=== PATIENT | female | born 1980 | race Caucasian/White ===

== ENCOUNTER 2016-06-19 16:39 | Emergency (ER) | payer MEDICAID ==
[~2016-06-19] VITALS: Ht 170.2 cm; Wt 108.9 kg
[~2016-06-19 16:39] MED LIST: AC500T PO; ALBU8.5H4 IH; ALPR.5T; AMOX500C2 PO; BENZ-13 PO; BENZ200C25 PO; BPR100T PO; BUPR200T PO; CIPR500T4 PO; CPR500T PO; CYCL10TA9 PO; DICY10CA26 PO; DICY20TA57 PO; DULO60CA6 PO; FLUT16SP22 NSEACH; GUAI-370 PO; HYDR-2890 PO; HYDR-3720 PO; HYDR-3812 PO; HYDR-3820 PO; HYDR-700 PO; HYDR1TAB PO; IBP600T1 PO; IBUP-30 PO; LORA-405 PO; LORA1TAB PO; METH-53 PO; METR500T PO; MTF500T PO; NAPR-243 PO; NAPR250T34; NF-ESOM40C; NF-ESOM40C PO; ONDA8TAB13 PO; ONDAN4ODT PO; ORPH100T PO; OSLT75C PO; OXYC-12 PO; OXYC1TAB16 PO; PARO20TA57; PRD20T PO; PREG150C PO; PRM25T PO; PROM5SYR PO; RT-ALBUINH IH; SULF-222 PO; SULF1TAB38 PO; TAPE50TA PO; TYLENOL #3 PO; [UNRECOGNIZED DRUG - CODE] PO; mucinex
[2016-06-19] MEDS ORDERED: INDO50CA (16:56)
[2016-06-19] MEDS ORDERED: PREG200C (16:56)
[2016-06-19] MEDS ORDERED: CITA10TA7 (16:56)
[2016-06-19] MEDS ORDERED: CYPR4TAB (16:56)
[2016-06-19] MEDS ORDERED: OMEP40CA36 (16:56)
[2016-06-19] MEDS ORDERED: AMIT25TA9 (16:56)
[2016-06-19] MEDS ORDERED: ORPH100T (16:56)
[2016-06-19] MEDS ORDERED: DULO60CA58 (16:56)
[2016-06-19] MEDS ORDERED: morphine INJ 10 MG/ML 1ML (SYR OR VIAL) IM STA (17:27)
[2016-06-19] MEDS ORDERED: ORPHENADRINE 60 MG/2 ML (NORFLEX) AMP IM STA (17:27)
--- NOTE | 2016-06-19 17:49 | ED Back Pain ---
General Chief Complaint: Back Problems Stated Complaint: BACK PAIN Nursing Triage Note: AMBULATED TO ROOM 07 WITH COMPLAINTS OF LEFT LOWER/MID ABD PAIN. STATES SHE FELL SEVERAL NIGHTS AGO IN HER BATHROOM BUT TODAY SHE SNEEZED AND FELT A "POP". Nursing Sepsis Screen: No Definite Risk Source of Information: Patient, Spouse Exam Limitations: No Limitations History of Present Illness Time Seen by Provider: 17:17 Initial Comments 35 yo female patient presents to the ED with c/o left mid to low back pain. patient reports falling into a towel rack a few days ago. She then sneezed earlier today and felt a pop in the left lower posterior ribs. Now complains of increased left rib pain. Location: Other (left posterior ribs) Timing/Duration: 4-6 Hours Pain/Injury Location: Other (left posterior ribs) Method of Injury: Other (sneeze) Modifying Factors: Improves With Immobilization, Worse With Movement, Worse With Other (worse with palpation, sneezing, coughing, movement. Denies using home Norflex today.) Associated Symptoms: muscle spasmsNo numbness in legs/feet, No tingling in legs/feet, No sensory/motor loss, No lower back pain, No loss of bladder control , No loss of bowel control Allergies and Home Medications Allergies Coded Allergies: codeine (Verified Adverse Reaction, Mild, NAUSEA, 01/26/15) Uncoded Allergies: SEANSONAL ENVIRONMENTAL (Allergy, Mild, 01/17/14) Home Medications Amitriptyline HCl 25 Mg Tablet #60 (Reported) Citalopram Hydrobromide 10 Mg Tablet #30 (Reported) Cyproheptadine HCl 4 Mg Tablet #60 (Reported) Duloxetine HCl 60 Mg Capsule.dr 60 MG PO DAILY (Reported) Duloxetine HCl 60 Mg Capsule.dr #60 (Reported) Esomeprazole Mag Trihydrate 40 Mg Capsule.dr 40 MG PO DAILY (Reported) Hydrocodone/Acetaminophen 1 Each Tablet #12 1 EACH PO Q6H PRN PRN PAIN Prescribed by: MCKINLEY COLEY on 01/27/16 1535 Hydrocodone/Acetaminophen 1 Each Tablet #10 1 EACH PO Q6H PRN PRN PAIN Prescribed by: NOEMY GAGNON on 06/19/16 1925 Hydroxyzine HCl 25 Mg Tablet 25 MG PO QID (Reported) Indomethacin 50 Mg Capsule #90 (Reported) Lorazepam 1 Mg Tablet 1 MG PO BID (Reported) Omeprazole 40 Mg Capsule. #30 (Reported) Ondansetron 8 Mg Tab.rapdis #10 8 MG PO Q6H PRN PRN NAUSEA Prescribed by: NOEMY GAGNON on 04/12/16 1750 Orphenadrine Citrate 100 Mg Tablet.sa 100 MG PO BID (Reported) Orphenadrine Citrate 100 Mg Tablet.er #60 (Reported) Prednisone 20 Mg Tab #10 40 MG PO DAILY Prescribed by: NOEMY GAGNON on 06/19/16 1855 Pregabalin 150 Mg Capsule 150 MG PO BID (Reported) Pregabalin 200 Mg Capsule #60 (Reported) Constitutional: no symptoms reported Respiratory: No cough, No short of breath, No stridor, No wheezing Cardiovascular: no symptoms reported Gastrointestinal: no symptoms reported Genitourinary: no symptoms reported Musculoskeletal: see HPINo back pain, No joint pain, No neck pain, other ( left posterior rib pain) Skin: No change in color Psychiatric/Neurological: Denies Numbness, Denies Paresthesia, Denies Tingling , Denies Weakness All Other Systems Reviewed Negative Unless Noted: Yes (Negative excepted noted.) Past Jvqoeyt-Likxvv-Ltzhiu Hx Patient Social History Alcohol Use: Denies Use Recreational Drug Use: No Smoking Status: Never a Smoker Type Used: Cigarettes Former Smoker/When Quit: May 19, 1993 Recent Foreign Travel: No Contact w/Someone Who Travel: No Recent Infectious Disease Expo: No Recent Hopitalizations: No Immunizations Up To Date Tetanus Booster (TDap): Less than 5yrs PED Vaccines UTD: No Date of Pneumonia Vaccine: Apr 19, 2013 Date of Influenza Vaccine: Mar 19, 2015 Seasonal Allergies Seasonal Allergies: Yes Surgeries HX Surgeries: Yes (D&C in 1999 and 2001) Surgeries: Adenoidectomy, Gallbladder, Hysterectomy, Tonsillectomy Respiratory Hx Respiratory Disorders: No Cardiovascular Hx Cardiac Disorders: No Neurological Hx Neurological Disorders: No Reproductive System Hx Reproductive Disorders: Yes (UTERINE FIBROIDS) Sexually Transmitted Disease: No HIV/AIDS: No 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 Genitourinary Hx Genitourinary Disorders: No Gastrointestinal Hx Gastrointestinal Disorders: Yes Gastrointestinal Disorders: Gastroesophageal Reflux Musculoskeletal Hx Musculoskeletal Disorders: Yes (Fibromyalgia) Musculoskeletal Disorders: Fibromyalgia, Scoliosis, Chronic Back Pain Endocrine Hx Endocrine Disorders: No HEENT HX ENT Disorders: No Cancer Hx Cancer: No Psychosocial Hx Psychiatric Problems: Yes Behavioral Health Disorders: Anxiety, Depression Integumentary HX Skin/Integumentary Disorder: No Blood Transfusions Hx Blood Disorders: No Reviewed Nursing Assessment Reviewed/Agree w Nursing PMH: Yes Family Medical History Significant Family History: No Pertinent Family Hx Physical Exam Vital Signs Vital Sign - Last 12Hours 06/19/16 16:50 Temp 98.0 Pulse 94 Resp 16 B/P 139/76 Pulse Ox 97 Capillary Refill : Less Than 3 Seconds General Appearance: No Apparent Distress WD/WN Neck: Full Range of Motion Normal Inspection Non Tender Supple Cardiovascular: Regular Rate, Rhythm No Edema No Murmur Normal Peripheral Pulses Respiratory: Lungs Clear Normal Breath Sounds No Respiratory Distress Other ( left posterior lower ribs tender palpation without evidence of ecchymosis, swelling, or deformity.) Gastrointestinal: Normal Bowel Sounds Non Tender SoftNo Distended Back: Normal Inspection No Vertebral Tenderness Other (left posterior lower ribs tender palpation without evidence of ecchymosis, swelling, or deformity.) Extremity: Normal Capillary Refill Normal Inspection No Pedal Edema Neurologic/Psychiatric: Alert Oriented x3 No Motor/Sensory Deficits Normal Mood/Affect Skin: Normal Color Warm/Dry Progress/Results/Core Measures Results/Orders My Orders Orders-NOEMY GAGNON Ribs/Unilateral With Chest (06/19/16 17:27) Morphine Injection (Morphine Injection (06/19/16 17:27) Orphenadrine Injection (Norflex Injectio (06/19/16 17:27) Hydrocodone/Apap 5/325 Tablet (Lortab 5 (06/19/16 19:07) Vital Signs/I&O Vital Sign - Last 12Hours 06/19/16 06/19/16 16:50 19:13 Temp 98.0 98.0 Pulse 94 85 Resp 16 16 B/P 139/76 Pulse Ox 97 94 Blood Pressure Mean: 97 Diagnostic Imaging Diagonstic Imaging: Xray Plain Films/CT/US/NM/MRI: chest (with left ribs) Comments FINDINGS: Lungs appear clear without focal infiltrate or effusion. There is no pneumothorax. Heart size and mediastinal contours appear appropriate. Pulmonary vascularity appears within normal limits. There is no evidence of an acute osseous abnormality. Specifically, no left-sided rib fracture is evident. IMPRESSION: 1. No radiographic evidence of an acute cardiopulmonary process. 2. No rib fracture is evident. Dictated by: Dictated on workstation # [id number] Reviewed: Reviewed by Me (radiology report reviewed by me) Departure Communication Progress Notes Diagnostic findings discussed with the patient. Patient does report improvement in symptoms, but states pain is still a 4/10. Requesting something for pain prior to discharge. Upon discharge patient did report to the nurse that she is allergic to tramadol. Rx changed to hydrocodone. Patient instructed to follow-up with her primary care physician for all further prescriptions for narcotics. Impression Impression: Primary Impression: Upper back strain Qualified Code: S29.012A - Strain of muscle and tendon of back wall of thorax , initial encounter Disposition: HOME, SELF-CARE Condition: Improved Departure-Patient Inst. Decision time for Depature: 18:54 Referrals: [facility] (PCP/Family) Primary Care Physician Patient Instructions: Muscle Strain (DC) Add. Discharge Instructions: All discharge instructions reviewed with patient and/or family. Voiced understanding. Medications as instructed. Continue usual home medications. No heavy lifting, pushing, pulling, twisting, bending, climbing. Increase activity as tolerated. Ice packs or heating pad as needed for pain. Follow-up with your family practitioner for recheck if no improvement in symptoms. Return to the emergency department for worsened symptoms or any other concerns. Scripts Hydrocodone/Acetaminophen (Hydrocodon -Acetaminophen 5-325)1 Each Tablet1 Each PO Q6H PRN PAIN #10 TAB Ref 0 Prov:NOEMY GAGNON 06/19/16 Prednisone 20 Mg Tab40 Mg PO DAILY #10 TAB Ref 0 Prov:NOEMY GAGNON 06/19/16 Work/School Note: Work Release Form Date Seen in the Emergency Department: Jun 19, 2016 Return to Work: Jun 21, 2016 NOEMY GAGNON Jun 19, 2016 17:49
--- NOTE | 2016-06-19 18:08 | Diagnostic Imaging Report ---
EXAMINATION: Left rib series with PA chest. INDICATION: Left chest pain after sneezing. COMPARISON: Prior study from April 12, 2016. FINDINGS: Lungs appear clear without focal infiltrate or effusion. There is no pneumothorax. Heart size and mediastinal contours appear appropriate. Pulmonary vascularity appears within normal limits. There is no evidence of an acute osseous abnormality. Specifically, no left-sided rib fracture is evident. IMPRESSION: 1. No radiographic evidence of an acute cardiopulmonary process. 2. No rib fracture is evident. Dictated by: Dictated on workstation # [id number]
[2016-06-19] MEDS ORDERED: TRAM50TA2 PO (18:55)
[2016-06-19] MEDS ORDERED: PRD20T PO (18:55)
[2016-06-19] MEDS ORDERED: HYDROcodone/APAP 5 MG/325 MG (LORTAB) TAB PO STA (19:07)
[2016-06-19 19:13] VITALS: BP 143/99
[2016-06-19] MEDS ORDERED: HYDR-3812 PO (19:25)
== END 2016-06-19 19:13 | disposition home or self-care (01) ==
LOC: EDUNIT# 16:39 → ER 16:40
DX: S29.012A Strain of muscle and tendon of back wall of thorax, initial encounter (principal); W01.0XXA Fall on same level from slipping, tripping and stumbling without subsequent striking against object, initial encounter; Y92.012 Bathroom of single-family (private) house as the place of occurrence of the external cause; Y99.8 Other external cause status
CPT/HCPCS: 71101; 96372; 99281

== ENCOUNTER 2017-04-15 09:05 | Emergency (ER) | payer SELFPAY ==
[~2017-04-15] VITALS: Ht 170.2 cm; Wt 107.0 kg
[~2017-04-15 09:05] MED LIST changes: +AMIT25TA9; +CITA10TA7; +CYPR4TAB; +DULO60CA58; +INDO50CA; +OMEP40CA36; +ORPH100T; +PREG200C; +TRAM50TA2 PO
--- OUTSIDE RECORDS SUMMARY | 2017-04-15 09:11 | XMS REPORT ---
Author Author CARMENCITA REID Organization [facility] Address [address] [place] [address] Care Team Providers Care Hat Blocking Machine Operator Name Role Phone CARMENCITA REID Unavailable PROBLEMS Type Condition ICD9-CM Code [id number] Code Onset Dates Condition Status SNOMED Code Problem GERD (gastroesophageal reflux disease) K21.9 Active 247472343 Problem Anxiety F41.9 Active 53636725 Problem Allergic rhinitis J30.9 Active 01608500 Problem Generalized anxiety disorder F41.1 Active 77946534 Problem Major depressive disorder, recurrent, moderate F33.1 Active 11694367 Problem Scoliosis, unspecified scoliosis type, unspecified spinal region M41.9 Active 586891090 Problem Nonintractable migraine, unspecified migraine type G43.009 Active 82315355 Problem Panic disorder [episodic paroxysmal anxiety] without agoraphobia F41.0 Active 92844633 Problem Intractable migraine with aura without status migrainosus G43.119 Active 136341682 Problem Eye exam normal Z01.00 Active 524523765 Problem Encounter for dental examination Z01.20 Active 788330736 Problem Idiopathic neuropathy G60.9 Active 32194308 Assessment Generalized anxiety disorder F41.1 14 Jan, 2016 Active 90509279 Problem Fibromyalgia M79.7 Active 66473950 ALLERGIES Unknown Allergies SOCIAL HISTORY No smoking Hx information available PLAN OF CARE VITAL SIGNS MEDICATIONS Unknown Medications RESULTS No Results PROCEDURES Procedure Date Ordered Related Diagnosis Body Site Psychotherapy, patient &/family, 45 minutes, established patient Jan 31, 2016 IMMUNIZATIONS No Known Immunizations
--- OUTSIDE RECORDS SUMMARY | 2017-04-15 09:11 | XMS REPORT ---
Author Author YUE RAMIREZ [facility] [employer] Address Unknown Phone Unavailable Care Team Providers Care Internal Wholesaler Name Role Phone YUE RAMIREZ CP Unavailable Allergies, Adverse Reactions, Alerts Substance Reaction Event Type Tramadol HCl Info Not Available Drug Allergy Naproxen rash Drug Allergy Codeine Sulfate Info Not Available Drug Allergy Augmentin rash Drug Allergy Problems Problem Type Condition Code Onset Dates Condition Status Assessment Anxiety disorder, unspecified F41.9 Active Problem Encounter for dental examination Z01.20 Active Assessment Major depression F32.9 Active Problem Nonintractable migraine, unspecified migraine type G43.009 Active Problem Anxiety F41.9 Active Problem Scoliosis, unspecified scoliosis type, unspecified spinal region M41.9 Active Problem Fibromyalgia M79.7 Active Problem Idiopathic neuropathy G60.9 Active Problem Allergic rhinitis J30.9 Active Problem GERD (gastroesophageal reflux disease) K21.9 Active Medications Medication Code System Code Instructions Start Date End Date Status Dosage HydrOXYzine HCl [facility] [address]-54 25 MG Orally 4 times a day October 11, 2015 1 tablet as needed Orphenadrine Citrate ER [facility] [address]-66 100 MG Orally twice a day September 1 tablet Cymbalta [facility] [address]-78 60 MG Orally Twice a day November 15, 2015 1 capsule Ativan [facility] [address]-31 1 MG Orally three times a day Jun 26, 2015 1 tablet as needed Imitrex [facility] [address]-06 100 MG Orally Once a day at onset of headache and may repeat in 2 hours November 14, 2015 1 tablet as needed for migraine Trazodone HCl [facility] [address]-33 100 MG Orally Once a day November 15, 2015 1 tablet at bedtime Hydrocodone-Acetaminophen [facility] [address]-13 10-325 MG Orally every 6 hrs Mar 28, 2015 1 tablet as needed for severe pain Lyrica [facility] [address]-05 200 MG Orally Twice a day August 17, 2015 1 capsule Flonase Allergy Relief [facility] [address]-12 50 MCG/ACT Nasally Once a day September 18, 2015 2 sprays in each nostril Omeprazole [facility] [address]-89 40 mg Orally Once a day September 18, 2015 1 capsule Procedures Procedure Coding System Code Date MH Office Visit, Est Pt., Level 3 CPT-4 01051 November 15, 2015 Vital Signs Date/Time: November 15, 2015 Cardiac Monitoring Heart Rate 104 bpm Weight 226.0 lbs Height 67 in Blood Pressure Diastolic 84 mmHg Blood Pressure Systolic 110 mmHg Results No Known Results Summary Purpose [employer] Submission
--- OUTSIDE RECORDS SUMMARY | 2017-04-15 09:11 | XMS REPORT ---
Author Author FADIA LAURA Organization [employer] Address Unknown Phone Unavailable Care Team Providers Care Machine Scallop Cutter Name Role Phone FADIA LAURA CP Unavailable Allergies No Known Allergies Problems Problem Type Condition Code Onset Dates Condition Status Problem Abdominal pain, right lower quadrant 789.03 Active Problem Explosive personality disorder 301.3 Active Problem Sciatica 724.3 Active Problem Acute sinusitis, unspecified 461.9 Active Problem Leukorrhea, not specified as infective 623.5 Active Problem Encounter for dental examination Z01.20 Active Problem Routine general medical examination at health care facility V70.0 Active Problem Anxiety state, unspecified 300.00 Active Problem Other specified counseling V65.49 Active Problem Scoliosis (and kyphoscoliosis), idiopathic 737.30 Active Problem Dysfunction of Eustachian tube 381.81 Active Problem Other and unspecified noninfectious gastroenteritis and colitis 558.9 Active Problem Candidiasis of skin and nails 112.3 Active Problem Abdominal pain, left lower quadrant 789.04 Active Problem Migraine with aura, without mention of intractable migraine without mention of status migrainosus 346.00 Active Medications Medication Code System Code Instructions Start Date End Date Status Dosage Nexium [facility] [address]-03 40 MG Jun 27, 2014 1 capsule by Oral route 1 time per day Results No Known Results Summary Purpose [employer] Submission
--- OUTSIDE RECORDS SUMMARY | 2017-04-15 09:11 | XMS REPORT ---
Author Author FADIA LAURA Organization [employer] Address Unknown Phone Unavailable Care Team Providers Care Email Specialist Name Role Phone FADIA LAURA CP Unavailable Allergies No Known Allergies Problems Problem Type Condition Code Onset Dates Condition Status Problem Migraine with aura, without mention of intractable migraine without mention of status migrainosus 346.00 Active Problem Sciatica 724.3 Active Problem Abdominal pain, right lower quadrant 789.03 Active Problem Leukorrhea, not specified as infective 623.5 Active Problem Other specified counseling V65.49 Active Problem Acute sinusitis, unspecified 461.9 Active Problem Anxiety state, unspecified 300.00 Active Problem Explosive personality disorder 301.3 Active Problem Scoliosis (and kyphoscoliosis), idiopathic 737.30 Active Problem Routine general medical examination at health care facility V70.0 Active Problem Abdominal pain, left lower quadrant 789.04 Active Problem Dysfunction of Eustachian tube 381.81 Active Problem Other and unspecified noninfectious gastroenteritis and colitis 558.9 Active Problem Candidiasis of skin and nails 112.3 Active Medications Medication Code System Code Instructions Start Date End Date Status Dosage Hydrocodone-Acetaminophen [facility] [address]-78 10-325 MG Orally every 6 hrs Mar 28, 2015 1 tablet as needed Results No Known Results Summary Purpose [employer] Submission
--- OUTSIDE RECORDS SUMMARY | 2017-04-15 09:12 | XMS REPORT ---
Author Author FADIA LAURA [facility] Address [address] [place] [address] Care Team Providers Care Tobacco Grower Name Role Phone FADIA LAURA Unavailable PROBLEMS Type Condition ICD9-CM Code [id number] Code Onset Dates Condition Status SNOMED Code Problem Seasonal allergic rhinitis due to pollen J30.1 Active 39286495 Problem Lumbago with sciatica, unspecified side M54.40 Active 36771332 Problem Other headache syndrome G44.89 Active 362753732 Problem Tonsillar calculus J35.8 Active 4978334 Problem Idiopathic neuropathy G60.9 Active 06144619 Problem Irritable bowel syndrome with diarrhea K58.0 Active 856432897 Problem Encounter for dental examination Z01.20 Active 900573627 Problem Eye exam normal Z01.00 Active 872205895 Problem Right arm numbness R20.2 Active 507970824 Problem Post concussion syndrome F07.81 Active 51371772 Problem Acute non intractable tension-type headache G44.209 Active 740713566 Problem Right carpal tunnel syndrome G56.01 Active 566638047474818 Problem GERD (gastroesophageal reflux disease) K21.9 Active 960564039 Problem Anxiety F41.9 Active 50288268 Problem Fibromyalgia M79.7 Active 37187215 Problem Allergic rhinitis J30.9 Active 45979158 Problem Generalized anxiety disorder F41.1 Active 50984994 Problem Panic disorder [episodic paroxysmal anxiety] without agoraphobia F41.0 Active 522631917 Problem Scoliosis, unspecified scoliosis type, unspecified spinal region M41.9 Active 330345953 Problem Major depressive disorder, recurrent, moderate F33.1 Active 24635114 Problem Intractable migraine with aura without status migrainosus G43.119 Active 671096201 Problem Migraine without aura and without status migrainosus, not intractable G43.009 Active 563173124 ALLERGIES No Information SOCIAL HISTORY Never Assessed PLAN OF CARE VITAL SIGNS MEDICATIONS Medication Instructions Dosage Frequency Start Date End Date Duration Status Elavil 25 MG Orally Once a day at bedtime for headache 1-2 tablet Apr Active RESULTS No Results PROCEDURES No Known procedures IMMUNIZATIONS No Known Immunizations MEDICAL (GENERAL) HISTORY Type Description Date Medical History gastroesophageal reflux disease (GERD) Medical History scoliosis Medical History depression Medical History HPV Medical History herpetic lesion of vulva Surgical History tubal ligation 2002 Surgical History tonsillectomy and adenoidectomy 1994 Surgical History hysterectomy for fibroids at [facility] by [facility] 06/2020 Surgical History cholecystectomy 2005 Surgical History Labrum repair 01/30/2016 Hospitalization History surgeries Hospitalization History [facility] for bruised ribs/post fall 12/09/15
--- OUTSIDE RECORDS SUMMARY | 2017-04-15 09:12 | XMS REPORT ---
Author Author FADIA LAURA [facility] Address [address] [place] [address] Care Team Providers Care Canning Machine Operator Name Role Phone FADIA LAURA Unavailable PROBLEMS Type Condition ICD9-CM Code [id number] Code Onset Dates Condition Status SNOMED Code Problem Panic disorder [episodic paroxysmal anxiety] without agoraphobia F41.0 Active 17943553 Problem Generalized anxiety disorder F41.1 Active 42212836 Problem Major depressive disorder, recurrent, moderate F33.1 Active 36524816 Problem Post concussion syndrome F07.81 Active 42035152 Assessment Post concussion syndrome F07.81 Apr, Active 64793552 Problem Lumbago with sciatica, unspecified side M54.40 Active 42012161 Problem Seasonal allergic rhinitis due to pollen J30.1 Active 00500681 Problem Migraine without aura and without status migrainosus, not intractable G43.009 Active 546072686 Problem Tonsillar exudate J35.8 Active 657027227 Problem Other headache syndrome G44.89 Active 108900270 Problem Idiopathic neuropathy G60.9 Active 40189000 Problem Fibromyalgia M79.7 Active 95946030 Problem Eye exam normal Z01.00 Active 091036807 Problem Encounter for dental examination Z01.20 Active 228055067 Problem Anxiety F41.9 Active 01520544 Problem Nonintractable migraine, unspecified migraine type G43.009 Active 43771627 Problem GERD (gastroesophageal reflux disease) K21.9 Active 376077338 Problem Scoliosis, unspecified scoliosis type, unspecified spinal region M41.9 Active 797187578 Problem Allergic rhinitis J30.9 Active 49859246 Problem Intractable migraine with aura without status migrainosus G43.119 Active 961621454 ALLERGIES Substance Reaction Event Type Date Status Tramadol HCl Unknown Drug Allergy Apr, Active Naproxen rash Drug Allergy Apr, Active Codeine Sulfate Unknown Drug Allergy Apr, Active Augmentin rash Drug Allergy Apr, Active SOCIAL HISTORY No smoking Hx information available PLAN OF CARE VITAL SIGNS Height 67 in 2016-04-25 Weight 245 lbs 2016-04-25 Heart Rate 88 bpm 2016-04-25 Respiratory Rate 20 2016-04-25 BMI 38.37 kg/m2 2016-04-25 Blood pressure systolic 100 mmHg 2016-04-25 Blood pressure diastolic 70 mmHg 2016-04-25 MEDICATIONS Medication Instructions Dosage Frequency Start Date End Date Duration Status Omeprazole 40 MG TAKE ONE CAPSULE BY MOUTH ONCE DAILY 90 Active Lyrica 200 MG Orally Twice a day 1 capsule 12h Jul, 30 days Active HydrOXYzine HCl 25 MG Orally 4 times a day 1 tablet as needed 6h September, 30 days Active Citalopram Hydrobromide 10 MG Orally Once a day 1 tablet 24h Dec, 30 days Active Promethazine-Codeine 6.25-10 MG/5ML Orally every 6 hrs 5 - 10 ml as needed 6h Mar, Active Orphenadrine Citrate ER 100 MG TAKE ONE TABLET BY MOUTH TWICE DAILY 30 Active Indomethacin 50 mg Orally every 8 hours, PRN 1 capsule with food or milk Apr, Active Promethazine HCl 25 MG TAKE ONE TABLET BY MOUTH EVERY 6 HOURS NEEDED FOR NAUSEA 7 Active Ativan 1 MG Orally three times a day 1 tablet as needed 8h Jun, 30 days Active Albuterol Sulfate (2.5 MG/3ML) 0.083% Inhalation every 6 hrs as needed for cough 3 ml Mar, Active Ibuprofen 800 MG Orally Three times a day 1 tablet 8h Active Cymbalta 60 MG Orally Twice a day 1 capsule 12h Oct, 30 days Active Cyproheptadine HCl 4 MG Orally once a day 2 tablet 24h Mar, 30 day(s) Active Elavil 25 MG Orally Once a day at bedtime for headache 1-2 tablet Apr Active Maxalt 10 mg Orally Once a day 1 tablet as needed May repeat in 2 hours 24h Nov, Active RESULTS No Results PROCEDURES Procedure Date Ordered Related Diagnosis Body Site Office Visit, Est Pt., Level 3 Apr 25, 2016 IMMUNIZATIONS No Known Immunizations
--- OUTSIDE RECORDS SUMMARY | 2017-04-15 09:12 | XMS REPORT ---
Author Author FADIA LAURA Organization [employer] Address Unknown Phone Unavailable Care Team Providers Care Section Weaver Name Role Phone FADIA LAURA CP Unavailable Allergies No Known Allergies Problems Problem Type Condition Code Onset Dates Condition Status Problem Encounter for dental examination Z01.20 Active Problem Nonintractable migraine, unspecified migraine type G43.009 Active Problem Anxiety F41.9 Active Problem Scoliosis, unspecified scoliosis type, unspecified spinal region M41.9 Active Problem Fibromyalgia M79.7 Active Problem Idiopathic neuropathy G60.9 Active Problem Allergic rhinitis J30.9 Active Problem GERD (gastroesophageal reflux disease) K21.9 Active Medications No Known Medications Results No Known Results Summary Purpose [employer]ClinicalWorks Submission
--- OUTSIDE RECORDS SUMMARY | 2017-04-15 09:12 | XMS REPORT ---
Author Author FADIA LAURA [facility] Address [address] [place] [address] Care Team Providers Care Nurse Midwife Name Role Phone FADIA LAURA Unavailable PROBLEMS Type Condition ICD9-CM Code [id number] Code Onset Dates Condition Status SNOMED Code Problem Encounter for dental examination Z01.20 Active 958058858 Problem Fibromyalgia M79.7 Active 44515669 Problem Idiopathic neuropathy G60.9 Active 85413471 Assessment SLAP lesion of right shoulder S43.431A Dec, Active 341379813 Assessment Intractable migraine with aura without status migrainosus G43.119 Dec, Active 743629945 Problem Eye exam normal Z01.00 Active 013414240 Problem Intractable migraine with aura without status migrainosus G43.119 Active 789729045 Problem Scoliosis, unspecified scoliosis type, unspecified spinal region M41.9 Active 831377122 Problem Allergic rhinitis J30.9 Active 95967518 Problem GERD (gastroesophageal reflux disease) K21.9 Active 726157269 Problem Nonintractable migraine, unspecified migraine type G43.009 Active 02785572 Problem Anxiety F41.9 Active 54124493 ALLERGIES Substance Reaction Event Type Date Status Tramadol HCl Unknown Drug Allergy Dec, Active Naproxen rash Drug Allergy Dec, Active Codeine Sulfate Unknown Drug Allergy Dec, Active Augmentin rash Drug Allergy Dec, Active SOCIAL HISTORY No smoking Hx information available PLAN OF CARE VITAL SIGNS Height 67 in 2016-01-08 Weight 229.4 lbs 2016-01-08 Heart Rate 80 bpm 2016-01-08 Respiratory Rate 16 2016-01-08 BMI 35.93 kg/m2 2016-01-08 Blood pressure systolic 114 mmHg 2016-01-08 Blood pressure diastolic 74 mmHg 2016-01-08 MEDICATIONS Medication Instructions Dosage Frequency Start Date End Date Duration Status Promethazine HCl 25 MG Orally every 6 hrs 1 tablet as needed for nausea 6h Active Cymbalta 60 MG Orally Twice a day 1 capsule 12h Oct, 30 day(s) Active Flonase Allergy Relief 50 MCG/ACT Nasally Once a day 2 sprays in each nostril 24h September, 30 day(s) Active Trazodone HCl 100 MG Orally Once a day 1 tablet at bedtime 24h Oct, 30 day(s) Active Ativan 1 MG Orally three times a day 1 tablet as needed 8h 08 Jun, 2015 Active Orphenadrine Citrate ER 100 MG Orally twice a day 1 tablet 12h September, 30 Active HydrOXYzine HCl 25 MG Orally 4 times a day 1 tablet as needed 6h September, 30 days Active Hydrocodone-Acetaminophen 10-325 MG Orally every 6 hrs 1 tablet as needed for severe pain 6h Mar, Active Ibuprofen 800 MG Orally Three times a day 1 tablet 8h Active Atenolol 25 MG Orally Once a day 1 tablet 24h Nov, Active Omeprazole 40 mg Orally Once a day 1 capsule 24h September, 30 day(s ) Active Lyrica 200 MG Orally Twice a day 1 capsule 12h Jul, 30 days Active Maxalt 10 mg Orally Once a day 1 tablet as needed May repeat in 2 hours 24h Nov, Active RESULTS No Results PROCEDURES Procedure Date Ordered Related Diagnosis Body Site Office Visit, Est Pt., Level 3 Jan 08, 2016 IMMUNIZATIONS No Known Immunizations
--- OUTSIDE RECORDS SUMMARY | 2017-04-15 09:12 | XMS REPORT ---
Author Author FADIA LAURA Organization [employer] Address Unknown Phone Unavailable Care Team Providers Care Freight Shipping Agent Name Role Phone FADIA LAURA CP Unavailable Allergies No Known Allergies Problems Problem Type Condition Code Onset Dates Condition Status Problem Nonintractable migraine, unspecified migraine type G43.009 Active Problem Intractable migraine with aura without status migrainosus G43.119 Active Problem Scoliosis, unspecified scoliosis type, unspecified spinal region M41.9 Active Problem Other headache syndrome G44.89 Active Problem Seasonal allergic rhinitis due to pollen J30.1 Active Problem Tonsillar exudate J35.8 Active Problem Major depressive disorder, recurrent, moderate F33.1 Active Problem Panic disorder [episodic paroxysmal anxiety] without agoraphobia F41.0 Active Problem Migraine without aura and without status migrainosus, not intractable G43.009 Active Problem Generalized anxiety disorder F41.1 Active Problem Eye exam normal Z01.00 Active Problem Fibromyalgia M79.7 Active Problem GERD (gastroesophageal reflux disease) K21.9 Active Problem Encounter for dental examination Z01.20 Active Problem Allergic rhinitis J30.9 Active Problem Idiopathic neuropathy G60.9 Active Problem Anxiety F41.9 Active Medications No Known Medications Results No Known Results Summary Purpose [employer]ClinicalWorks Submission
--- OUTSIDE RECORDS SUMMARY | 2017-04-15 09:12 | XMS REPORT ---
Author Author YUE RAMIREZ [facility] e[employer] Address Unknown Phone Unavailable Care Team Providers Care Psych Rn Name Role Phone YUE RAMIREZ CP Unavailable [...] Problem Dysfunction of Eustachian tube 381.81 Active Assessment Anxiety state, unspecified F41.1 Active Problem Other and unspecified noninfectious gastroenteritis and colitis 558.9 Active Assessment Major depression F32.9 Active Problem Candidiasis of skin and nails 112.3 Active Medications Medication Code System Code Instructions Start Date End Date Status Dosage Flonase [facility] [address]-93 50 mcg/actuation 2 spray(s) intranasally once a day August 03, 2013 2 sprays by Nasal route 1 time per day Lyrica [facility] [address]-88 200 MG Orally 2 times a day Jul 11, 2014 1 capsule by Oral route 2 times per day for fibromyalgia (729.1) or idioapathic neuropathy (356.9) Robaxin-750 [facility] [address]-85 750 MG Orally 3 times a day as needed for pain November 09, 2014 1 tablet Cymbalta [facility] [address]-73 60 MG Orally Once a day Mar 03, 2015 1 capsule Ativan [facility] [address]-89 1 MG 2 times a day Jul 11, 2014 0.5-1 tablet by Oral route 2 times per day PRN Must last 30 days-take only for severe anxiety Nexium [facility] [address]-49 40 MG Jun 27, 2014 1 capsule by Oral route 1 time per day Orphenadrine Citrate ER [facility] 62671941634 100 MG Orally 2 times a day 1 tablet Hydrocodone-Acetaminophen [facility] [address]-53 10-325 MG Orally every 6 hrs Mar 28, 2015 1 tablet as needed Promethazine HCl [facility] 53554873078 25 MG Orally every 6 hrs 1 tablet as needed for nausea Procedures Procedure Coding System Code Date MH Office Visit, Est Pt., Level 3 CPT-4 47054 Mar 31, 2015 Vital Signs Date/Time: Mar 31, 2015 Cardiac Monitoring Heart Rate 76 bpm Weight 231.0 lbs Height 67 in BMI 36.18 Index Blood Pressure Diastolic 76 mmHg Blood Pressure Systolic 118 mmHg Results No Known Results Summary Purpose [employer]ClinicalWorks Submission
--- OUTSIDE RECORDS SUMMARY | 2017-04-15 09:12 | XMS REPORT ---
Author Author CHA YOON [facility] eClinical[employer] Address Unknown Phone Unavailable Care Team Providers Care Managing Partner Name Role Phone CHA YOON CP Unavailable Allergies No Known Allergies Problems [...] Dysfunction of Eustachian tube 381.81 Active Assessment Injury of peroneal tendon of right foot S89.81XA Active Problem Other and unspecified noninfectious gastroenteritis and colitis 558.9 Active Assessment Right ankle sprain S93.401A Active Problem Candidiasis of skin and nails 112.3 Active Medications No Known Medications Procedures Procedure Coding System Code Date Office Visit, Est Pt., Level 3 CPT-4 86871 Apr 27, 2015 Vital Signs Date/Time: Apr 27, 2015 Blood Pressure Diastolic 70 mmHg Blood Pressure Systolic 110 mmHg Height 67 in Results No Known Results Summary Purpose eClinicalWorks Submission
--- OUTSIDE RECORDS SUMMARY | 2017-04-15 09:12 | XMS REPORT ---
Author Author FADIA LAURA Organization [employer] Address Unknown Phone Unavailable Care Team Providers Care Spring Coiler Name Role Phone FADIA LAURA CP Unavailable Allergies No Known Allergies Problems Problem Type Condition Code Onset Dates Condition Status Problem Routine general medical examination at health care facility V70.0 Active Problem Other specified counseling V65.49 Active Problem Scoliosis (and kyphoscoliosis), idiopathic 737.30 Active Problem GERD (gastroesophageal reflux disease) K21.9 Active Assessment GERD (gastroesophageal reflux disease) K21.9 Active Problem Fibromyalgia M79.7 Active Assessment Fibromyalgia M79.7 Active Problem Allergic rhinitis J30.9 Active Problem Acute sinusitis, unspecified 461.9 Active Problem Leukorrhea, not specified as infective 623.5 Active Problem Idiopathic neuropathy G60.9 Active Problem Encounter for dental examination Z01.20 Active Problem Dysfunction of Eustachian tube 381.81 Active Problem Other and unspecified noninfectious gastroenteritis and colitis 558.9 Active Assessment Allergic rhinitis J30.9 Active Problem Abdominal pain, left lower quadrant 789.04 Active Problem Abdominal pain, right lower quadrant 789.03 Active Problem Sciatica 724.3 Active Problem Candidiasis of skin and nails 112.3 Active Problem Explosive personality disorder 301.3 Active Problem Migraine with aura, without mention of intractable migraine without mention of status migrainosus 346.00 Active Problem Anxiety state, unspecified 300.00 Active Medications Medication Code System Code Instructions Start Date End Date Status Dosage Parafon Forte DSC [facility] [address]-53 500 MG Orally Three times a day September 1 tablet Omeprazole [facility] [address]-09 40 mg Orally Once a day September 18, 2015 1 capsule Flonase Allergy Relief [facility] [address]-99 50 MCG/ACT Nasally Once a day September 18, 2015 2 sprays in each nostril Results No Known Results Summary Purpose eClinicalWorks Submission
--- OUTSIDE RECORDS SUMMARY | 2017-04-15 09:13 | XMS REPORT ---
Author Author FADIA LAURA [facility] Address [address] [place] [address] Care Team Providers Care Track Oiler Name Role Phone FADIA LAURA Unavailable PROBLEMS Type Condition ICD9-CM Code [id number] Code Onset Dates Condition Status SNOMED Code Problem Seasonal allergic rhinitis due to pollen J30.1 Active 58999869 Problem Lumbago with sciatica, unspecified side M54.40 Active 23439680 Problem Other headache syndrome G44.89 Active 491107992 Problem Tonsillar calculus J35.8 Active 6700553 Problem Idiopathic neuropathy G60.9 Active 49251135 Problem Irritable bowel syndrome with diarrhea K58.0 Active 608395465 Problem Encounter for dental examination Z01.20 Active 063987816 Problem Eye exam normal Z01.00 Active 731683711 Problem Right arm numbness R20.2 Active 754652200 Problem Post concussion syndrome F07.81 Active 94192106 Problem Acute non intractable tension-type headache G44.209 Active 190062386 Problem Right carpal tunnel syndrome G56.01 Active 930075208281718 Problem GERD (gastroesophageal reflux disease) K21.9 Active 206327262 Problem Anxiety F41.9 Active 21984368 Problem Fibromyalgia M79.7 Active 65260620 Problem Allergic rhinitis J30.9 Active 63367691 Problem Generalized anxiety disorder F41.1 Active 48560015 Problem Panic disorder [episodic paroxysmal anxiety] without agoraphobia F41.0 Active 255676946 Problem Scoliosis, unspecified scoliosis type, unspecified spinal region M41.9 Active 853261540 Problem Major depressive disorder, recurrent, moderate F33.1 Active 40145735 Problem Intractable migraine with aura without status migrainosus G43.119 Active 034983187 Problem Migraine without aura and without status migrainosus, not intractable G43.009 Active 166830248 ALLERGIES No Information SOCIAL HISTORY Never Assessed PLAN OF CARE VITAL SIGNS MEDICATIONS Unknown Medications RESULTS No Results PROCEDURES No Known procedures IMMUNIZATIONS No Known Immunizations MEDICAL (GENERAL) HISTORY Type Description Date Medical History gastroesophageal reflux disease (GERD) Medical History scoliosis Medical History depression Medical History HPV Medical History herpetic lesion of vulva Surgical History tubal ligation 2002 Surgical History tonsillectomy and adenoidectomy 1994 Surgical History hysterectomy for fibroids at [facility] by [facility] 06/2020 Surgical History cholecystectomy 2005 Surgical History Labrum repair 01/30/2016 Hospitalization History surgeries Hospitalization History [facility] for bruised ribs/post fall 12/09/15
--- OUTSIDE RECORDS SUMMARY | 2017-04-15 09:13 | XMS REPORT ---
Author Author FADIA LAURA [facility] Address [address] [place] [address] Care Team Providers Care Embedded Software Manager Name Role Phone FADIA LAURA Unavailable PROBLEMS Type Condition ICD9-CM Code BWM88-PT Code Onset Dates Condition Status SNOMED Code Problem GERD (gastroesophageal reflux disease) K21.9 Active 218805924 Problem Anxiety F41.9 Active 79874125 Problem Allergic rhinitis J30.9 Active 44659712 Problem Eye exam normal Z01.00 Active 038847020 Problem Encounter for dental examination Z01.20 Active 642464055 Problem Idiopathic neuropathy G60.9 Active 89016273 Problem Fibromyalgia M79.7 Active 08079532 Problem Generalized anxiety disorder F41.1 Active 43625282 Problem Major depressive disorder, recurrent, moderate F33.1 Active 35257348 Problem Scoliosis, unspecified scoliosis type, unspecified spinal region M41.9 Active 915206475 Problem Nonintractable migraine, unspecified migraine type G43.009 Active 11599135 Problem Panic disorder [episodic paroxysmal anxiety] without agoraphobia F41.0 Active 84128958 Problem Intractable migraine with aura without status migrainosus G43.119 Active 263310697 ALLERGIES Unknown Allergies SOCIAL HISTORY No smoking Hx information available PLAN OF CARE VITAL SIGNS MEDICATIONS Unknown Medications RESULTS No Results PROCEDURES No Known procedures IMMUNIZATIONS No Known Immunizations
--- OUTSIDE RECORDS SUMMARY | 2017-04-15 09:13 | XMS REPORT ---
Author Author FADIA LAURA [facility] Address [address] [place] [address] Care Team Providers Care Power Plant Technician Name Role Phone FADIA LAURA Unavailable PROBLEMS Type Condition ICD9-CM Code [id number] Code Onset Dates Condition Status SNOMED Code Problem Seasonal allergic rhinitis due to pollen J30.1 Active 15551642 Problem Lumbago with sciatica, unspecified side M54.40 Active 28240936 Problem Other headache syndrome G44.89 Active 708303490 Problem Tonsillar calculus J35.8 Active 3396047 Problem Idiopathic neuropathy G60.9 Active 74284899 Problem Irritable bowel syndrome with diarrhea K58.0 Active 790492709 Problem Encounter for dental examination Z01.20 Active 832554662 Problem Eye exam normal Z01.00 Active 331383029 Problem Right arm numbness R20.2 Active 070015303 Problem Post concussion syndrome F07.81 Active 05346610 Problem Acute non intractable tension-type headache G44.209 Active 282831678 Problem Right carpal tunnel syndrome G56.01 Active 828354961498282 Problem GERD (gastroesophageal reflux disease) K21.9 Active 006829506 Problem Anxiety F41.9 Active 63629891 Problem Fibromyalgia M79.7 Active 95093064 Problem Allergic rhinitis J30.9 Active 97120646 Problem Generalized anxiety disorder F41.1 Active 65838031 Problem Panic disorder [episodic paroxysmal anxiety] without agoraphobia F41.0 Active 829129990 Problem Scoliosis, unspecified scoliosis type, unspecified spinal region M41.9 Active 591072519 Problem Major depressive disorder, recurrent, moderate F33.1 Active 52230102 Problem Intractable migraine with aura without status migrainosus G43.119 Active 005292012 Problem Migraine without aura and without status migrainosus, not intractable G43.009 Active 603857030 ALLERGIES No Information SOCIAL HISTORY Never Assessed PLAN OF CARE VITAL SIGNS MEDICATIONS Medication Instructions Dosage Frequency Start Date End Date Duration Status Lyrica 200 MG Orally Twice a day 1 capsule 12h Jul, 28 days Active RESULTS No Results PROCEDURES No Known procedures IMMUNIZATIONS No Known Immunizations MEDICAL (GENERAL) HISTORY Type Description Date Medical History gastroesophageal reflux disease (GERD) Medical History scoliosis Medical History depression Medical History HPV Medical History herpetic lesion of vulva Surgical History tubal ligation 2002 Surgical History tonsillectomy and adenoidectomy 1994 Surgical History hysterectomy for fibroids at [facility] by [facility] 06/2020 Surgical History cholecystectomy 2005 Surgical History Labrum repair 01/30/2016 Hospitalization History surgeries Hospitalization History [facility] for bruised ribs/post fall 12/09/15
--- OUTSIDE RECORDS SUMMARY | 2017-04-15 09:13 | XMS REPORT ---
Author Author FADIA LAURA [facility] eClinicalWorks Address Unknown Phone Unavailable Care Team Providers Care Scrubbing Machine Operator Name Role Phone FADIA LAURA CP Unavailable Allergies No Known Allergies Problems Problem Type Condition Code Onset Dates Condition Status Problem Eye exam normal Z01.00 Active Problem Idiopathic neuropathy G60.9 Active Problem Encounter for dental examination Z01.20 Active Problem Scoliosis, unspecified scoliosis type, unspecified spinal region M41.9 Active Problem Nonintractable migraine, unspecified migraine type G43.009 Active Problem Intractable migraine with aura without status migrainosus G43.119 Active Problem GERD (gastroesophageal reflux disease) K21.9 Active Problem Fibromyalgia M79.7 Active Problem Anxiety F41.9 Active Problem Allergic rhinitis J30.9 Active Medications Medication Code System Code Instructions Start Date End Date Status Dosage Hydrocodone-Acetaminophen [facility] [address]-68 Mar 28, 2015 not defined Results No Known Results Summary Purpose eClinicalWorks Submission
--- OUTSIDE RECORDS SUMMARY | 2017-04-15 09:13 | XMS REPORT ---
Author Author YUE RAMIREZ [facility] eClinical[employer] Address Unknown Phone Unavailable Care Team Providers Care Small Animal Veterinarian Name Role Phone YUE RAMIREZ Unavailable Allergies, Adverse Reactions, Alerts Substance Reaction [...] of Eustachian tube 381.81 Active Assessment Anxiety disorder, unspecified F41.9 Active Problem Other and unspecified noninfectious gastroenteritis and colitis 558.9 Active Assessment Major depression F32.9 Active Problem Candidiasis of skin and nails 112.3 Active Medications Medication Code System Code Instructions Start Date End Date Status Dosage Cymbalta [facility] [address]-69 60 MG Orally Once a day Mar 03, 2015 1 capsule Orphenadrine Citrate ER [facility] [address]-87 100 MG Orally 2 times a day October 12, 2014 1 tablet Gentamicin Sulfate [facility] [address]-76 0.3 % Ophthalmic Mar 02, 2015 2 drop into affected eye every 2 hours today then qid Ativan [facility] [address]-64 1 MG 2 times a day Jul 11, 2014 0.5-1 tablet by Oral route 2 times per day PRN Must last 30 days-take only for severe anxiety Trazodone HCl [facility] [address]-60 100 MG Orally Once a day Mar 03, 2015 1 tablet at bedtime Flonase [facility] [address]-99 50 mcg/actuation 2 spray(s) intranasally once a day August 03, 2013 2 sprays by Nasal route 1 time per day Robaxin-750 [facility] [address]-56 750 MG Orally 3 times a day as needed for pain November 09, 2014 1 tablet Pepcid [facility] [address]-89 20 MG Orally Once a day Dec 26, 2014 1 tablet at bedtime Nexium [facility] [address]-36 40 MG Jun 27, 2014 1 capsule by Oral route 1 time per day Lyrica [facility] [address]-[address] Quintero to sign for [place] Jul 11, 2014 1 capsule by Oral route 2 times per day for fibromyalgia (729.1) or idioapathic neuropathy (356.9) Procedures Procedure Coding System Code Date Office Visit, Est Pt., Level 4 CPT-4 14967 Mar 03, 2015 Vital Signs Date/Time: Mar 03, 2015 Temperature 97.0 F Weight 221.5 lbs Height 67 in BMI 34.69 Index Blood Pressure Diastolic 72 mmHg Blood Pressure Systolic 124 mmHg Cardiac Monitoring Heart Rate 80 bpm Results No Known Results Summary Purpose eClinicalWorks Submission
--- OUTSIDE RECORDS SUMMARY | 2017-04-15 09:13 | XMS REPORT ---
Author Author FADIA LAURA Organization [employer] Address Unknown Phone Unavailable Care Team Providers Care Plant Supervisor Name Role Phone FADIA LAURA CP Unavailable [...] Instructions Start Date End Date Status Dosage Lyrica [facility] [address]-24 200 MG Orally 2 times a day Jul 11, 2014 1 capsule by Oral route 2 times per day for fibromyalgia (729.1) or idioapathic neuropathy (356.9) Results No Known Results Summary Purpose eClinicalWorks Submission
--- OUTSIDE RECORDS SUMMARY | 2017-04-15 09:13 | XMS REPORT ---
Author Author FADIA LAURA [facility] Address [address] [place] [address] Care Team Providers Care Saddle Mechanic Name Role Phone FADIA LAURA Unavailable PROBLEMS Type Condition ICD9-CM Code [id number] Code Onset Dates Condition Status SNOMED Code Problem Seasonal allergic rhinitis due to pollen J30.1 Active 75452523 Problem Lumbago with sciatica, unspecified side M54.40 Active 58027350 Problem Other headache syndrome G44.89 Active 969448782 Problem Tonsillar calculus J35.8 Active 5168075 Problem Idiopathic neuropathy G60.9 Active 70893055 Problem Irritable bowel syndrome with diarrhea K58.0 Active 622065054 Problem Encounter for dental examination Z01.20 Active 992365309 Problem Eye exam normal Z01.00 Active 704902523 Problem Right arm numbness R20.2 Active 947920787 Problem Post concussion syndrome F07.81 Active 89443229 Problem Acute non intractable tension-type headache G44.209 Active 662638797 Problem Right carpal tunnel syndrome G56.01 Active 040049820635271 Problem GERD (gastroesophageal reflux disease) K21.9 Active 472326702 Problem Anxiety F41.9 Active 50231378 Problem Fibromyalgia M79.7 Active 68856334 Problem Allergic rhinitis J30.9 Active 02211625 Problem Generalized anxiety disorder F41.1 Active 27099407 Problem Panic disorder [episodic paroxysmal anxiety] without agoraphobia F41.0 Active 333742734 Problem Scoliosis, unspecified scoliosis type, unspecified spinal region M41.9 Active 197752581 Problem Major depressive disorder, recurrent, moderate F33.1 Active 19039436 Problem Hypersomnia G47.10 Active 31930011 Problem Intractable migraine with aura without status migrainosus G43.119 Active 891691526 Problem Migraine without aura and without status migrainosus, not intractable G43.009 Active 301528871 ALLERGIES No Information SOCIAL HISTORY Never Assessed [...] 1994 Surgical History hysterectomy for fibroids at [facility] by [facility] 06/2020 Surgical History cholecystectomy 2005 Surgical History Labrum repair 01/30/2016 Hospitalization History surgeries Hospitalization History [facility] for bruised ribs/post fall 12/09/15
--- OUTSIDE RECORDS SUMMARY | 2017-04-15 09:13 | XMS REPORT ---
Author Author CAROLINA LAURA [facility] eClinicalWorks Address Unknown Phone Unavailable Care Team Providers Care Pearl Restorer Name Role Phone CAROLINA LAURA CP Unavailable Allergies, Adverse Reactions, Alerts Substance [...] noninfectious gastroenteritis and colitis 558.9 Active Assessment Pain, eye, right H57.11 Active Problem Candidiasis of skin and nails 112.3 Active Medications Medication Code System Code Instructions Start Date End Date Status Dosage Robaxin-[address] [facility] [address]-99 750 MG Orally 3 times a day as needed for pain November 09, 2014 1 tablet Orphenadrine Citrate ER [facility] [address]-13 100 MG Orally 2 times a day October 12, [address] [facility] [address]-67 20 MG Orally Once a day Dec 26, 2014 1 tablet at bedtime Lyrica [facility] [address]-[address] Quintero to sign for [place] Jul 11, 2014 1 capsule by Oral route 2 times per day for fibromyalgia (729.1) or idioapathic neuropathy (356.9) Flonase [facility] [address]-73 50 mcg/actuation 2 spray(s) intranasally once a day August 03, 2013 2 sprays by Nasal route 1 time per day Ativan [facility] [address]-33 1 MG 2 times a day Jul 11, 2014 0.5-1 tablet by Oral route 2 times per day PRN Must last 30 days-take only for severe anxiety BuPROPion HCl (SR) [facility] [address]-67 200 MG Orally 2 times a day 1 tablet Gentamicin Sulfate [facility] [address]-73 0.3 % Ophthalmic Mar 02, 2015 2 drop into affected eye every 2 hours today then qid Nexium [facility] [address]-19 40 MG Jun 27, 2014 1 capsule by Oral route 1 time per day Procedures Procedure Coding System Code Date Office Visit, Est Pt., Level 3 CPT-4 30499 Mar 02, 2015 Vital Signs Date/Time: Mar 02, 2015 Temperature 97.0 F Weight 221.5 lbs Height 67 in BMI 34.69 Index Blood Pressure Diastolic 86 mmHg Blood Pressure Systolic 126 mmHg Cardiac Monitoring Heart Rate 72 bpm Results No Known Results Summary Purpose eClinicalWorks Submission
--- OUTSIDE RECORDS SUMMARY | 2017-04-15 09:14 | XMS REPORT ---
Author Author FADIA LAURA Organization eClinicalWorks Address Unknown Phone Unavailable Care Team Providers Care Health Lead Name Role Phone FADIA LAURA CP Unavailable Allergies No Known Allergies Problems Problem Type Condition Code Onset Dates Condition Status Problem Encounter for dental examination Z01.20 Active Assessment Shoulder strain, unspecified laterality, initial encounter S46.919A Active Problem Nonintractable migraine, unspecified migraine type G43.009 Active Problem Anxiety F41.9 Active Problem Scoliosis, unspecified scoliosis type, unspecified spinal region M41.9 Active Problem Fibromyalgia M79.7 Active Problem Idiopathic neuropathy G60.9 Active Problem Allergic rhinitis J30.9 Active Problem GERD (gastroesophageal reflux disease) K21.9 Active Medications No Known Medications Procedures Procedure Coding System Code Date X-RAY EXAM OF SHOULDER CPT-4 90548 November 23, 2015 Results No Known Results Summary Purpose eClinicalWorks Submission
--- OUTSIDE RECORDS SUMMARY | 2017-04-15 09:14 | XMS REPORT ---
Author Author ELISSA RAI [facility] Address [address] [place] [address] Care Team Providers Care Rn Internship Name Role Phone ELISSA RAI Unavailable PROBLEMS Type Condition ICD9-CM Code [id number] Code Onset Dates Condition Status SNOMED Code Problem Seasonal allergic rhinitis due to pollen J30.1 Active 37465218 Problem Lumbago with sciatica, unspecified side M54.40 Active 54011406 Problem Other headache syndrome G44.89 Active 453590364 Problem Tonsillar calculus J35.8 Active 5707674 Problem Idiopathic neuropathy G60.9 Active 71664634 Problem Irritable bowel syndrome with diarrhea K58.0 Active 351588173 Problem Encounter for dental examination Z01.20 Active 366070056 Problem Eye exam normal Z01.00 Active 709542580 Problem Right arm numbness R20.2 Active 891112675 Problem Post concussion syndrome F07.81 Active 26780033 Problem Acute non intractable tension-type headache G44.209 Active 875542566 Problem Right carpal tunnel syndrome G56.01 Active 811783138001453 Problem GERD (gastroesophageal reflux disease) K21.9 Active 538298596 Problem Anxiety F41.9 Active 95770038 Problem Fibromyalgia M79.7 Active 08407310 Problem Allergic rhinitis J30.9 Active 88599172 Problem Generalized anxiety disorder F41.1 Active 67835223 Problem Panic disorder [episodic paroxysmal anxiety] without agoraphobia F41.0 Active 214707292 Problem Scoliosis, unspecified scoliosis type, unspecified spinal region M41.9 Active 457472179 Problem Major depressive disorder, recurrent, moderate F33.1 Active 21980823 Problem Intractable migraine with aura without status migrainosus G43.119 Active 975424857 Problem Migraine without aura and without status migrainosus, not intractable G43.009 Active 969724534 ALLERGIES Substance Reaction Event Type Date Status Tramadol HCl Unknown Drug Allergy September, Active Naproxen rash Drug Allergy September, Active Codeine Sulfate Unknown Drug Allergy September, Active Augmentin rash Drug Allergy September, Active SOCIAL HISTORY Never Assessed PLAN OF CARE VITAL SIGNS Height 67 in 2016-09-25 Weight 243.4 lbs 2016-09-25 Temperature 98.4 degrees Fahrenheit 2016-09-25 Heart Rate 88 bpm 2016-09-25 Respiratory Rate 20 2016-09-25 BMI 38.12 kg/m2 2016-09-25 Blood pressure systolic 122 mmHg 2016-09-25 Blood pressure diastolic 78 mmHg 2016-09-25 MEDICATIONS Medication Instructions Dosage Frequency Start Date End Date Duration Status Cymbalta 60 MG Orally Twice a day 1 capsule 12h Oct, 30 days Active Citalopram Hydrobromide 20 MG Orally Once a day 1 tablet 24h Aug, 30 day(s) Active Indomethacin 50 mg Orally every 8 hours, PRN 1 capsule with food or milk 30 Active PredniSONE 20 mg Orally Once a day 2 tablets 24h September, September, 05 days Active Diflucan 150 MG Orally one time. May repeat in 3 days if symptoms persist. 1 tablet 4 days Active Omeprazole 40 MG TAKE ONE CAPSULE BY MOUTH ONCE DAILY 90 Active Amoxicillin-Pot Clavulanate 875-125 MG Orally every 12 hrs 1 tablet 12h Active HydrOXYzine HCl 25 MG Orally four times a day 1 tablet as needed 6h 30 days Active Ativan 1 MG Orally 1 tablet twice a day 1 tablet as needed Aug, 30 days Active Lyrica 200 MG Orally Twice a day 1 capsule 12h Jul, 28 days Active Orphenadrine Citrate ER 100 MG TAKE ONE TABLET BY MOUTH TWICE DAILY 30 Active Promethazine HCl 25 MG TAKE ONE TABLET BY MOUTH EVERY 6 HOURS NEEDED FOR NAUSEA 7 Active RESULTS No Results PROCEDURES Procedure Date Ordered Result Body Site SOLUMEDROL (UP TO 125 MG) September 25, 2016 THER/PROPH/DIAG INJ, SC/IM September 25, 2016 IMMUNIZATIONS Vaccine Route Administration Date Status SOLUMEDROL (UP TO 125 MG) IM Intramuscular September 25, 2016 Administered MEDICAL (GENERAL) HISTORY Type Description Date Medical History gastroesophageal reflux disease (GERD) Medical History scoliosis Medical History depression Medical History HPV Medical History herpetic lesion of vulva Surgical History tubal ligation 2002 Surgical History tonsillectomy and adenoidectomy 1994 Surgical History hysterectomy for fibroids at [facility] by [facility] 06/2020 Surgical History cholecystectomy 2006 Surgical History Labrum repair 01/30/2016 Hospitalization History surgeries Hospitalization History [facility] for bruised ribs/post fall 12/09/15
--- OUTSIDE RECORDS SUMMARY | 2017-04-15 09:14 | XMS REPORT ---
Author Author YUE Deal Organization [facility] Address Unknown Care Team Providers Care Psychiatric Secretary Name Role Phone YUE Deal Unavailable PROBLEMS Type Condition ICD9-CM Code [id number] Code Onset Dates Condition Status SNOMED Code Problem Seasonal allergic rhinitis due to pollen J30.1 Active 64377801 Problem Lumbago with sciatica, unspecified side M54.40 Active 49378445 Problem Other headache syndrome G44.89 Active 507361849 Problem Tonsillar calculus J35.8 Active 8495487 Problem Idiopathic neuropathy G60.9 Active 43484848 Problem Irritable bowel syndrome with diarrhea K58.0 Active 714932410 Problem Encounter for dental examination Z01.20 Active 575216956 Problem Eye exam normal Z01.00 Active 112205344 Problem Right arm numbness R20.2 Active 225134191 Problem Post concussion syndrome F07.81 Active 82337894 Problem Acute non intractable tension-type headache G44.209 Active 591945021 Problem Right carpal tunnel syndrome G56.01 Active 361465472502271 Problem GERD (gastroesophageal reflux disease) K21.9 Active 336980894 Problem Anxiety F41.9 Active 84971660 Problem Fibromyalgia M79.7 Active 64027624 Problem Allergic rhinitis J30.9 Active 22989733 Problem Generalized anxiety disorder F41.1 Active 47853130 Problem Panic disorder [episodic paroxysmal anxiety] without agoraphobia F41.0 Active 068596948 Problem Scoliosis, unspecified scoliosis type, unspecified spinal region M41.9 Active 351801276 Problem Major depressive disorder, recurrent, moderate F33.1 Active 08453091 Problem Hypersomnia G47.10 Active 84994797 Problem Intractable migraine with aura without status migrainosus G43.119 Active 167175745 Problem Migraine without aura and without status migrainosus, not intractable G43.009 Active 518572190 ALLERGIES No Information SOCIAL HISTORY Never Assessed PLAN OF CARE VITAL SIGNS MEDICATIONS Medication Instructions Dosage Frequency Start Date End Date Duration Status Ativan 1 MG Orally Once a day 1 tablet as needed 24h Aug, 30 days Active RESULTS No Results PROCEDURES No Known procedures IMMUNIZATIONS No Known Immunizations MEDICAL (GENERAL) HISTORY Type Description Date Medical History gastroesophageal reflux disease (GERD) Medical History scoliosis Medical History depression Medical History HPV Medical History herpetic lesion of vulva Surgical History tubal ligation 2002 Surgical History tonsillectomy and adenoidectomy 1994 Surgical History hysterectomy for fibroids at [facility] by [facility] 06/2020 Surgical History cholecystectomy 2005 Surgical History Labrum repair 01/30/2016 Hospitalization History surgeries Hospitalization History [facility] for bruised ribs/post fall 12/09/15
--- OUTSIDE RECORDS SUMMARY | 2017-04-15 09:14 | XMS REPORT ---
Author Author FADIA LAURA Organization eClinicalWorks Address Unknown Phone Unavailable Care Team Providers Care Archival Studies Professor Name Role Phone FADIA LAURA CP Unavailable [...]
--- OUTSIDE RECORDS SUMMARY | 2017-04-15 09:14 | XMS REPORT ---
Author Author FADIA LAURA [facility] Address [address] [place] [address] Care Team Providers Care Bindery Manager Name Role Phone FADIA LAURA Unavailable PROBLEMS Type Condition ICD9-CM Code XIK29-BO Code Onset Dates Condition Status SNOMED Code Problem Seasonal allergic rhinitis due to pollen J30.1 Active 41793250 Problem Lumbago with sciatica, unspecified side M54.40 Active 60735693 Problem Other headache syndrome G44.89 Active 183870604 Problem Tonsillar calculus J35.8 Active 1075521 Problem Idiopathic neuropathy G60.9 Active 58910479 Problem Irritable bowel syndrome with diarrhea K58.0 Active 689539670 Problem Encounter for dental examination Z01.20 Active 374444375 Problem Eye exam normal Z01.00 Active 812962994 Problem Right arm numbness R20.2 Active 996126023 Problem Post concussion syndrome F07.81 Active 25119727 Problem Acute non intractable tension-type headache G44.209 Active 136239237 Problem Right carpal tunnel syndrome G56.01 Active 553630549386115 Problem GERD (gastroesophageal reflux disease) K21.9 Active 202571977 Problem Anxiety F41.9 Active 90618479 Problem Fibromyalgia M79.7 Active 67548277 Problem Allergic rhinitis J30.9 Active 53091626 Problem Generalized anxiety disorder F41.1 Active 42328020 Problem Panic disorder [episodic paroxysmal anxiety] without agoraphobia F41.0 Active 521908421 Problem Scoliosis, unspecified scoliosis type, unspecified spinal region M41.9 Active 718897398 Problem Major depressive disorder, recurrent, moderate F33.1 Active 47102029 Problem Hypersomnia G47.10 Active 33825966 Problem Intractable migraine with aura without status migrainosus G43.119 Active 785668905 Problem Migraine without aura and without status migrainosus, not intractable G43.009 Active 684623003 ALLERGIES No Information SOCIAL HISTORY Never Assessed [...] 1994 Surgical History hysterectomy for fibroids at [facility] by [facility] 06/2020 Surgical History cholecystectomy 2005 Surgical History Labrum repair 01/30/2016 Hospitalization History surgeries Hospitalization History [facility] for bruised ribs/post fall 12/09/15
--- OUTSIDE RECORDS SUMMARY | 2017-04-15 09:15 | XMS REPORT ---
Author GOLD Rubio [facility] eClinicalWorks Address Unknown Phone Unavailable Care Team Providers Care Radiology Transporter Name Role Phone GOLD NUNO CP Unavailable Allergies, Adverse Reactions, Alerts Substance [...] noninfectious gastroenteritis and colitis 558.9 Active Assessment Sore throat J02.9 Active Problem Candidiasis of skin and nails 112.3 Active Medications Medication Code System Code Instructions Start Date End Date Status Dosage Robaxin-[address] [facility] [address]-02 750 MG Orally 3 times a day as needed for pain November 09, [address] [facility] [address]-19 500 MG Orally 2 times a day Mar 23, 2015 Apr 02, 2015 2 capsules one time Tessalon Perles [facility] [address]-43 100 MG Orally Three times a day Mar 23, 2015 Apr 02, 2015 1 capsule as needed Trazodone HCl [facility] [address]-05 100 MG Orally Once a day Mar 03, 2015 1 tablet at bedtime Orphenadrine Citrate ER [facility] 78163317389 100 MG Orally 2 times a day [address] [facility] [address]-[address] Quintero to sign for [place] Jul 11, 2014 1 capsule by Oral route 2 times per day for fibromyalgia (729.1) or idioapathic neuropathy (356.9) Ventolin HFA [facility] [address]-98 108 (90 Base) MCG/ACT Inhalation 4 times a day Feb 13, 2015 2 puffs as needed Ativan [facility] [address]-57 1 MG 2 times a day Jul 11, 2014 0.5-1 tablet by Oral route 2 times per day PRN Must last 30 days-take only for severe anxiety Cymbalta [facility] [address]-67 60 MG Orally Once a day Mar 03, 2015 1 capsule Gentamicin Sulfate [facility] [address]-92 0.3 % Ophthalmic Mar 02, 2015 2 drop into affected eye every 2 hours today then qid Flonase [facility] [address]-28 50 mcg/actuation 2 spray(s) intranasally once a day August 03, 2013 2 sprays by Nasal route 1 time per day Nexium [facility] [address]-76 40 MG Jun 27, 2014 1 capsule by Oral route 1 time per day Procedures Procedure Coding System Code Date Office Visit, Est Pt., Level 3 CPT-4 96198 Mar 23, 2015 STREP A ASSAY W/OPTIC CPT-4 61588 Mar 23, 2015 Vital Signs Date/Time: Mar 23, 2015 Temperature 97.9 F Weight 229.2 lbs Height 67 in BMI 35.89 Index Blood Pressure Diastolic 76 mmHg Blood Pressure Systolic 124 mmHg Cardiac Monitoring Heart Rate 88 bpm Results Name Result Date Reference Range Unit Abnormality Flag STREP A (IN HOUSE) Summary Purpose eClinicalWorks Submission
--- OUTSIDE RECORDS SUMMARY | 2017-04-15 09:15 | XMS REPORT ---
Author Author YUE RAMIREZ Organization eClinicalWorks Address Unknown Phone Unavailable Care Team Providers Care Automation Technologist Name Role Phone YUE RAMIREZ CP Unavailable Allergies No Known Allergies Problems [...] Instructions Start Date End Date Status Dosage Ativan [facility] [address]-37 1 MG Orally three times a day Jun 26, 2015 1 tablet as needed Results No Known Results Summary Purpose eClinicalWorks Submission
--- OUTSIDE RECORDS SUMMARY | 2017-04-15 09:15 | XMS REPORT ---
Author Author YUE Deal Organization [facility] Address Unknown Care Team Providers Care Blank Driller Name Role Phone YUE Deal Unavailable PROBLEMS Type Condition ICD9-CM Code MCH15-ON Code Onset Dates Condition Status SNOMED Code Problem Seasonal allergic rhinitis due to pollen J30.1 Active 39326411 Problem Lumbago with sciatica, unspecified side M54.40 Active 77595871 Problem Other headache syndrome G44.89 Active 081439901 Problem Tonsillar calculus J35.8 Active 3010380 Problem Idiopathic neuropathy G60.9 Active 97188786 Problem Irritable bowel syndrome with diarrhea K58.0 Active 198116165 Problem Encounter for dental examination Z01.20 Active 716683885 Problem Eye exam normal Z01.00 Active 536758424 Problem Right arm numbness R20.2 Active 366571311 Problem Post concussion syndrome F07.81 Active 56049421 Problem Acute non intractable tension-type headache G44.209 Active 468799862 Problem Right carpal tunnel syndrome G56.01 Active 732627070539069 Problem GERD (gastroesophageal reflux disease) K21.9 Active 465731769 Problem Anxiety F41.9 Active 96517221 Problem Fibromyalgia M79.7 Active 19075031 Problem Allergic rhinitis J30.9 Active 64816169 Problem Generalized anxiety disorder F41.1 Active 49465109 Problem Panic disorder [episodic paroxysmal anxiety] without agoraphobia F41.0 Active 389277240 Problem Scoliosis, unspecified scoliosis type, unspecified spinal region M41.9 Active 004537234 Problem Major depressive disorder, recurrent, moderate F33.1 Active 88988443 Problem Intractable migraine with aura without status migrainosus G43.119 Active 761606843 Problem Migraine without aura and without status migrainosus, not intractable G43.009 Active 639999112 ALLERGIES Substance Reaction Event Type Date Status Tramadol HCl Unknown Drug Allergy Aug, Active Naproxen rash Drug Allergy Aug, Active Codeine Sulfate Unknown Drug Allergy Aug, Active Augmentin rash Drug Allergy Aug, Active SOCIAL HISTORY Never Assessed PLAN OF CARE Activity Details Follow Up 6 Weeks Reason: VITAL SIGNS Height 67 in 2016-09-11 Weight 240.1 lbs 2016-09-11 Heart Rate 84 bpm 2016-09-11 Respiratory Rate 20 2016-09-11 BMI 37.60 kg/m2 2016-09-11 Blood pressure systolic 117 mmHg 2016-09-11 Blood pressure diastolic 78 mmHg 2016-09-11 MEDICATIONS Medication Instructions Dosage Frequency Start Date End Date Duration Status Indomethacin 50 mg Orally every 8 hours, PRN 1 capsule with food or milk Apr, 30 Active Orphenadrine Citrate ER 100 MG TAKE ONE TABLET BY MOUTH TWICE DAILY 30 Active HydrOXYzine HCl 25 MG Orally four times a day 1 tablet as needed 6h 30 days Active Lyrica 200 MG Orally Twice a day 1 capsule 12h Jul, 28 days Active Omeprazole 40 MG TAKE ONE CAPSULE BY MOUTH ONCE DAILY 90 Active Cymbalta 60 MG Orally Twice a day 1 capsule 12h Oct, 30 days Active Ativan 1 MG Orally 1 tablet twice a day 1 tablet as needed Aug, 30 days Active Citalopram Hydrobromide 20 MG Orally Once a day 1 tablet 24h Aug, 30 day(s) Active Promethazine HCl 25 MG TAKE ONE TABLET BY MOUTH EVERY 6 HOURS NEEDED FOR NAUSEA 7 Active Amoxicillin-Pot Clavulanate 875-125 MG Orally every 12 hrs 1 tablet 12h Active RESULTS Name Result Date Reference Range URINE DRUG SCREEN (IN HOUSE) 2016-09-11 Lot # [id number] Exp date Control + COCAINE Negative AMPH Negative MTD Negative THC Positive OPIATE Negative BENZO Positive PCP Negative BAR Negative OXY Negative MAMP Negative TCA BUP Negative MDMA Negative PROCEDURES Procedure Date Ordered Result Body [facility], 2016 IMMUNIZATIONS No Known Immunizations MEDICAL (GENERAL) HISTORY Type Description Date Medical History gastroesophageal reflux disease (GERD) Medical History scoliosis Medical History depression Medical History HPV Medical History herpetic lesion of vulva Surgical History tubal ligation 2002 Surgical History tonsillectomy and adenoidectomy 1994 Surgical History hysterectomy for fibroids at [facility] by [facility] 06/2020 Surgical History cholecystectomy 2006 Surgical History Labrum repair 01/30/2016 Hospitalization History surgeries Hospitalization History [facility] for bruised ribs/post fall 12/09/15
--- OUTSIDE RECORDS SUMMARY | 2017-04-15 09:15 | XMS REPORT ---
Author Author FADIA LAURA Organization eClinicalWorks Address Unknown Phone Unavailable Care Team Providers Care Commercial Credit Head Name Role Phone FADIA LAURA CP Unavailable [...] Start Date End Date Status Dosage Lyrica [facility] [address]-17 200 MG Orally 2 times a day Jul 11, 2014 1 capsule by Oral route 2 times per day for fibromyalgia (729.1) or idioapathic neuropathy (356.9) Results No Known Results Summary Purpose eClinicalWorks Submission
--- OUTSIDE RECORDS SUMMARY | 2017-04-15 09:15 | XMS REPORT ---
Author Author FADIA LAURA [facility] eClinicalWorks Address Unknown Phone Unavailable Care Team Providers Care Explosives Worker Name Role Phone FADIA LAURA CP Unavailable Allergies, Adverse Reactions, Alerts Substance Reaction Event Type Tramadol HCl Info Not Available Drug Allergy Naproxen rash Drug Allergy Codeine Sulfate Info Not Available Drug Allergy Augmentin rash Drug Allergy Problems Problem Type Condition Code Onset Dates Condition Status Problem Fibromyalgia M79.7 Active Problem Allergic rhinitis J30.9 Active Problem GERD (gastroesophageal reflux disease) K21.9 Active Problem Major depressive disorder, recurrent, moderate F33.1 Active Problem Panic disorder [episodic paroxysmal anxiety] without agoraphobia F41.0 Active Problem Generalized anxiety disorder F41.1 Active Problem Nonintractable migraine, unspecified migraine type G43.009 Active Problem Anxiety F41.9 Active Problem Intractable migraine with aura without status migrainosus G43.119 Active Problem Scoliosis, unspecified scoliosis type, unspecified spinal region M41.9 Active Assessment Post concussion syndrome F07.81 Active Problem Eye exam normal Z01.00 Active Problem Encounter for dental examination Z01.20 Active Problem Idiopathic neuropathy G60.9 Active Medications Medication Code System Code Instructions Start Date End Date Status Dosage Cymbalta [facility] [address]-39 60 MG Orally Twice a day November 15, 2015 1 capsule Ativan [facility] [address]-35 1 MG Orally three times a day Jun 26, 2015 1 tablet as needed Orphenadrine Citrate ER [facility] [address]-71 100 MG Orally twice a day September 1 tablet Promethazine HCl [facility] [address]-28 25 MG TAKE ONE TABLET BY MOUTH EVERY 6 HOURS NEEDED FOR NAUSEA Ibuprofen [facility] [address]-43 800 MG Orally Three times a day 1 tablet HydrOXYzine HCl [facility] [address]-60 25 MG Orally 4 times a day October 11, 2015 1 tablet as needed Maxalt [facility] [address]-65 10 mg Orally Once a day December 11, 2015 1 tablet as needed May repeat in 2 hours Lyrica [facility] [address]-25 200 MG Orally Twice a day August 17, 2015 1 capsule Flonase Allergy Relief [facility] [address]-11 50 MCG/ACT Nasally Once a day September 18, 2015 2 sprays in each nostril Omeprazole [facility] [address]-16 40 MG TAKE ONE CAPSULE BY MOUTH ONCE DAILY Atenolol [facility] [address]-77 25 MG Orally Once a day December 12, 2015 1 tablet Trazodone HCl [facility] [address]-24 150 MG Orally Once a day Jan 10, 2016 1 tablet at bedtime as needed Citalopram Hydrobromide [facility] [address]-47 10 MG Orally Once a day Jan 10, 2016 1 tablet Procedures Procedure Coding System Code Date Office Visit, Est Pt., Level 3 CPT-4 12486 Feb 06, 2016 Vital Signs Date/Time: Feb 06, 2016 Cardiac Monitoring Heart Rate 76 bpm Weight 228.6 lbs Height 67 in BMI 35.80 Index Blood Pressure Diastolic 82 mmHg Blood Pressure Systolic 118 mmHg Results No Known Results Summary Purpose eClinicalWorks Submission
--- OUTSIDE RECORDS SUMMARY | 2017-04-15 09:15 | XMS REPORT ---
Author Author CARMENCITA REID [facility] eClinicalWorks Address Unknown Phone Unavailable Care Team Providers Care Web Communications Specialist Name Role Phone CARMENCITA REID CP Unavailable Allergies No Known Allergies Problems Problem Type Condition Code Onset Dates Condition Status Problem Anxiety F41.9 Active Problem Scoliosis, unspecified scoliosis type, unspecified spinal region M41.9 Active Problem Nonintractable migraine, unspecified migraine type G43.009 Active Problem Other headache syndrome G44.89 Active Problem Seasonal allergic rhinitis due to pollen J30.1 Active Problem Tonsillar exudate J35.8 Active Problem Panic disorder [episodic paroxysmal anxiety] without agoraphobia F41.0 Active Problem Intractable migraine with aura without status migrainosus G43.119 Active Problem Generalized anxiety disorder F41.1 Active Problem Major depressive disorder, recurrent, moderate F33.1 Active Assessment Major depressive disorder, recurrent, moderate F33.1 Active Assessment Generalized anxiety disorder F41.1 Active Assessment Panic disorder [episodic paroxysmal anxiety] without agoraphobia F41.0 Active Problem Idiopathic neuropathy G60.9 Active Problem Fibromyalgia M79.7 Active Problem Eye exam normal Z01.00 Active Problem GERD (gastroesophageal reflux disease) K21.9 Active Problem Encounter for dental examination Z01.20 Active Problem Allergic rhinitis J30.9 Active Medications No Known Medications Procedures Procedure Coding System Code Date Psychotherapy, patient &/family, 30 minutes, established patient CPT-4 26531 Apr 01, 2016 Results No Known Results Summary Purpose eClinicalWorks Submission
--- OUTSIDE RECORDS SUMMARY | 2017-04-15 09:15 | XMS REPORT ---
Author Author FADIA LAURA Organization eClinicalWorks Address Unknown Phone Unavailable Care Team Providers Care Finishing Trimmer Name Role Phone FADIA LAURA CP Unavailable Allergies No Known Allergies Problems Problem Type Condition ICD-9 Code Onset Dates Condition Status Problem Migraine [...] Start Date End Date Status Dosage Nexium [facility] [address]-64 40 MG Jun 27, 2014 1 capsule by Oral route 1 time per day BuPROPion HCl (SR) [facility] [address]-00 200 MG TAKE ONE TABLET BY MOUTH TWICE DAILY Flonase [facility] [address]-80 50 mcg/actuation 2 spray(s) intranasally once a day August 03, 2013 2 sprays by Nasal route 1 time per day Ativan [facility] [address]-05 1 MG Jul 11, 2014 0.5-1 tablet by Oral route 2 times per day PRN Must last 30 days-take only for severe anxiety Results No Known Results Summary Purpose eClinicalWorks Submission
--- OUTSIDE RECORDS SUMMARY | 2017-04-15 09:16 | XMS REPORT ---
Author Author FADIA LAURA [facility] eClinicalWorks Address Unknown Phone Unavailable Care Team Providers Care Line Puller Name Role Phone FADIA LAURA CP Unavailable [...] Dysfunction of Eustachian tube 381.81 Active Assessment Fibromyalgia M79.7 Active Problem Other and unspecified noninfectious gastroenteritis and colitis 558.9 Active Assessment Ankle fracture, right S82.891A Active Problem Candidiasis of skin and nails 112.3 Active Medications Medication Code System Code Instructions Start Date End Date Status Dosage Flonase [facility] [address]-59 50 mcg/actuation 2 spray(s) intranasally once a day August 03, 2013 2 sprays by Nasal route 1 time per day Cymbalta [facility] [address]-91 60 MG Orally Once a day Mar 03, 2015 1 capsule Hydrocodone-Acetaminophen [facility] [address]-30 10-325 MG Orally every 6 hrs Mar 28, 2015 1 tablet as needed Orphenadrine Citrate ER [facility] 24495826526 100 MG Orally 2 times a day 1 tablet Hydrocodone-Acetaminophen [facility] [address]-57 5-325 MG Orally every 6 hrs 1 tablet as needed Ativan [facility] [address]-52 1 MG 2 times a day Jul 11, 2014 0.5-1 tablet by Oral route 2 times per day PRN Must last 30 days-take only for severe anxiety Nexium [facility] [address]-31 40 MG Jun 27, 2014 1 capsule by Oral route 1 time per day Lyrica [facility] [address]-22 200 MG Orally 2 times a day Jul 11, 2014 1 capsule by Oral route 2 times per day for fibromyalgia (729.1) or idioapathic neuropathy (356.9) Ventolin HFA [facility] [address]-59 108 (90 Base) MCG/ACT Inhalation 4 times a day Feb 13, 2015 2 puffs as needed Trazodone HCl [facility] [address]-81 100 MG Orally Once a day Mar 03, 2015 1 tablet at bedtime Robaxin-750 [facility] [address]-55 750 MG Orally 3 times a day as needed for pain November 09, 2014 1 tablet Procedures Procedure Coding System Code Date Office Visit, Est Pt., Level 3 CPT-4 87223 Mar 28, 2015 Vital Signs Date/Time: Mar 28, 2015 Temperature 98.9 F Weight 230 lbs Height 67 in BMI 36.02 Index Blood Pressure Diastolic 80 mmHg Blood Pressure Systolic 138 mmHg Cardiac Monitoring Heart Rate 90 bpm Results No Known Results Summary Purpose eClinicalWorks Submission
--- OUTSIDE RECORDS SUMMARY | 2017-04-15 09:16 | XMS REPORT ---
Author Author FADIA LAURA Organization eClinicalWorks Address Unknown Phone Unavailable Care Team Providers Care Health Insurance Adjuster Name Role Phone FADIA LAURA CP Unavailable [...] Start Date End Date Status Dosage Lyrica [facility] [address]-13 200 MG Orally 2 times a day Jul 11, 2014 1 capsule by Oral route 2 times per day for fibromyalgia (729.1) or idioapathic neuropathy (356.9) Results No Known Results Summary Purpose eClinicalWorks Submission
--- OUTSIDE RECORDS SUMMARY | 2017-04-15 09:16 | XMS REPORT ---
Author Author YUE RAMIREZ [facility] eClinicalWorks Address Unknown Phone Unavailable Care Team Providers Care Driveway Attendant Name Role Phone YUE RAMIREZ CP Unavailable Allergies No Known Allergies Problems Problem Type Condition Code Onset Dates Condition Status Problem Explosive personality disorder 301.3 Active Problem Routine general medical examination at health care facility V70.0 Active Problem Anxiety state, unspecified 300.00 Active Problem Idiopathic neuropathy G60.9 Active Problem Encounter for dental examination Z01.20 Active Problem Fibromyalgia M79.7 Active Problem Other specified counseling V65.49 Active Problem Scoliosis (and kyphoscoliosis), idiopathic 737.30 Active Problem Acute sinusitis, unspecified 461.9 Active Problem Leukorrhea, not specified as infective 623.5 Active Assessment Major depression F32.9 Active Problem Abdominal pain, left lower quadrant 789.04 Active Assessment Anxiety disorder, unspecified F41.9 Active Problem Candidiasis of skin and nails 112.3 Active Problem Migraine with aura, without mention of intractable migraine without mention of status migrainosus 346.00 Active Problem Dysfunction of Eustachian tube 381.81 Active Problem Abdominal pain, right lower quadrant 789.03 Active Problem Other and unspecified noninfectious gastroenteritis and colitis 558.9 Active Problem Sciatica 724.3 Active Medications Medication Code System Code Instructions Start Date End Date Status Dosage Flonase NDC 0 50 mcg/actuation 2 spray(s) intranasally once a day July 2 sprays by Nasal route 1 time per day Hydrocodone-Acetaminophen [facility] [address]-53 10-325 MG Orally every 6 hrs Mar 28, 2015 1 tablet as needed Cymbalta [facility] [address]-70 30 MG Orally Once a day August 28, 2015 1 capsule Robaxin-750 [facility] [address]-39 750 MG Orally 3 times a day as needed for pain November 09, 2014 1 tablet Ativan [facility] [address]-31 1 MG Orally three times a day Jun 26, 2015 1 tablet as needed Orphenadrine Citrate [facility] [address]-79 100 MG Orally 2 times a day 1 tablet Cymbalta [facility] [address]-39 60 MG Orally Once a day Mar 03, 2015 1 capsule Nexium [facility] [address]-43 40 MG Jun 27, 2014 1 capsule by Oral route 1 time per day Promethazine HCl [facility] 67705523923 25 MG Orally every 6 hrs 1 tablet as needed for nausea Acetaminophen-Codeine [facility] [address]-20 300-30 MG Orally every 6 hrs July 26, 2015 1 tablet as needed Lyrica [facility] [address]-30 200 MG Orally Twice a day August 17, 2015 1 capsule Procedures Procedure Coding System Code Date Office Visit, Est Pt., Level 3 CPT-4 75209 August 28, 2015 Vital Signs Date/Time: August 28, 2015 Cardiac Monitoring Heart Rate 72 bpm Weight 220.6 lbs Height 67 in BMI 34.55 Index Blood Pressure Diastolic 82 mmHg Blood Pressure Systolic 124 mmHg Results No Known Results Summary Purpose eClinicalWorks Submission
--- OUTSIDE RECORDS SUMMARY | 2017-04-15 09:16 | XMS REPORT ---
Author Author CARMENCITA REID [facility] eClinicalWorks Address Unknown Phone Unavailable Care Team Providers Care Fiberglass Boat Assembly Supervisor Name Role Phone CARMENCITA REID CP Unavailable [...] type, unspecified spinal region M41.9 Active Assessment Generalized anxiety disorder F41.1 Active Problem Eye exam normal Z01.00 Active Assessment Panic disorder [episodic paroxysmal anxiety] without agoraphobia F41.0 Active Problem Encounter for dental examination Z01.20 Active Assessment Major depressive disorder, recurrent, moderate F33.1 Active Problem Idiopathic neuropathy G60.9 Active Medications No Known Medications Procedures Procedure Coding System Code Date Psychotherapy, patient &/family, 45 minutes, established patient CPT-4 42324 Mar 04, 2016 Results No Known Results Summary Purpose eClinicalWorks Submission
--- OUTSIDE RECORDS SUMMARY | 2017-04-15 09:16 | XMS REPORT ---
Author Author YUE RAMIREZ Organization eClinicalWorks Address Unknown Phone Unavailable Care Team Providers Care Satellite Communications Operator Name Role Phone YUE RAMIREZ CP Unavailable [...] Start Date End Date Status Dosage Cymbalta [facility] [address]-64 60 MG Orally Once a day Mar 03, 2015 1 capsule Results No Known Results Summary Purpose eClinicalWorks Submission
--- OUTSIDE RECORDS SUMMARY | 2017-04-15 09:16 | XMS REPORT ---
Author Author CAROLINA LAURA Organization eClinicalWorks Address Unknown Phone Unavailable Care Team Providers Care Operator Weapon Locating Radar Name Role Phone CAROLINA LAURA CP Unavailable Allergies No Known Allergies [...] Start Date End Date Status Dosage Lyrica [facility] [address]-[address] Quintero to sign for [place] Jul 11, 2014 1 capsule by Oral route 2 times per day for fibromyalgia (729.1) or idioapathic neuropathy (356.9) Results No Known Results Summary Purpose eClinicalWorks Submission
--- OUTSIDE RECORDS SUMMARY | 2017-04-15 09:16 | XMS REPORT ---
Author Author YUE HANNAH [facility] eClinicalWorks Address Unknown Phone Unavailable Care Team Providers Care Wet Inspector Optical Glass Name Role Phone YUE HANNAH Unavailable Allergies, Adverse Reactions, Alerts Substance Reaction Event Type Tramadol HCl Info Not Available Drug Allergy Naproxen rash Drug Allergy Codeine Sulfate Info Not Available Drug Allergy Augmentin rash Drug Allergy Problems Problem Type Condition Code Onset Dates Condition Status Problem Encounter for dental examination Z01.20 Active Assessment Dog bite, initial encounter W54.0XXA Active Problem Nonintractable migraine, unspecified migraine type G43.009 Active Problem Anxiety F41.9 Active Problem Scoliosis, unspecified scoliosis type, unspecified spinal region M41.9 Active Problem Fibromyalgia M79.7 Active Problem Idiopathic neuropathy G60.9 Active Problem Allergic rhinitis J30.9 Active Problem GERD (gastroesophageal reflux disease) K21.9 Active Medications Medication Code System Code Instructions Start Date End Date Status Dosage Doxycycline Hyclate [facility] [address]-82 100 MG Orally every 12 hrs December 06, 2015 December 16, 2015 1 capsule HydrOXYzine HCl [facility] [address]-68 25 MG Orally 4 times a day October 11, 2015 1 tablet as needed Flonase Allergy Relief [facility] [address]-13 50 MCG/ACT Nasally Once a day September 18, 2015 2 sprays in each nostril Lyrica [facility] [address]-85 200 MG Orally Twice a day August 17, 2015 1 capsule Imitrex [facility] [address]-21 100 MG Orally Once a day at onset of headache and may repeat in 2 hours November 14, 2015 1 tablet as needed for migraine Trazodone HCl [facility] [address]-32 100 MG Orally Once a day November 15, 2015 1 tablet at bedtime Cymbalta [facility] [address]-15 60 MG Orally Twice a day November 15, 2015 1 capsule Excedrin Migraine [facility] [address]-37 250-250-65 MG Orally every 6 hrs 2 tablets as needed Omeprazole [facility] [address]-60 40 mg Orally Once a day September 18, 2015 1 capsule Hydrocodone-Acetaminophen [facility] [address]-10 10-325 MG Orally every 6 hrs Mar 28, 2015 1 tablet as needed for severe pain Orphenadrine Citrate ER [facility] [address]-62 100 MG Orally twice a day September 1 tablet Ativan [facility] [address]-59 1 MG Orally three times a day Jun 26, 2015 1 tablet as needed Procedures Procedure Coding System Code Date Office Visit, Est Pt., Level 3 CPT-4 81154 December 06, 2015 Vital Signs Date/Time: December 06, 2015 Cardiac Monitoring Heart Rate 78 bpm Weight 224.2 lbs Height 67 in Blood Pressure Diastolic 70 mmHg Blood Pressure Systolic 104 mmHg Results No Known Results Summary Purpose eClinicalWorks Submission
--- OUTSIDE RECORDS SUMMARY | 2017-04-15 09:16 | XMS REPORT ---
Author Author FADIA LAURA Organization eClinicalWorks Address Unknown Phone Unavailable Care Team Providers Care Mixer Runner Name Role Phone FADIA LAURA CP Unavailable [...] G60.9 Active Problem Anxiety F41.9 Active Medications Medication Code System Code Instructions Start Date End Date Status Dosage Lyrica [facility] [address]-07 200 MG Orally Twice a day August 17, 2015 1 capsule Results No Known Results Summary Purpose eClinicalWorks Submission
--- OUTSIDE RECORDS SUMMARY | 2017-04-15 09:17 | XMS REPORT ---
Author Author FADIA LAURA [facility] eClinicalWorks Address Unknown Phone Unavailable Care Team Providers Care Rn Advice Name Role Phone FDAIA LAURA CP Unavailable Allergies No Known Allergies [...] Start Date End Date Status Dosage Hydrocodone-Acetaminophen [facility] [address]-30 10-325 MG Orally every 6 hrs Mar 28, 2015 Jan 19, 2016 1 tablet as needed Results No Known Results Summary Purpose eClinicalWorks Submission
--- OUTSIDE RECORDS SUMMARY | 2017-04-15 09:17 | XMS REPORT ---
Author KIRTI Mclaughlin [facility] eClinicalWorks Address Unknown Phone Unavailable Care Team Providers Care Hammer Operator Name Role Phone KIRTI BECKFORD Unavailable Allergies, Adverse Reactions, Alerts Substance Reaction Event Type Tramadol HCl Info Not Available Drug Allergy Naproxen rash Drug Allergy Codeine Sulfate Info Not Available Drug Allergy Augmentin rash Drug Allergy Problems Problem Type Condition ICD-9 Code Onset [...] noninfectious gastroenteritis and colitis 558.9 Active Assessment Cough 786.2 Active Problem Candidiasis of skin and nails 112.3 Active Medications Medication Code System Code Instructions Start Date End Date Status Dosage Flonase [facility] [address]-47 50 mcg/actuation 2 spray(s) intranasally once a day August 03, 2013 2 sprays by Nasal route 1 time per day Nexium [facility] [address]-61 40 MG Jun 27, 2014 1 capsule by Oral route 1 time per day Robaxin-750 [facility] [address]-33 750 MG Orally 3 times a day as needed for pain November 09, 2014 1 tablet Orphenadrine Citrate ER [facility] [address]-78 100 MG Orally 2 times a day October 12, 2014 1 tablet Doxycycline Hyclate [facility] [address]-52 100 MG Orally Twice a day Jan 25, 2015 Feb 04, 2015 1 capsule BuPROPion HCl (SR) [facility] [address]-61 200 MG TAKE ONE TABLET BY MOUTH TWICE DAILY Lyrica [facility] [address]-69 150 mg Jul 11, 2014 1 capsule by Oral route 2 times per day for fibromyalgia (729.1) or idioapathic neuropathy (356.9) Promethazine HCl [facility] 93306812625 25 MG Orally every 6 hrs 1 tablet as needed for nausea Ativan [facility] [address]-25 1 MG Jul 11, 2014 0.5-1 tablet by Oral route 2 times per day PRN Must last 30 days-take only for severe anxiety PredniSONE [facility] [address]-52 20 MG Orally Once a day Jan 25, 2015Jan 2 tablets with food or milk Procedures Procedure Coding System Code Date MEASURE BLOOD OXYGEN LEVEL CPT-4 25325 Jan 25, 2015 Office Visit, Est Pt., Level 3 CPT-4 06161 Jan 25, 2015 Vital Signs Date/Time: Jan 25, 2015 Temperature 98.4 F Weight 225.1 lbs Height 67 in Oximetry 98 % Blood Pressure Diastolic 74 mmHg Blood Pressure Systolic 122 mmHg Cardiac Monitoring Heart Rate 84 bpm BMI 35.25 Index Results No Known Results Summary Purpose eClinicalWorks Submission
--- OUTSIDE RECORDS SUMMARY | 2017-04-15 09:17 | XMS REPORT ---
Author Author FADIA LAURA [facility] eClinicalWorks Address Unknown Phone Unavailable Care Team Providers Care Benzene Worker Name Role Phone FADIA LAURA CP [...] examination at health care facility V70.0 Active Assessment Depression 311 Active Problem Abdominal pain, left lower quadrant 789.04 Active Problem Dysfunction of Eustachian tube 381.81 Active Assessment Shortness of breath 786.05 Active Problem Other and unspecified noninfectious gastroenteritis and colitis 558.9 Active Assessment Allergic rhinitis 477.9 Active Problem Candidiasis of skin and nails 112.3 Active Medications Medication Code System Code Instructions Start Date End Date Status Dosage Flonase [facility] [address]-86 50 mcg/actuation 2 spray(s) intranasally once a day August 03, 2013 2 sprays by Nasal route 1 time per day ZyrTEC [facility] [address]-50 10 MG Orally Once a day Feb 13, 2015 Jun 13, 2015 1 tablet as needed Robaxin-750 [facility] [address]-84 750 MG Orally 3 times a day as needed for pain November 09, 2014 1 tablet Nexium [facility] [address]-99 40 MG Jun 27, 2014 1 capsule by Oral route 1 time per day Singulair [facility] [address]-91 10 MG Orally Once a day in the PM Feb 13, 2015 1 tablet in the evening Pepcid [facility] [address]-85 20 MG Orally Once a day Dec 26, 2014 1 tablet at bedtime Orphenadrine Citrate ER [facility] [address]-25 100 MG Orally 2 times a day October 12, 2014 1 tablet Claritin [facility] [address]-64 10 MG Orally Once a day Dec 26, 2014 Jun 24, 2015 1 tablet Promethazine HCl [facility] 95575705218 25 MG Orally every 6 hrs 1 tablet as needed for nausea BuPROPion HCl (SR) [facility] [address]-10 75 mg TAKE THREE TABLET BY MOUTH 1 time a day Ventolin HFA [facility] [address]-25 108 (90 Base) MCG/ACT Inhalation 4 times a day Feb 13, 2015 2 puffs as needed Ativan [facility] [address]-90 1 MG Jul 11, 2014 0.5-1 tablet by Oral route 2 times per day PRN Must last 30 days-take only for severe anxiety Lyrica [facility] [address]-27 150 mg Jul 11, 2014 1 capsule by Oral route 2 times per day for fibromyalgia (729.1) or idioapathic neuropathy (356.9) Procedures Procedure Coding System Code Date Office Visit, Est Pt., Level 3 CPT-4 57057 Feb 13, 2015 NEB/MDI RX INITIAL CPT-4 48293 Feb 13, 2015 Vital Signs Date/Time: Feb 13, 2015 Temperature 98.6 F Weight 225 lbs Height 67 in BMI 35.24 Index Blood Pressure Diastolic 90 mmHg Blood Pressure Systolic 140 mmHg Cardiac Monitoring Heart Rate 80 bpm Results Name Result Date Reference Range Unit Abnormality Flag NEBULIZER TREATMENT Summary Purpose eClinicalWorks Submission
--- OUTSIDE RECORDS SUMMARY | 2017-04-15 09:17 | XMS REPORT ---
Author Author FADIA LAURA [facility] eClinicalWorks Address Unknown Phone Unavailable Care Team Providers Care Restaurant Mgr Name Role Phone FADIA LAURA CP Unavailable Allergies No Known Allergies Problems Problem Type Condition Code Onset Dates Condition Status Problem Encounter for dental examination Z01.20 Active Assessment Fibromyalgia M79.7 Active Problem Nonintractable migraine, unspecified migraine type G43.009 Active Problem Anxiety F41.9 Active Problem Scoliosis, unspecified scoliosis type, unspecified spinal region M41.9 Active Problem Fibromyalgia M79.7 Active Problem Idiopathic neuropathy G60.9 Active Problem Allergic rhinitis J30.9 Active Problem GERD (gastroesophageal reflux disease) K21.9 Active Medications Medication Code System Code Instructions Start Date End Date Status Dosage Hydrocodone-Acetaminophen [facility] [address]-43 10-325 MG Orally every 6 hrs Mar 28, 2015 1 tablet as needed for severe pain Results No Known Results Summary Purpose eClinicalWorks Submission
--- OUTSIDE RECORDS SUMMARY | 2017-04-15 09:17 | XMS REPORT ---
Author Author YUE RAMIREZ [facility] Address Unknown Care Team Providers Care Turbine Subassembler Name Role Phone JAMESYUE Unavailable PROBLEMS Type Condition ICD9-CM Code [id number] Code Onset Dates Condition Status SNOMED Code Problem Seasonal allergic rhinitis due to pollen J30.1 Active 95916005 Problem Tonsillar exudate J35.8 Active 203311577 Problem Other headache syndrome G44.89 Active 014014372 Problem Irritable bowel syndrome with diarrhea K58.0 Active 915923841 Problem Fibromyalgia M79.7 Active 28332284 Problem Acute non intractable tension-type headache G44.209 Active 573449917 Problem Idiopathic neuropathy G60.9 Active 34237118 Problem Encounter for dental examination Z01.20 Active 478334137 Problem Post concussion syndrome F07.81 Active 50891787 Problem Lumbago with sciatica, unspecified side M54.40 Active 53764383 Problem Right carpal tunnel syndrome G56.01 Active 116255569201325 Problem Right arm numbness R20.2 Active 479842298 Problem Anxiety F41.9 Active 97852000 Problem Nonintractable migraine, unspecified migraine type G43.009 Active 68020262 Problem GERD (gastroesophageal reflux disease) K21.9 Active 923204706 Problem Allergic rhinitis J30.9 Active 69709566 Problem Panic disorder [episodic paroxysmal anxiety] without agoraphobia F41.0 Active 128156891 Problem Major depressive disorder, recurrent, moderate F33.1 Active 42405251 Problem Scoliosis, unspecified scoliosis type, unspecified spinal region M41.9 Active 016275206 Problem Generalized anxiety disorder F41.1 Active 81994044 Problem Eye exam normal Z01.00 Active 334742528 Problem Intractable migraine with aura without status migrainosus G43.119 Active 781808656 Problem Migraine without aura and without status migrainosus, not intractable G43.009 Active 100432291 ALLERGIES Unknown Allergies SOCIAL HISTORY No smoking Hx information available PLAN OF CARE Activity Details Follow Up 3 Months Reason: VITAL SIGNS Height 67 in 2016-04-01 Weight 244 lbs 2016-04-01 Heart Rate 76 bpm 2016-04-01 Respiratory Rate 27 2016-04-01 BMI 38.21 kg/m2 2016-04-01 Blood pressure systolic 112 mmHg 2016-04-01 Blood pressure diastolic 70 mmHg 2016-04-01 MEDICATIONS Medication Instructions Dosage Frequency Start Date End Date Duration Status PredniSONE 20 mg Orally Once a day 2 tablets 24h Mar, Mar, 05 days Active Promethazine HCl 25 MG TAKE ONE TABLET BY MOUTH EVERY 6 HOURS NEEDED FOR NAUSEA 7 Active Orphenadrine Citrate ER 100 MG TAKE ONE TABLET BY MOUTH TWICE DAILY 30 Active Doxycycline Hyclate 100 MG Orally every 12 hrs 1 capsule 12h Mar, Mar, 10 days Active Ibuprofen 800 MG Orally Three times a day 1 tablet 8h 30 days Active Maxalt 10 mg Orally Once a day 1 tablet as needed May repeat in 2 hours 24h Nov, Active HydrOXYzine HCl 25 MG Orally 4 times a day 1 tablet as needed 6h September, 30 days Active Ativan 1 MG Orally three times a day 1 tablet as needed 8h 08 Jun, 2015 30 days Active Citalopram Hydrobromide 10 MG Orally Once a day 1 tablet 24h Dec, 30 days Active Cyproheptadine HCl 4 MG Orally once a day 2 tablet 24h Mar, 30 day(s) Active Omeprazole 40 MG TAKE ONE CAPSULE BY MOUTH ONCE DAILY 90 Active Cymbalta 60 MG Orally Twice a day 1 capsule 12h Oct, 30 days Active Lyrica 200 MG Orally Twice a day 1 capsule 12h Jul, 30 days Active RESULTS No Results PROCEDURES Procedure Date Ordered Related Diagnosis Body Site MH Office Visit, Est Pt., Level 3 Apr 01, 2016 IMMUNIZATIONS No Known Immunizations
--- OUTSIDE RECORDS SUMMARY | 2017-04-15 09:17 | XMS REPORT ---
Author Author FADIA LAURA [facility] eClinicalWorks Address Unknown Phone Unavailable Care Team Providers Care Neon Tube Pumper Name Role Phone FADIA LAURA CP Unavailable [...] type, unspecified spinal region M41.9 Active Assessment Yeast infection of the vagina B37.3 Active Problem Eye exam normal Z01.00 Active Problem Encounter for dental examination Z01.20 Active Problem Idiopathic neuropathy G60.9 Active Medications Medication Code System Code Instructions Start Date End Date Status Dosage Diflucan [facility] [address]-20 150 MG Orally one time. May repeat in 3 days if symptoms persist. Mar 22, 2016 1 tablet Results No Known Results Summary Purpose eClinicalWorks Submission
--- OUTSIDE RECORDS SUMMARY | 2017-04-15 09:17 | XMS REPORT ---
Author Author YUE RAMIREZ Organization eClinicalWorks Address Unknown Phone Unavailable Care Team Providers Care Aesthetics Instructor Name Role Phone YUE RAMIREZ CP Unavailable [...] Start Date End Date Status Dosage Ativan [facility] [address]-41 1 MG 2 times a day Jul 11, 2014 0.5-1 tablet by Oral route 2 times per day PRN Must last 30 days-take only for severe anxiety Results No Known Results Summary Purpose eClinicalWorks Submission
--- OUTSIDE RECORDS SUMMARY | 2017-04-15 09:17 | XMS REPORT ---
Author Author FADIA LAURA Organization eClinicalWorks Address Unknown Phone Unavailable Care Team Providers Care Food Aide Name Role Phone FADIA LAURA CP Unavailable [...] nails 112.3 Active Medications No Known Medications Results No Known Results Summary Purpose eClinicalWorks Submission
--- OUTSIDE RECORDS SUMMARY | 2017-04-15 09:17 | XMS REPORT ---
Author Author YUE RAMIREZ [facility] eClinicalWorks Address Unknown Phone Unavailable Care Team Providers Care Online Community Manager Name Role Phone YUE RAMIREZ CP Unavailable Allergies No Known Allergies Problems Problem Type Condition Code Onset Dates Condition Status Problem Eye exam normal Z01.00 Active Problem Idiopathic neuropathy G60.9 Active Problem Encounter for dental examination Z01.20 Active Assessment Anxiety disorder, unspecified F41.9 Active Assessment Major depression F32.9 Active Problem Scoliosis, unspecified scoliosis type, unspecified spinal region M41.9 Active Problem Nonintractable migraine, unspecified migraine type G43.009 Active Problem Intractable migraine with aura without status migrainosus G43.119 Active Problem GERD (gastroesophageal reflux disease) K21.9 Active Problem Fibromyalgia M79.7 Active Problem Anxiety F41.9 Active Problem Allergic rhinitis J30.9 Active Medications Medication Code System Code Instructions Start Date End Date Status Dosage Orphenadrine Citrate ER [facility] [address]-39 100 MG Orally twice a day September 1 tablet Ativan [facility] [address]-48 1 MG Orally three times a day Jun 26, 2015 1 tablet as needed Atenolol [facility] [address]-69 25 MG Orally Once a day December 12, 2015 1 tablet Citalopram Hydrobromide [facility] [address]-67 10 MG Orally Once a day Jan 10, 2016 1 tablet Lyrica [facility] [address]-07 200 MG Orally Twice a day August 17, 2015 1 capsule Maxalt [facility] [address]-99 10 mg Orally Once a day December 11, 2015 1 tablet as needed May repeat in 2 hours Omeprazole [facility] [address]-73 40 MG TAKE ONE CAPSULE BY MOUTH ONCE DAILY Promethazine HCl [facility] 79568781314 25 MG Orally every 6 hrs 1 tablet as needed for nausea Flonase Allergy Relief [facility] [address]-04 50 MCG/ACT Nasally Once a day September 18, 2015 2 sprays in each nostril Trazodone HCl [facility] [address]-77 150 MG Orally Once a day Jan 10, 2016 1 tablet at bedtime as needed Cymbalta [facility] [address]-67 60 MG Orally Twice a day November 15, 2015 1 capsule Hydrocodone-Acetaminophen [facility] [address]-40 10-325 MG Orally every 6 hrs Mar 28, 2015 1 tablet as needed for severe pain Ibuprofen [facility] [address]-51 800 MG Orally Three times a day 1 tablet HydrOXYzine HCl [facility] [address]-48 25 MG Orally 4 times a day October 11, 2015 1 tablet as needed Procedures Procedure Coding System Code Date MH Office Visit, Est Pt., Level 3 CPT-4 60879 Jan 10, 2016 Vital Signs Date/Time: Jan 10, 2016 Cardiac Monitoring Heart Rate 72 bpm Weight 226.5 lbs Height 67 in BMI 35.47 Index Blood Pressure Diastolic 64 mmHg Blood Pressure Systolic 110 mmHg Results No Known Results Summary Purpose eClinicalWorks Submission
--- OUTSIDE RECORDS SUMMARY | 2017-04-15 09:17 | XMS REPORT ---
Author Author FADIA LAURA [facility] Address [address] [place] [address] Care Team Providers Care Life Assurance Representative Name Role Phone FADIA LAURA Unavailable PROBLEMS Type Condition ICD9-CM Code [id number] Code Onset Dates Condition Status SNOMED Code Problem Seasonal allergic rhinitis due to pollen J30.1 Active 12382085 Problem Lumbago with sciatica, unspecified side M54.40 Active 38879339 Problem Other headache syndrome G44.89 Active 271805003 Problem Tonsillar calculus J35.8 Active 3232506 Problem Idiopathic neuropathy G60.9 Active 88991576 Problem Irritable bowel syndrome with diarrhea K58.0 Active 829695975 Problem Encounter for dental examination Z01.20 Active 192085874 Problem Eye exam normal Z01.00 Active 852859598 Problem Right arm numbness R20.2 Active 732197820 Problem Post concussion syndrome F07.81 Active 21912023 Problem Acute non intractable tension-type headache G44.209 Active 848755677 Problem Right carpal tunnel syndrome G56.01 Active 892687754230994 Problem GERD (gastroesophageal reflux disease) K21.9 Active 906471501 Problem Anxiety F41.9 Active 17737393 Problem Fibromyalgia M79.7 Active 89676606 Problem Allergic rhinitis J30.9 Active 06163029 Problem Generalized anxiety disorder F41.1 Active 98519019 Problem Panic disorder [episodic paroxysmal anxiety] without agoraphobia F41.0 Active 268743188 Problem Scoliosis, unspecified scoliosis type, unspecified spinal region M41.9 Active 727201543 Problem Major depressive disorder, recurrent, moderate F33.1 Active 21443532 Problem Intractable migraine with aura without status migrainosus G43.119 Active 385801244 Problem Migraine without aura and without status migrainosus, not intractable G43.009 Active 161600758 ALLERGIES No Information SOCIAL HISTORY Never Assessed PLAN OF CARE VITAL SIGNS MEDICATIONS No Known Medications RESULTS No Results PROCEDURES No Known procedures IMMUNIZATIONS No Known Immunizations MEDICAL (GENERAL) HISTORY Type Description Date Medical History gastroesophageal reflux disease (GERD) Medical History scoliosis Medical History depression Medical History HPV Medical History herpetic lesion of vulva Surgical History tubal ligation 2002 Surgical History tonsillectomy and adenoidectomy 1994 Surgical History hysterectomy for fibroids at [facility] by [facility] 06/2020 Surgical History cholecystectomy 2005 Surgical History Labrum repair 01/30/2016 Hospitalization History surgeries Hospitalization History [facility] for bruised ribs/post fall 12/09/15
--- OUTSIDE RECORDS SUMMARY | 2017-04-15 09:18 | XMS REPORT ---
Author Author CARMENCITA REID [facility] eClinicalWorks Address Unknown Phone Unavailable Care Team Providers Care Unload Associate Name Role Phone CARMENCITA REID CP Unavailable [...] patient &/family, 30 minutes, established patient CPT-4 54952 Feb 19, 2016 Results No Known Results Summary Purpose eClinicalWorks Submission
--- OUTSIDE RECORDS SUMMARY | 2017-04-15 09:18 | XMS REPORT ---
Author Author YUE RAMIREZ Organization eClinicalWorks Address Unknown Phone Unavailable Care Team Providers Care Speech Communication Professor Name Role Phone YUE RAMIREZ CP Unavailable [...]
--- OUTSIDE RECORDS SUMMARY | 2017-04-15 09:18 | XMS REPORT ---
Author Author FADIA LAURA Organization eClinicalWorks Address Unknown Phone Unavailable Care Team Providers Care Morning Show Producer Name Role Phone FADIA LAURA CP Unavailable [...] Instructions Start Date End Date Status Dosage Atenolol [facility] [address]-74 25 MG Orally Once a day December 12, 2015 1 tablet Results No Known Results Summary Purpose eClinicalWorks Submission
--- OUTSIDE RECORDS SUMMARY | 2017-04-15 09:18 | XMS REPORT ---
Author Author YUE RAMIREZ [facility] Address Unknown Care Team Providers Care Rock Singer Name Role Phone YUE RAMIREZ Unavailable PROBLEMS Type Condition ICD9-CM Code [id number] Code Onset Dates Condition Status SNOMED Code Problem GERD (gastroesophageal reflux disease) K21.9 Active 509416842 Problem Anxiety F41.9 Active 66880344 Problem Allergic rhinitis J30.9 Active 05797392 Problem Eye exam normal Z01.00 Active 212180041 Problem Encounter for dental examination Z01.20 Active 984906277 Problem Idiopathic neuropathy G60.9 Active 19105524 Problem Fibromyalgia M79.7 Active 43803689 Problem Generalized anxiety disorder F41.1 Active 98474404 Problem Major depressive disorder, recurrent, moderate F33.1 Active 75745763 Problem Scoliosis, unspecified scoliosis type, unspecified spinal region M41.9 Active 537153327 Problem Nonintractable migraine, unspecified migraine type G43.009 Active 25117561 Problem Panic disorder [episodic paroxysmal anxiety] without agoraphobia F41.0 Active 98181317 Problem Intractable migraine with aura without status migrainosus G43.119 Active 906149136 ALLERGIES Unknown Allergies SOCIAL HISTORY No smoking Hx information available PLAN OF CARE VITAL SIGNS MEDICATIONS Medication Instructions Dosage Frequency Start Date End Date Duration Status Ativan 1 MG Orally three times a day 1 tablet as needed 8h 08 Jun, 2015 Active RESULTS No Results PROCEDURES No Known procedures IMMUNIZATIONS No Known Immunizations
--- OUTSIDE RECORDS SUMMARY | 2017-04-15 09:18 | XMS REPORT ---
Author Author YUE RAMIREZ Organization eClinicalWorks Address Unknown Phone Unavailable Care Team Providers Care Pocketbook Maker Name Role Phone YUE RAMIREZ CP Unavailable Allergies No Known Allergies Problems Problem Type Condition Code Onset Dates Condition Status Problem Routine general medical examination at health care facility V70.0 Active Problem Other specified counseling V65.49 Active Problem Scoliosis (and kyphoscoliosis), idiopathic 737.30 Active Problem GERD (gastroesophageal reflux disease) K21.9 Active Problem Fibromyalgia M79.7 Active Problem Allergic rhinitis J30.9 Active Problem Acute sinusitis, unspecified 461.9 Active Problem Leukorrhea, not specified as infective 623.5 Active Problem Idiopathic neuropathy G60.9 Active Problem Encounter for dental examination Z01.20 Active Problem Dysfunction of Eustachian tube 381.81 Active Problem Other and unspecified noninfectious gastroenteritis and colitis 558.9 Active Problem Abdominal pain, left lower quadrant [...] Start Date End Date Status Dosage Ativan [facility] [address]-59 1 MG Orally three times a day Jun 26, 2015 1 tablet as needed Results No Known Results Summary Purpose eClinicalWorks Submission
--- OUTSIDE RECORDS SUMMARY | 2017-04-15 09:18 | XMS REPORT ---
Author Author FADIA LAURA Organization eClinicalWorks Address Unknown Phone Unavailable Care Team Providers Care Molding Cutter Name Role Phone FADIA LAURA CP [...] Start Date End Date Status Dosage Hydrocodone-Acetaminophen [facility] [address]-96 10-325 MG Orally every 6 hrs Mar 28, 2015 1 tablet as needed Results No Known Results Summary Purpose eClinicalWorks Submission
--- OUTSIDE RECORDS SUMMARY | 2017-04-15 09:18 | XMS REPORT ---
Author Author YUE RAMIREZ [facility] eClinicalWorks Address Unknown Phone Unavailable Care Team Providers Care Assistant Professor Of German Name Role Phone YUE RAMIREZ CP Unavailable [...] Start Date End Date Status Dosage Ativan [facility] [address]-96 1 MG 2 times a day Jul 11, 2014 0.5-1 tablet by Oral route 2 times per day PRN Must last 30 days-take only for severe anxiety Results No Known Results Summary Purpose eClinicalWorks Submission
--- OUTSIDE RECORDS SUMMARY | 2017-04-15 09:19 | XMS REPORT ---
Author Author CAROLINA LAURA Organization eClinicalWorks Address Unknown Phone Unavailable Care Team Providers Care Green Plumber Name Role Phone CAROLINA LAURA CP Unavailable [...] Start Date End Date Status Dosage Lyrica [facility] [address]-[address] Quintero to sign for [place] Jul 11, 2014 1 capsule by Oral route 2 times per day for fibromyalgia (729.1) or idioapathic neuropathy (356.9) Results No Known Results Summary Purpose eClinicalWorks Submission
--- OUTSIDE RECORDS SUMMARY | 2017-04-15 09:19 | XMS REPORT ---
Author KIRTI Mclaughlin [facility] eClinicalWorks Address Unknown Phone Unavailable Care Team Providers Care Clock Maker Name Role Phone KIRTI BECKFORD Unavailable Allergies, [...] Active Problem Other headache syndrome G44.89 Active Assessment Cough R05 Active Problem Seasonal allergic rhinitis due to pollen J30.1 Active Assessment Seasonal allergic rhinitis due to pollen J30.1 Active Problem Tonsillar exudate J35.8 Active Problem Major depressive disorder, recurrent, moderate F33.1 Active Problem Panic disorder [episodic paroxysmal anxiety] without agoraphobia F41.0 Active Problem Migraine without aura and without status migrainosus, not intractable G43.009 Active Problem Generalized anxiety disorder F41.1 Active Assessment Tonsillar exudate J35.8 Active Problem Eye exam normal Z01.00 Active Assessment Body aches R52 Active Assessment Other headache syndrome G44.89 Active Problem Fibromyalgia M79.7 Active Problem GERD (gastroesophageal reflux disease) K21.9 Active Problem Encounter for dental examination Z01.20 Active Problem Allergic rhinitis J30.9 Active Problem Idiopathic neuropathy G60.9 Active Problem Anxiety F41.9 Active Medications Medication Code System Code Instructions Start Date End Date Status Dosage PredniSONE [facility] [address]-23 20 mg Orally Once a day Apr 01, 2016 Apr 06, 2016 2 tablets HydrOXYzine HCl [facility] [address]-72 25 MG Orally 4 times a day October 11, 2015 1 tablet as needed Ibuprofen [facility] [address]-81 800 MG Orally Three times a day 1 tablet Citalopram Hydrobromide [facility] [address]-34 10 MG Orally Once a day Jan 10, 2016 1 tablet Mometasone Furoate [facility] [address]-94 50 MCG/ACT Nasally Once a day Apr 01, 2016 2 sprays in each nostril Doxycycline Hyclate [facility] [address]-86 100 MG Orally every 12 hrs Apr 01, 2016 Apr 11, 2016 1 capsule Omeprazole [facility] 75147758905 40 MG TAKE ONE CAPSULE BY MOUTH ONCE DAILY Trazodone HCl [facility] [address]-22 150 MG Orally Once a day Jan 10, 2016 1 tablet at bedtime as needed Cymbalta [facility] [address]-76 60 MG Orally Twice a day November 15, 2015 1 capsule Ativan [facility] [address]-64 1 MG Orally three times a day Jun 26, 2015 1 tablet as needed Promethazine HCl [facility] [address]-75 25 MG TAKE ONE TABLET BY MOUTH EVERY 6 HOURS NEEDED FOR NAUSEA Maxalt [facility] [address]-83 10 mg Orally Once a day December 11, 2015 1 tablet as needed May repeat in 2 hours Lyrica [facility] [address]-76 200 MG Orally Twice a day August 17, 2015 1 capsule Orphenadrine Citrate ER [facility] [address]-08 100 MG TAKE ONE TABLET BY MOUTH TWICE DAILY Procedures Procedure Coding System Code Date INFLUENZA ASSAY W/OPTIC CPT-4 96308 Apr 01, 2016 Office Visit, Est Pt., Level 3 CPT-4 49926 Apr 01, 2016 STREP A ASSAY W/OPTIC CPT-4 16525 Apr 01, 2016 Vital Signs Date/Time: Apr 01, 2016 Cardiac Monitoring Heart Rate 76 bpm Weight 244.0 lbs Height 67 in BMI 38.21 Index Blood Pressure Diastolic 70 mmHg Blood Pressure Systolic 112 mmHg Results Name Result Date Reference Range Unit Abnormality Flag INFLUENZA A & B (IN HOUSE) ----Exp date [id number] ----INFLUENZA A negative [id number] ----INFLUENZA B negative [id number] ----Control + [id number] ----Lot # [id number] STREP A (IN HOUSE) ----Exp date [id number] ----Control + [id number] ----Lot # [id number] ----STREP A Negtive [id number] Summary Purpose eClinicalWorks Submission
--- OUTSIDE RECORDS SUMMARY | 2017-04-15 09:19 | XMS REPORT ---
Author Author DALIA MATTHEW Organization [facility] Address [address] [place] [address] Care Team Providers Care Biopsychologist Name Role Phone MATTHEW GÓMEZ Unavailable PROBLEMS Type Condition ICD9-CM Code [id number] Code Onset Dates Condition Status SNOMED Code Problem Seasonal allergic rhinitis due to pollen J30.1 Active 11349669 Problem Lumbago with sciatica, unspecified side M54.40 Active 10476658 Problem Other headache syndrome G44.89 Active 154270355 Problem Tonsillar calculus J35.8 Active 9973208 Problem Idiopathic neuropathy G60.9 Active 35860272 Problem Irritable bowel syndrome with diarrhea K58.0 Active 745449225 Problem Encounter for dental examination Z01.20 Active 966979877 Problem Eye exam normal Z01.00 Active 278961535 Problem Right arm numbness R20.2 Active 691592199 Problem Post concussion syndrome F07.81 Active 00068515 Problem Acute non intractable tension-type headache G44.209 Active 012601669 Problem Right carpal tunnel syndrome G56.01 Active 726259080885315 Problem GERD (gastroesophageal reflux disease) K21.9 Active 108571704 Problem Anxiety F41.9 Active 60961493 Problem Fibromyalgia M79.7 Active 39166551 Problem Allergic rhinitis J30.9 Active 18492324 Problem Generalized anxiety disorder F41.1 Active 84320031 Problem Panic disorder [episodic paroxysmal anxiety] without agoraphobia F41.0 Active 436905473 Problem Scoliosis, unspecified scoliosis type, unspecified spinal region M41.9 Active 773163366 Problem Major depressive disorder, recurrent, moderate F33.1 Active 56222692 Problem Hypersomnia G47.10 Active 57364423 Problem Intractable migraine with aura without status migrainosus G43.119 Active 304582140 Problem Migraine without aura and without status migrainosus, not intractable G43.009 Active 000446247 ALLERGIES Substance Reaction Event Type Date Status Tramadol HCl Unknown Drug Allergy September, Active Naproxen rash Drug Allergy September, Active Codeine Sulfate Unknown Drug Allergy September, Active Augmentin rash Drug Allergy September, Active SOCIAL HISTORY Never Assessed PLAN OF CARE Activity Details Follow Up prn Reason: VITAL SIGNS Height 67 in 2016-10-08 Weight 247.8 lbs 2016-10-08 Temperature 97.2 degrees Fahrenheit 2016-10-08 Heart Rate 80 bpm 2016-10-08 Respiratory Rate 18 2016-10-08 Oximetry on room air:98 % 2016-10-08 BMI 38.81 kg/m2 2016-10-08 Blood pressure systolic 122 mmHg 2016-10-08 Blood pressure diastolic 78 mmHg 2016-10-08 MEDICATIONS Medication Instructions Dosage Frequency Start Date End Date Duration Status Cymbalta 60 MG Orally Twice a day 1 capsule 12h Oct, 30 days Active Diflucan 150 MG Orally one time. May repeat in 3 days if symptoms persist. 1 tablet 4 days Active Orphenadrine Citrate ER 100 MG TAKE ONE TABLET BY MOUTH TWICE DAILY 30 Active Amoxicillin 875 MG Orally every 12 hrs 1 tablet 12h September, Oct, 10 day(s) Active HydrOXYzine HCl 25 MG Orally four times a day 1 tablet as needed 6h 30 days Active Lyrica 200 MG Orally Twice a day 1 capsule 12h Jul, 28 days Active Amoxicillin-Pot Clavulanate 875-125 MG Orally every 12 hrs 1 tablet 12h Active Ativan 1 MG Orally 1 tablet twice a day 1 tablet as needed Aug, 30 days Active Cetirizine HCl 10 MG Orally Once a day 1 tablet 24h September, 30 day (s) Active Promethazine HCl 25 MG TAKE ONE TABLET BY MOUTH EVERY 6 HOURS NEEDED FOR NAUSEA 7 Active PredniSONE 20 MG Orally Once a day 3 tablet x 3 days, 2 tablet x 3 days, 1 tablet x 3 days 1/2 tablet x 4 days 24h September, Oct, 13 days Active Indomethacin 50 mg Orally every 8 hours, PRN 1 capsule with food or milk 30 Active Omeprazole 40 MG TAKE ONE CAPSULE BY MOUTH ONCE DAILY 90 Active Citalopram Hydrobromide 20 MG Orally Once a day 1 tablet 24h Aug, 30 day(s) Active RESULTS No Results PROCEDURES Procedure Date Ordered Result Body Site MEASURE BLOOD OXYGEN LEVEL October 08, 2016 IMMUNIZATIONS No Known Immunizations MEDICAL (GENERAL) HISTORY Type Description Date Medical History gastroesophageal reflux disease (GERD) Medical History scoliosis Medical History depression Medical History HPV Medical History herpetic lesion of vulva Surgical History tubal ligation 2002 Surgical History tonsillectomy and adenoidectomy 1994 Surgical History hysterectomy for fibroids at [facility] by [facility] 06/2020 Surgical History cholecystectomy 2005 Surgical History Labrum repair 01/30/2016 Hospitalization History surgeries Hospitalization History [facility] for bruised ribs/post fall 12/09/15
--- OUTSIDE RECORDS SUMMARY | 2017-04-15 09:19 | XMS REPORT ---
Author JUNAID Shepard [facility] [employer] Address Unknown Phone Unavailable Care Team Providers Care Legal File Clerk Name Role Phone JUNAID MCDONOUGH CP Unavailable Allergies, Adverse Reactions, Alerts Substance [...] type, unspecified spinal region M41.9 Active Assessment Dog bite, initial encounter W54.0XXA Active Problem Eye exam normal Z01.00 Active Problem Encounter for dental examination Z01.20 Active Assessment Encounter for immunization Z23 Active Problem Idiopathic neuropathy G60.9 Active Medications Medication Code System Code Instructions Start Date End Date Status Dosage Ceftin [facility] [address]-80 500 MG Orally Twice a day Mar 05, 2016 Mar 15, 2016 1 tablet Ativan [facility] [address]-02 1 MG Orally three times a day Jun 26, 2015 1 tablet as needed Citalopram Hydrobromide [facility] [address]-16 10 MG Orally Once a day Jan 10, 2016 1 tablet Lyrica [facility] [address]-24 200 MG Orally Twice a day August 17, 2015 1 capsule Bactroban [facility] [address]-49 2 % Externally Three times a day Mar 05, 2016 Mar 15, 2016 1 application to affected area Orphenadrine Citrate ER [facility] [address]-57 100 MG TAKE ONE TABLET BY MOUTH TWICE DAILY Trazodone HCl [facility] [address]-51 150 MG Orally Once a day Jan 10, 2016 1 tablet at bedtime as needed Cymbalta [facility] [address]-51 60 MG Orally Twice a day November 15, 2015 1 capsule Ibuprofen [facility] [address]-43 800 MG Orally Three times a day 1 tablet Flonase Allergy Relief [facility] [address]-69 50 MCG/ACT Nasally Once a day September 18, 2015 2 sprays in each nostril Promethazine HCl [facility] [address]-38 25 MG TAKE ONE TABLET BY MOUTH EVERY 6 HOURS NEEDED FOR NAUSEA Omeprazole [facility] [address]-44 40 MG TAKE ONE CAPSULE BY MOUTH ONCE DAILY Maxalt [facility] [address]-18 10 mg Orally Once a day December 11, 2015 1 tablet as needed May repeat in 2 hours HydrOXYzine HCl [facility] [address]-16 25 MG Orally 4 times a day October 11, 2015 1 tablet as needed Procedures Procedure Coding System Code Date TDAP (BOOSTRIX) CPT-4 36779 Mar 05, 2016 SINGLE IMMUNIZATION ADMIN CPT-4 29555 Mar 05, 2016 Office Visit, Est Pt., Level 3 CPT-4 65377 Mar 05, 2016 Vital Signs Date/Time: Mar 05, 2016 Cardiac Monitoring Heart Rate 78 bpm Weight 234.2 lbs Height 67 in BMI 36.68 Index Blood Pressure Diastolic 86 mmHg Blood Pressure Systolic 114 mmHg Results No Known Results Immunizations Vaccine Administration Date TDAP (BOOSTRIX) Mar 05, 2016 Summary Purpose eClinicalWorks Submission
--- OUTSIDE RECORDS SUMMARY | 2017-04-15 09:19 | XMS REPORT ---
Author Author HCA YOON [facility] Address Unknown Phone Unavailable Care Team Providers Care Manager Intelligence Name Role Phone CHA YOON CP Unavailable Allergies No Known Allergies Problems Problem Type Condition Code Onset Dates Condition Status Problem Encounter for dental examination Z01.20 Active Assessment SLAP lesion of right shoulder S43.431A Active Problem Nonintractable migraine, unspecified migraine type G43.009 Active Problem Anxiety F41.9 Active Problem Scoliosis, unspecified scoliosis type, unspecified spinal region M41.9 Active Problem Fibromyalgia M79.7 Active Problem Idiopathic neuropathy G60.9 Active Problem Allergic rhinitis J30.9 Active Problem GERD (gastroesophageal reflux disease) K21.9 Active Medications No Known Medications Procedures Procedure Coding System Code Date Office Visit, Est Pt., Level 3 CPT-4 75385 December 14, 2015 Vital Signs Date/Time: December 14, 2015 Blood Pressure Diastolic 72 mmHg Blood Pressure Systolic 126 mmHg Height 67 in Results No Known Results Summary Purpose eClinicalWorks Submission
--- OUTSIDE RECORDS SUMMARY | 2017-04-15 09:19 | XMS REPORT ---
Author Author JANNY ROSENBAUM [employer] Address Unknown Phone Unavailable Care Team Providers Care Freight Clerk Name Role Phone JANNY ROSENBAUM CP Unavailable Allergies, Adverse Reactions, Alerts Substance [...] noninfectious gastroenteritis and colitis 558.9 Active Assessment Encounter for dental examination Z01.20 Active Problem Candidiasis of skin and nails 112.3 Active Problem Abdominal pain, left lower quadrant 789.04 Active Problem Migraine with aura, without mention of intractable migraine without mention of status migrainosus 346.00 Active Medications Medication Code System Code Instructions Start Date End Date Status Dosage Lyrica [facility] [address]-93 200 MG Orally 2 times a day Jul 11, 2014 1 capsule by Oral route 2 times per day for fibromyalgia (729.1) or idioapathic neuropathy (356.9) Orphenadrine Citrate ER [facility] [address]-46 100 MG Orally 2 times a day 1 tablet Flonase NDC 0 50 mcg/actuation 2 spray(s) intranasally once a day July 2 sprays by Nasal route 1 time per day Cymbalta [facility] [address]-54 60 MG Orally Once a day Mar 03, 2015 1 capsule Ativan [facility] 23109978553 1 MG TAKE ONE-HALF TO ONE TABLET BY MOUTH TWICE DAILY NEEDED FOR SEVERE ANXIETY ONLY (MUST LAST 30 DAYS) Promethazine HCl [facility] 63509579005 25 MG Orally every 6 hrs 1 tablet as needed for nausea Hydrocodone-Acetaminophen [facility] [address]-63 10-325 MG Orally every 6 hrs Mar 28, 2015 1 tablet as needed Nexium [facility] [address]-72 40 MG Jun 27, 2014 1 capsule by Oral route 1 time per day Robaxin-750 [facility] [address]-70 750 MG Orally 3 times a day as needed for pain November 09, 2014 1 tablet Clindamycin HCl [facility] [address]-34 150 MG Orally every 6 hrs Jun 07, 2015 Jun 14, 2015 2 capsules Procedures Procedure Coding System Code Date INTRAORL-PERIAPICAL 1 FILM 55488 CPT-4 D0220 Jun 07, 2015 INTRAORL-PERIAPICAL 1 FILM 66627 CPT-4 D0220 Jun 07, 2015 LTD ORAL EVALUATION - PROBLEM FOCUS CPT-4 D0140 Jun 07, 2015 Vital Signs Date/Time: Jun 07, 2015 Blood Pressure Diastolic 87 mmHg Blood Pressure Systolic 130 mmHg Height 67 in Results No Known Results Summary Purpose eClinicalWorks Submission
--- OUTSIDE RECORDS SUMMARY | 2017-04-15 09:19 | XMS REPORT ---
Author ELISSA Lopez Organization [employer] Address Unknown Phone Unavailable Care Team Providers Care Candy Separator Hard Name Role Phone ELISSA RAI CP Unavailable Allergies No Known Allergies Problems [...] Start Date End Date Status Dosage Lyrica [facility] [address]-75 200 MG Orally 2 times a day Jul 11, 2014 1 capsule by Oral route 2 times per day for fibromyalgia (729.1) or idioapathic neuropathy (356.9) Results No Known Results Summary Purpose eClinicalWorks Submission
--- OUTSIDE RECORDS SUMMARY | 2017-04-15 09:19 | XMS REPORT ---
Author Author FADIA LAURA Organization [employer] Address Unknown Phone Unavailable Care Team Providers Care Die Maker Name Role Phone FADIA LAURA CP Unavailable [...] type, unspecified spinal region M41.9 Active Problem Eye exam normal Z01.00 Active Problem Encounter for dental examination Z01.20 Active Problem Idiopathic neuropathy G60.9 Active Medications No Known Medications Results No Known Results Summary Purpose eClinicalWorks Submission
--- OUTSIDE RECORDS SUMMARY | 2017-04-15 09:20 | XMS REPORT ---
Author Author FADIA LAURA Organization [employer] Address Unknown Phone Unavailable Care Team Providers Care Recreational Resort Manager Name Role Phone FADIA LAURA CP Unavailable [...] Start Date End Date Status Dosage Lyrica [facility] [address]-14 200 MG Orally Twice a day August 17, 2015 1 capsule Results No Known Results Summary Purpose eClinicalWorks Submission
--- OUTSIDE RECORDS SUMMARY | 2017-04-15 09:20 | XMS REPORT ---
Author Author FADIA LAURA [facility] eClinical[employer] Address Unknown Phone Unavailable Care Team Providers Care Territory Development Manager Name Role Phone FADIA LAURA CP Unavailable Allergies, Adverse Reactions, Alerts Substance Reaction Event Type Tramadol HCl Info Not Available Drug Allergy Naproxen rash Drug Allergy Codeine Sulfate Info Not Available Drug Allergy Augmentin rash Drug Allergy Problems Problem Type Condition Code Onset Dates Condition Status Assessment Fibromyalgia M79.7 Active Problem Encounter for dental examination Z01.20 Active Assessment Intractable migraine with aura without status migrainosus G43.119 Active Problem Nonintractable migraine, unspecified migraine type G43.009 Active Problem Anxiety F41.9 Active Problem Scoliosis, unspecified scoliosis type, unspecified spinal region M41.9 Active Problem Fibromyalgia M79.7 Active Problem Idiopathic neuropathy G60.9 Active Problem Allergic rhinitis J30.9 Active Problem GERD (gastroesophageal reflux disease) K21.9 Active Medications Medication Code System Code Instructions Start Date End Date Status Dosage Maxalt [facility] [address]-40 10 mg Orally Once a day December 11, 2015 1 tablet as needed May repeat in 2 hours HydrOXYzine HCl [facility] [address]-20 25 MG Orally 4 times a day October 11, 2015 1 tablet as needed Ativan [facility] [address]-10 1 MG Orally three times a day Jun 26, 2015 1 tablet as needed Orphenadrine Citrate ER [facility] [address]-65 100 MG Orally twice a day September 1 tablet Doxycycline Hyclate [facility] [address]-02 100 MG Orally every 12 hrs December 06, 2015 December 16, 2015 1 capsule Cymbalta [facility] [address]-83 60 MG Orally Twice a day November 15, 2015 1 capsule Trazodone HCl [facility] [address]-73 100 MG Orally Once a day November 15, 2015 1 tablet at bedtime Lyrica [facility] [address]-92 200 MG Orally Twice a day August 17, 2015 1 capsule Hydrocodone-Acetaminophen [facility] [address]-11 10-325 MG Orally every 6 hrs Mar 28, 2015 1 tablet as needed for severe pain Ibuprofen [facility] [address]-58 800 MG Orally Three times a day 1 tablet Omeprazole [facility] [address]-04 40 mg Orally Once a day September 18, 2015 1 capsule Promethazine HCl [facility] 56074668011 25 MG Orally every 6 hrs 1 tablet as needed for nausea Timolol Maleate [facility] [address]-39 10 mg Orally Once a day at bedtime for 5 days then bid December 11, 2015 1 tablet Flonase Allergy Relief [facility] [address]-52 50 MCG/ACT Nasally Once a day September 18, 2015 2 sprays in each nostril Procedures Procedure Coding System Code Date Office Visit, Est Pt., Level 3 CPT-4 90693 December 11, 2015 Vital Signs Date/Time: December 11, 2015 Cardiac Monitoring Heart Rate 76 bpm Weight 232.6 lbs Height 67 in BMI 36.43 Index Blood Pressure Diastolic 83 mmHg Blood Pressure Systolic 135 mmHg Results No Known Results Summary Purpose eClinicalWorks Submission
--- OUTSIDE RECORDS SUMMARY | 2017-04-15 09:20 | XMS REPORT ---
Author Author MATTHEW ISSA [facility] eClinicalWorks Address Unknown Phone Unavailable Care Team Providers Care Cnc Mill And Lathe Operator Name Role Phone MATTHEW ISSA CP Unavailable Allergies, Adverse Reactions, Alerts Substance [...] Nasal route 1 time per day Nexium [facility] [address]-49 40 MG Jun 27, 2014 1 capsule by Oral route 1 time per day Robaxin-750 [facility] [address]-60 750 MG Orally 3 times a day as needed for pain November 09, 2014 1 tablet Hydrocodone-Acetaminophen [facility] [address]-12 10-325 MG Orally every 6 hrs Mar 28, 2015 1 tablet as needed Ativan [facility] [address]-37 1 MG 2 times a day Jul 11, 2014 0.5-1 tablet by Oral route 2 times per day PRN Must last 30 days-take only for severe anxiety Orphenadrine Citrate ER [facility] 11861725377 100 MG Orally 2 times a day 1 tablet Promethazine HCl [facility] 30014647744 25 MG Orally every 6 hrs 1 tablet as needed for nausea Cymbalta [facility] [address]-02 60 MG Orally Once a day Mar 03, 2015 1 capsule Lyrica [facility] [address]-61 200 MG Orally 2 times a day Jul 11, 2014 1 capsule by Oral route 2 times per day for fibromyalgia (729.1) or idioapathic neuropathy (356.9) Procedures Procedure Coding System Code Date INTRAORL-PERIAPICAL 1 FILM 69618 CPT-4 D0220 May 09, 2015 INTRAORL-PERIAPICAL EA ADD FILM CPT-4 D0230 May 09, 2015 PERIODIC ORAL EXAMINATION CPT-4 D0120 May 09, 2015 PROPHYLAXIS - ADULT CPT-4 D1110 May 09, 2015 BITEWINGS - FOUR FILMS CPT-4 D0274 May 09, 2015 TOPICAL FLUORIDE VARNISH CPT-4 D1206 May 09, 2015 INTRAORL-PERIAPICAL EA ADD FILM CPT-4 D0230 May 09, 2015 INTRAORL-PERIAPICAL EA ADD FILM CPT-4 D0230 May 09, 2015 INTRAORL-PERIAPICAL EA ADD FILM CPT-4 D0230 May 09, 2015 INTRAORL-PERIAPICAL EA ADD FILM CPT-4 D0230 May 09, 2015 Vital Signs Date/Time: May 09, 2015 Blood Pressure Diastolic 69 mmHg Blood Pressure Systolic 112 mmHg Cardiac Monitoring Heart Rate 80 bpm Results No Known Results Summary Purpose eClinicalWorks Submission
--- OUTSIDE RECORDS SUMMARY | 2017-04-15 09:20 | XMS REPORT ---
Author Author FADIA LAURA [facility] Address [address] [place] [address] Care Team Providers Care Universal Branch Consultant Name Role Phone FADIA LAURA Unavailable PROBLEMS Type Condition ICD9-CM Code [id number] Code Onset Dates Condition Status SNOMED Code Problem Scoliosis, unspecified scoliosis type, unspecified spinal region M41.9 Active 773946861 Problem Panic disorder [episodic paroxysmal anxiety] without agoraphobia F41.0 Active 06908349 Problem Intractable migraine with aura without status migrainosus G43.119 Active 016165160 Problem Tonsillar exudate J35.8 Active 849772840 Assessment Nausea R11.0 Mar, Active 926739372 Problem Other headache syndrome G44.89 Active 011596641 Problem Generalized anxiety disorder F41.1 Active 70428320 Problem Major depressive disorder, recurrent, moderate F33.1 Active 55854750 Problem Seasonal allergic rhinitis due to pollen J30.1 Active 71519498 Problem Migraine without aura and without status migrainosus, not intractable G43.009 Active 497992410 Problem Eye exam normal Z01.00 Active 312677444 Problem Encounter for dental examination Z01.20 Active 624121002 Assessment Arthralgia, unspecified joint M25.50 Mar, Active 37709869 Assessment Cough R05 Mar, Active 28762522 Problem GERD (gastroesophageal reflux disease) K21.9 Active 671800237 Problem Allergic rhinitis J30.9 Active 26882846 Problem Idiopathic neuropathy G60.9 Active 34491694 Problem Anxiety F41.9 Active 41635280 Problem Fibromyalgia M79.7 Active 17252860 Problem Nonintractable migraine, unspecified migraine type G43.009 Active 02091428 ALLERGIES Substance Reaction Event Type Date Status Tramadol HCl Unknown Drug Allergy Mar, Active Naproxen rash Drug Allergy Mar, Active Codeine Sulfate Unknown Drug Allergy Mar, Active Augmentin rash Drug Allergy Mar, Active SOCIAL HISTORY No smoking Hx information available PLAN OF CARE VITAL SIGNS Height 67 in 2016-04-02 Weight 244 lbs 2016-04-02 Heart Rate 94 bpm 2016-04-02 Respiratory Rate 32 2016-04-02 BMI 38.21 kg/m2 2016-04-02 Blood pressure systolic 138 mmHg 2016-04-02 Blood pressure diastolic 74 mmHg 2016-04-02 MEDICATIONS Medication Instructions Dosage Frequency Start Date End Date Duration Status Maxalt 10 mg Orally Once a day 1 tablet as needed May repeat in 2 hours 24h Nov, Active PredniSONE 20 mg Orally Once a day 2 tablets 24h Mar, Mar, 05 days Active Ibuprofen 800 MG Orally Three times a day 1 tablet 8h Active Promethazine HCl 25 MG TAKE ONE TABLET BY MOUTH EVERY 6 HOURS NEEDED FOR NAUSEA 7 Active Doxycycline Hyclate 100 MG Orally every 12 hrs 1 capsule 12h Mar, Mar, 10 days Active HydrOXYzine HCl 25 MG Orally 4 times a day 1 tablet as needed 6h September, 30 days Active Albuterol Sulfate (2.5 MG/3ML) 0.083% Inhalation every 6 hrs as needed for cough 3 ml Mar, Active Orphenadrine Citrate ER 100 MG TAKE ONE TABLET BY MOUTH TWICE DAILY 30 Active Cyproheptadine HCl 4 MG Orally once a day 2 tablet 24h Mar, 30 day(s) Active Omeprazole 40 MG TAKE ONE CAPSULE BY MOUTH ONCE DAILY 90 Active Citalopram Hydrobromide 10 MG Orally Once a day 1 tablet 24h Dec, 30 days Active Lyrica 200 MG Orally Twice a day 1 capsule 12h Jul, 30 days Active Promethazine-Codeine 6.25-10 MG/5ML Orally every 6 hrs 5 - 10 ml as needed 6h Mar, Active Ativan 1 MG Orally three times a day 1 tablet as needed 8h 08 Jun, 2015 30 days Active Cymbalta 60 MG Orally Twice a day 1 capsule 12h Oct, 30 days Active RESULTS No Results PROCEDURES Procedure Date Ordered Related Diagnosis Body Site NEBULIZER TREATMENT 2016-04-02 N/A NEB/MDI RX INITIAL Apr 02, 2016 TORADOL (IM) 60 MG/2ML (UP TO 15 MG) Apr 02, 2016 Office Visit, Est Pt., Level 3 Apr 02, 2016 PHENERGAN (IM) 25 MG (25 MG/ML) Apr 02, 2016 THER/PROPH/DIAG INJ, SC/IM Apr 02, 2016 IMMUNIZATIONS Vaccine Route Administration Date Status PHENERGAN (IM) 25 MG (25 MG/ML) IM Intramuscular Apr 02, 2016 Administered TORADOL (IM) 60 MG/2ML (UP TO 15 MG) IM Intramuscular Apr 02, 2016 Administered
--- NOTE | 2017-04-15 10:17 | Diagnostic Imaging Report ---
Three views of the right foot. INDICATION: Injury and bruising to the fifth toe. FINDINGS: There is an intra-articular fracture through the head of the proximal phalanx of the little toe. There is mild displacement and impaction seen with depression and angulation noted at the articular surface of the head of the proximal phalanx. There is no other fracture. No subluxation or dislocation. IMPRESSION: Impacted minimally displaced intra-articular fracture of the head of the proximal phalanx of the right little toe. Dictated by: Dictated on workstation # [id number]
--- NOTE | 2017-04-15 10:20 | Diagnostic Imaging Report ---
INDICATION: Injury to left hand. TECHNIQUE: AP, oblique, and lateral views of the left hand were obtained. FINDINGS: No fracture or acute bony abnormality is seen. There is no radiopaque foreign body. A soft tissue laceration is noted between the first and second digits. IMPRESSION: No evidence of fracture or radiopaque foreign body. Dictated by: Dictated on workstation # [id number]
--- NOTE | 2017-04-15 11:14 | ED General ---
General Chief Complaint: Bite-Animal/Human/Insect Stated Complaint: DOG BITE INJ AND SWELLING Nursing Triage Note: WHILE TRYING TO BREAK UP A FIGHT BETWEEN HER DOGS HER DOG BIT HER ON HER LEFT HAND. ALSO COMPLAINS OF PAIN RIGHT 5TH TOE. PT STATES HER DOG IS UTD ON HIS RABIES VACCINATION. Nursing Sepsis Screen: No Definite Risk Source of Information: Patient Exam Limitations: No Limitations History of Present Illness Time Seen by Provider: 09:22 Initial Comments This 36-year-old woman presents to the emergency room with complaints of left hand and right foot injuries incurred while breaking up a fight between her dogs. The incident happened about 08:00. She has 2 small lacerations measuring less than 1 cm on the left hand as well as edema and bruising to the left fourth finger to the extent that she had to cut the ring off of it at home. During the incident she also struck her right foot on an unknown object causing injury to the fifth toe. It is tender, swollen, and ecchymotic. She reports being up-to-date on her tetanus immunization within the last couple of years. Her dogs have been vaccinated and are contained. Allergies and Home Medications Allergies Coded Allergies: tramadol (Verified Allergy, Unknown, 06/19/16) codeine (Verified Adverse Reaction, Mild, NAUSEA, 01/26/15) Uncoded Allergies: SEANSONAL ENVIRONMENTAL (Allergy, Mild, 01/17/14) Home Medications Amitriptyline HCl 25 Mg Tablet, #60 (Reported) Amoxicillin/Potassium Clav 1 Each Tablet, 1 EACH PO BID, #10 Prescribed by: NEELIMA YODER on 04/15/17 1115 Citalopram Hydrobromide 10 Mg Tablet, #30 (Reported) Cyproheptadine HCl 4 Mg Tablet, #60 (Reported) Duloxetine HCl 60 Mg Capsule.dr, 60 MG PO DAILY, (Reported) Duloxetine HCl 60 Mg Capsule.dr, #60 (Reported) Esomeprazole Mag Trihydrate 40 Mg Capsule.dr, 40 MG PO DAILY, (Reported) Hydrocodone/Acetaminophen 1 Each Tablet, 1 EACH PO Q6H PRN for PAIN, #12 Prescribed by: MCKINLEY COLEY on 01/27/16 1535 Hydrocodone/Acetaminophen 1 Each Tablet, 1 EACH PO Q6H PRN for PAIN, #10 Ref 0 Prescribed by: NOEMY GAGNON on 06/19/16 1925 Hydrocodone/Acetaminophen 1 Each Tablet, 1 EACH PO Q6H PRN for PAIN-MODERATE TO SEVERE, #10 Prescribed by: NEELIMA YODER on 04/15/17 1115 Hydroxyzine HCl 25 Mg Tablet, 25 MG PO QID, (Reported) Indomethacin 50 Mg Capsule, #90 (Reported) Lorazepam 1 Mg Tablet, 1 MG PO BID, (Reported) Omeprazole 40 Mg Capsule.dr, #30 (Reported) Ondansetron 8 Mg Tab.rapdis, 8 MG PO Q6H PRN for NAUSEA, #10 Ref 0 Prescribed by: NOEMY GAGNON on 04/12/16 1750 Orphenadrine Citrate 100 Mg Tablet.sa, 100 MG PO BID, (Reported) Orphenadrine Citrate 100 Mg Tablet.er, #60 (Reported) Prednisone 20 Mg Tab, 40 MG PO DAILY, #10 Ref 0 Prescribed by: NOEMY GAGNON on 06/19/16 1855 Pregabalin 150 Mg Capsule, 150 MG PO BID, (Reported) Pregabalin 200 Mg Capsule, #60 (Reported) Constitutional: no symptoms reported EENTM: no symptoms reported Respiratory: no symptoms reported Cardiovascular: no symptoms reported Gastrointestinal: no symptoms reported Genitourinary: no symptoms reported : No Musculoskeletal: see HPI Skin: see HPI Psychiatric/Neurological: No Symptoms Reported Hematologic/Lymphatic: No Symptoms Reported Past Rttwnsd-Hjwmqp-Yudsws Hx Patient Social History Alcohol Use: Rarely Uses Number of Drinks Today: AA Alcohol Beverage of Choice: Beer Recreational Drug Use: No Smoking Status: Former Smoker Type Used: Cigarettes Former Smoker, Quit: May 19, 2000 Recent Foreign Travel: No Contact w/Someone Who Travel: No Recent Infectious Disease Expo: No Recent Hopitalizations: No Immunizations Up To Date Tetanus Booster (TDap): Less than 5yrs PED Vaccines UTD: No Date of Pneumonia Vaccine: Apr 19, 2013 Date of Influenza Vaccine: Mar 19, 2015 Seasonal Allergies Seasonal Allergies: Yes Surgeries History of Surgeries: Yes (D&C in 1999 and 2001) Surgeries: Adenoidectomy, Gallbladder, Hysterectomy, Tonsillectomy Respiratory History of Respiratory Disorde: No Cardiovascular History of Cardiac Disorders: No Neurological History of Neurological Disord: No Reproductive System Hx Reproductive Disorders: Yes (UTERINE FIBROIDS) Sexually Transmitted Disease: No HIV/AIDS: No SUPERVISOR HISTOLOGY History: Hysterectomy Genitourinary History of Genitourinary Disor: No Gastrointestinal History of Gastrointestinal Di: Yes Gastrointestinal Disorders: Gastroesophageal Reflux Musculoskeletal History of Musculoskeletal Dis: Yes (Fibromyalgia) Musculoskeletal Disorders: Fibromyalgia, Scoliosis, Chronic Back Pain Endocrine History of Endocrine Disorders: No Cancer History of Cancer: No Psychosocial History of Psychiatric Problem: Yes Behavioral Health Disorders: Anxiety, Depression Integumentary History of Skin or Integumenta: No Blood Transfusions History of Blood Disorders: No Family Medical History Significant Family History: No Pertinent Family Hx Physical Exam Vital Signs Vital Sign - Last 12Hours 04/15/17 09:15 Temp 98.0 Pulse 101 Resp 16 B/P (MAP) 129/93 Pulse Ox 96 Capillary Refill : Less Than 3 Seconds General Appearance: No Apparent Distress, WD/WN HEENT: PERRL/EOMI, Normal ENT Inspection Neck: Normal Inspection Extremity: Other (2 small lacerations on the left hand measuring less than 1 cm. Distal left fourth finger is ecchymotic, tender, and swollen. Distal sensation and capillary refill intact. Right fifth toe is tender, ecchymotic, and swollen) Neurologic/Psychiatric: Alert, Oriented x3, No Motor/Sensory Deficits, Normal Mood/Affect, cook jelly II-XII Norm as Tested Skin: Normal Color, Warm/Dry, Ecchymosis, Other (See above) Progress/Results/Core Measures Suspected Sepsis Recent Fever Within 48 Hours: No Infection Criteria Present: None New/Unexplained Altered Menta: No Sepsis Screen: No Definite Risk Sepsis Diagnosis: SIRS Temperature:98.0 Pulse: 101 Respiratory Rate: 16 Blood Pressure 129 /113 Mean: 118 Results/Orders My Orders Vital Signs/I&O Capillary Refill : Less Than 3 Seconds Blood Pressure Mean: 118 Progress Note : Progress Note Patient was advised to complete antibiotic prophylaxis. She was given chlorhexidine to scrub her wounds with at the sink in the exam room. She was up -to-date on her tetanus immunization and did not require a booster. She was offered a postop shoe for protection of her toe fracture but she prefers to wear her spiders. Because the toe fracture involving the articular surface, she was advised to follow-up with an orthopedic provider. Diagnostic Imaging Diagonstic Imaging: Xray Plain Films/CT/US/NM/MRI: hand Comments Left hand x-ray viewed by me and report reviewed. See report below: NAME: [facility] REC#: [id number] PT STATUS: [facility] ER : 1980 PHYSICIAN: NEELIMA DONOVAN MD ADMIT DATE: 04/15/17/ER Signed Date of Exam: 04/15/17 HAND, LEFT, 3 VIEWS INDICATION: Injury to left hand. TECHNIQUE: AP, oblique, and lateral views of the left hand were obtained. FINDINGS: No fracture or acute bony abnormality is seen. There is no radiopaque foreign body. A soft tissue laceration is noted between the first and second digits. IMPRESSION: No evidence of fracture or radiopaque foreign body. Dictated by: Dictated on workstation # [id number] Dict: 04/15/17 1003 Trans: 04/15/17 172 Interpreted by: SHOAIB HER MD Electronically signed by: SHOAIB HER MD 04/15/17 172 Diagonstic Imaging: Xray Comments Right foot x-ray viewed by me and report reviewed. See report below: NAME: [facility] REC#: [id number] PT STATUS: [facility] ER : 1980 PHYSICIAN: NEELIMA DONOVAN MD ADMIT DATE: 04/15/17/ER Signed Date of Exam: 04/15/17 FOOT, RIGHT, 3 VIEW Three views of the right foot. INDICATION: Injury and bruising to the fifth toe. FINDINGS: There is an intra-articular fracture through the head of the proximal phalanx of the little toe. There is mild displacement and impaction seen with depression and angulation noted at the articular surface of the head of the proximal phalanx. There is no other fracture. No subluxation or dislocation. IMPRESSION: Impacted minimally displaced intra-articular fracture of the head of the proximal phalanx of the right little toe. Dictated by: Dictated on workstation # [id number] Dict: 04/15/17 1006 Trans: 04/15/17 1021 Interpreted by: MARIA C BURNS MD Electronically signed by: MARIA C BURNS MD 04/15/17 1021 Departure Impression Impression: Primary Impression: Dog bite Qualified Codes: W54.0XXA - Bitten by dog, initial encounter Additional Impressions: Contusion of finger of left hand Qualified Codes: S60.042A - Contusion of left ring finger without damage to nail, initial encounter Toe fracture, right Qualified Codes: S92.511A - Displaced fracture of proximal phalanx of right lesser toe(s), initial encounter for closed fracture Laceration of left hand Qualified Codes: S61.412A - Laceration without foreign body of left hand, initial encounter Disposition: 01 HOME, SELF-CARE Condition: Improved Departure-Patient Inst. Decision time for Depature: 11:00 Referrals: [facility] (PCP/Family) Primary Care Physician Patient Instructions: Animal Bites (DC), Toe Fracture Add. Discharge Instructions: Protect your toe with a postoperative shoe or sliders. Avoid strenuous activity with the right foot until the fracture heals. Because the fracture involves the joint and is mildly displaced, I suggested follow-up with an orthopedic provider for monitoring. Use Tylenol (acetaminophen) for hydrocodone as prescribed for primary pain management. Avoid use of NSAIDs such as ibuprofen for the first couple of weeks as they may delay bone healing. Rest, elevation, and icing in 20 minute intervals should help with pain and swelling. Monitor your hand wounds for signs of infection including increasing swelling, increasing redness, puslike drainage, increasing pain, or fever. Return to care promptly. Notice these symptoms. Complete your antibiotic as prescribed. Take your antibiotic with food or milk to help prevent stomach upset. All discharge instructions reviewed with patient and/or family. Voiced understanding. Scripts Hydrocodone/Acetaminophen (Hydrocodon -Acetaminophen 5-325) 1 Each Tablet 1 EACH PO Q6H Y for PAIN-MODERATE TO SEVERE, #10 TAB Prov: NEELIMA DONOVAN MD 04/15/17 Amoxicillin/Potassium Clav (Augmentin 500-125 Tablet) 1 Each Tablet 1 EACH PO BID, #10 TAB Prov: NEELIMA DONOVAN MD 04/15/17 NEELIMA DONOVAN MD Apr 15, 2017 11:14
[2017-04-15] MEDS ORDERED: HYDR-3812 PO (11:15)
[2017-04-15] MEDS ORDERED: AMOX-355 PO (11:15)
[2017-04-15 11:22] VITALS: BP 129/113
== END 2017-04-15 11:22 | disposition home or self-care (01) ==
LOC: EDUNIT# 09:05 → ER 09:07
DX: S92.511A Displaced fracture of proximal phalanx of right lesser toe(s), initial encounter for closed fracture (principal); S61.412A Laceration without foreign body of left hand, initial encounter; S60.042A Contusion of left ring finger without damage to nail, initial encounter; M41.20 Other idiopathic scoliosis, site unspecified; F41.9 Anxiety disorder, unspecified; F32.9 Major depressive disorder, single episode, unspecified; Z90.710 Acquired absence of both cervix and uterus; Z87.891 Personal history of nicotine dependence; Z90.89 Acquired absence of other organs; Z87.448 Personal history of other diseases of urinary system; W54.0XXA Bitten by dog, initial encounter
CPT/HCPCS: 73130; 73630; 99283

== ENCOUNTER 2017-09-04 16:00 | Outpatient (CLI) | payer SELFPAY ==
[~2017-09-04] VITALS: Ht 170.2 cm; Wt 104.3 kg
[~2017-09-04 16:00] MED LIST changes: +ACHD5005 PO; +AMOX-355 PO; -CYPR4TAB; +CYPR4TAB41; -HYDR-3812 PO; -INDO50CA; +INDO50CA11
[2017-09-04] MEDS ORDERED: ONDN4T PO (16:11)
[2017-09-04] MEDS ORDERED: PREG200C PO (16:11)
[2017-09-04] MEDS ORDERED: ORPH100T PO (16:11)
[2017-09-04] MEDS ORDERED: HYDR-3816 PO (16:11)
[2017-09-04] MEDS ORDERED: PANT40TA3 PO (16:11)
== END 2017-09-04 16:20 ==
LOC: PREOP 16:00
PROVIDERS: ATTEND Surgery
DX: Z01.818 Encounter for other preprocedural examination (principal); R13.10 Dysphagia, unspecified

== ENCOUNTER 2018-05-23 20:41 | Emergency (ER) | payer SELFPAY, OTHER | END 2018-05-24 00:15 | disposition home or self-care (01) | LOC: ER 05-24 00:15 ==

== ENCOUNTER 2019-01-12 05:39 | Outpatient (CLI) | payer SELFPAY ==
[~2019-01-12] VITALS: Ht 170.2 cm; Wt 101.2 kg
[~2019-01-12 05:39] MED LIST changes: -BENZ-13 PO; +BENZ100C18 PO; +DICY20TA10 PO; -DULO60CA58; +DULO60CA59; +HYDR-3816 PO; +HYOS0.1283 SL; +ONDN4T PO; +PANT40TA3 PO; +PREG200C PO; +PROM25SU43 RC
[2019-01-12] MEDS ORDERED: PROM25TA14 PO (10:45)
[2019-01-12] MEDS ORDERED: HYDR50CA PO (10:45)
[2019-01-12] MEDS ORDERED: OXCA300T4 PO ×2 (10:45)
[2019-01-12] MEDS ORDERED: HYDR50CA3 PO (10:45)
[2019-01-12] MEDS ORDERED: SUCR1TAB36 PO (10:45)
== END 2019-01-12 10:47 | disposition home or self-care (01) ==
LOC: PREOP 05:39
PROVIDERS: ATTEND Surgery
DX: Z01.818 Encounter for other preprocedural examination (principal)

== ENCOUNTER 2019-01-19 07:06 | Day surgery (SDC) | payer OTHER ==
[~2019-01-19] VITALS: Ht 170.2 cm; Wt 101.2 kg
[~2019-01-19 07:06] MED LIST changes: +HYDR50CA PO; +HYDR50CA3 PO; +OXCA300T4 PO; +PROM25TA14 PO; +SUCR1TAB36 PO
[2019-01-19] MEDS ORDERED: LACTATED RINGERS 1,000 ML IV ONE (07:42)
[2019-01-19] MEDS ORDERED: LACTATED RINGERS 1,000 ML IV STA (07:53)
[2019-01-19 08:00] VITALS: BP 123/79
[2019-01-19] MEDS ORDERED: HURRICAINE EXT TUBE (BENZOCAINE) XX PRN (08:00)
[2019-01-19] MEDS ORDERED: MIDAZOLAM 2 MG/2 ML (VERSED) VIAL ONE (08:22)
[2019-01-19] MEDS ORDERED: proPOfol 200 MG/20 ML (DIPRIVAN) VIAL IV ONE (08:22)
[2019-01-19] MEDS ORDERED: HURRICAINE EXT TUBE (BENZOCAINE) ONE (08:24)
[2019-01-19] MEDS ORDERED: PROMETHAZINE INJ 25 MG/ML (PHENERGAN) AMP ONE (08:35)
[2019-01-19] MEDS ORDERED: PROMETHAZINE INJ 25 MG/ML (PHENERGAN) AMP IVP ONE (09:00)
[2019-01-19 09:25] VITALS: BP 128/80
--- NOTE | 2019-01-19 09:28 | Progress Note-Post Operative ---
Post-Operative Progess Note Surgeon (s)/[employer] Paralegal (s) Surgeon CAROLE LEAL DO [employer] Paralegal: na Pre-Operative Diagnosis GERD, Hx of Barretts, difficutly swallowing, Hiatal Hernia Post-Operative Diagnosis Hiatal hernia, Reflux esophagitis, barretts Procedure & Operative Findings Date of Procedure 01/19/19 Procedure Performed/Findings EGD with Biopsies Anesthesia Type per TEST AUTOMATION ARCHITECT Estimated Blood Loss Estimated blood loss (mL): none Specimens/Packing Specimens Removed antrum, ge junction CAROLE LEAL DO Jan 19, 2019 09:28
[2019-01-19 09:30] VITALS: BP 130/8
--- NOTE | 2019-01-19 09:31 | Discharge Inst-Simple/Standard ---
Discharge Inst-Standard Patient Instructions/Follow Up Plan of Care/Instructions/FU: 2 weeks Marilee Activity as Tolerated: Yes Discharge Diet: Regular Diet CAROLE LEAL DO Jan 19, 2019 09:31
[2019-01-19 09:42] VITALS: BP 130/80
[2019-01-19 10:05] VITALS: BP 113/72
--- NOTE | 2019-01-19 10:16 | Anesthesia-General Post-Op ---
MAC Patient Condition Mental Status/LOC: Same as Preop Cardiovascular: Satisfactory Nausea/Vomiting: Absent Respiratory: Satisfactory Pain: Controlled Complications: Absent Post Op Complications Complications None Follow Up Care/Instructions Patient Instructions None needed. Anesthesiology Discharge Order Discharge Order Patient is doing well, no complaints, stable vital signs, no apparent adverse anesthesia problems. No complications reported per nursing. SREEDHAR COELLO CRNA Jan 19, 2019 10:16
--- NOTE | 2019-01-19 14:50 | OPERATIVE REPORT ---
DATE OF SERVICE: 01/19/2019 PREOPERATIVE DIAGNOSES: Gastroesophageal reflux disease, history of Truong's, difficulty swallowing, hiatal hernia. POSTOPERATIVE DIAGNOSES: Hiatal hernia, reflux esophagitis, Truong's. PROCEDURE: EGD with biopsy. SURGEON: Carole Hunt DO ANESTHESIA: Per STONE SPLITTER. ESTIMATED BLOOD LOSS: None. COMPLICATIONS: None. INDICATIONS: The patient is a 38-year-old female with a history of Truong's and some difficulty swallowing hiatal hernia. She understands risks and benefits of procedure and wished to proceed with procedure. Consent was signed in the chart. DESCRIPTION OF PROCEDURE: The patient was taken to the endoscopy suite, placed in left lateral recumbent position. Timeout was performed. Scope was inserted in mouth, down the esophagus, stomach and into the duodenum without difficulty. There were no polyps, masses or ulcerations in the duodenum. Scope was slowly retracted back into the stomach where it was further insufflated. Slight erythematous changes present. No polyps, masses or ulcerations. Biopsy of the antrum was obtained. Scope was retroflexed noting approximately 3 cm hiatal hernia. Scope was returned to its normal position, slowly withdrawn to the distal esophagus. Some changes of reflux esophagitis present. Multiple biopsies were obtained from the GE junction. Short segment of Truong's approximately 1 cm in length. A total of four biopsies were taken from this area. The scope was then slowly retracted back to completely removed noting no other pathology. RECOMMENDATIONS: The patient will follow up in the office in 2 weeks to discuss biopsy results. We consider medication changes, but will not make any changes at this time. Further recommendations pending biopsy results. Job ID: [id number] DocumentID: [id number] Dictated Date: 01/19/2019 09:48:14 Production Finisher Date: 01/19/2019 14:49:26 Dictated By: CAROLE HUNT DO
== END 2019-01-19 10:05 | disposition home or self-care (01) ==
LOC: ENDO 07:06
PROVIDERS: ATTEND Surgery
DX: K21.0 Gastro-esophageal reflux disease with esophagitis (principal); K22.719 Barrett's esophagus with dysplasia, unspecified; K44.9 Diaphragmatic hernia without obstruction or gangrene; K31.89 Other diseases of stomach and duodenum; J30.9 Allergic rhinitis, unspecified; F32.9 Major depressive disorder, single episode, unspecified; Z88.8 Allergy status to other drugs, medicaments and biological substances; Z79.899 Other long term (current) drug therapy; Z87.891 Personal history of nicotine dependence; Z90.710 Acquired absence of both cervix and uterus; Z90.89 Acquired absence of other organs

== ENCOUNTER 2020-01-20 20:13 | Inpatient (IN) | payer SELFPAY ==
[~2020-01-20] VITALS: Ht 167 cm; Wt 95.6 kg
[~2020-01-20 20:13] MED LIST changes: +ACHYD1T PO; +HYDR-34 PO; -HYDR-3816 PO; -HYDR-3820 PO; -INDO50CA11; +INDO50CA82; +OMEP40CA27; -OMEP40CA36; -TRAM50TA2 PO; +TRM50T PO
[2020-01-20] MEDS ORDERED: NS IV 1000 ML 1,000 ML IV SCH (20:21)
[2020-01-20] MEDS ORDERED: NS IV 1000 ML 1,000 ML IV ONE (20:21)
[2020-01-20] MEDS ORDERED: ONDANSETRON 4 MG/2 ML (SDV) Z0FRAN IVP ONE (20:30)
--- NOTE | 2020-01-20 20:34 | ED Psychosocial ---
General Stated Complaint: OVERDOSE Source: patient, EMS Exam Limitations: clinical condition (LY LEACH) History of Present Illness Date Seen by Provider: Jan 20, 2020 Time Seen by Provider: 20:12 Initial Comments Patient presents to the ER by EMS from home with chief complaint of nausea vomiting, ingestion of a handful of pills and suicidal ideation per family/friends. Patient states she took them about one hour ago, approximately 1900. Friends thinks maybe she took a muscle relaxer. She has been vomiting for EMS. She does answer questions but she is fairly uncooperative. She does not answer what she took. Family calls back to the ER and clarifies that the patient took a muscle relaxant, amitriptyline, Latuda, unknown amounts. (LY LEACH) Allergies and Home Medications Allergies Coded Allergies: tramadol (Verified Allergy, Unknown, 06/19/16) codeine (Verified Adverse Reaction, Mild, NAUSEA, 01/26/15) Uncoded Allergies: SEANSONAL ENVIRONMENTAL (Allergy, Mild, 01/17/14) Home Medications Duloxetine HCl 60 Mg Capsule.dr, 60 MG PO BID, (Reported) Hydroxyzine Pamoate 50 Mg Capsule, 100 MG PO DAILY, (Reported) take 2 (50mg) Tab Hydroxyzine Pamoate 50 Mg Capsule, 200 MG PO HS, (Reported) take 2 (50mg) Tab Orphenadrine Citrate 100 Mg Tablet.er, 100 MG PO BID, (Reported) Oxcarbazepine 300 Mg Tablet, 300 MG PO DAILY, (Reported) Oxcarbazepine 300 Mg Tablet, 600 MG PO HS, (Reported) take 2 (300mg) tabs Pantoprazole Sodium 40 Mg Tablet.dr, 40 MG PO DAILY, (Reported) Promethazine HCl 25 Mg Tablet, 25 MG PO Q6H PRN for NAUSEA/VOMITING, (Reported) Sucralfate 1 Gm Tablet, 1 GM PO QID PRN for HEARTBURN, (Reported) Patient Home Medication List Home Medication List Reviewed: Yes (LY LEACH) Review of Systems Constitutional: see HPI (, patient unable to contribute to review of systems. Family contributes what little areas) Respiratory: No cough, No short of breath Cardiovascular: No chest pain, No edema Gastrointestinal: No constipation, No diarrhea; nausea, vomiting (LY LEACH) All Other Systems Reviewed Negative Unless Noted: Yes (LY LEACH) Past Pjdvthg-Cegetv-Jtcqnq Hx Patient Social History Alcohol Use: Regular Use Alcohol Beverage of Choice: Beer Recreational Drug Use: Yes Smoking Status: Current Everyday Smoker Type Used: Cigarettes Former Smoker, Quit: May 19, 2000 Recent Hopitalizations: No (LY LEACH) Immunizations Up To Date Tetanus Booster (TDap): Less than 5yrs PED Vaccines UTD: No Date of Pneumonia Vaccine: Apr 19, 2013 Date of Influenza Vaccine: Mar 19, 2015 (LY LEACH) Seasonal Allergies Seasonal Allergies: Yes (LY LEACH) Past Medical History Surgeries: Yes (D&C in 1999 and 2001; HYST/OVARIES INTACT) Adenoidectomy, Gallbladder, Hysterectomy, Tonsillectomy Respiratory: No Cardiac: No Neurological: No Reproductive Disorders: No BUTTONER History: Hysterectomy Sexually Transmitted Disease: No HIV/AIDS: No Genitourinary: No Gastrointestinal: Yes (DYSPHAGIA) Gastroesophageal Reflux, Truong's Esophagus Musculoskeletal: Yes Fibromyalgia, Scoliosis, Chronic Back Pain Endocrine: No HEENT: No Cancer: No Psychosocial: Yes Anxiety, Depression Integumentary: No Blood Disorders: No (LY LEACH) Family Medical History No Pertinent Family Hx (LY LEACH) Physical Exam Vital Signs - First Documented 01/20/20 01/20/20 01/21/20 20:45 22:16 01:00 Temp 35.0 Pulse 93 Resp 20 B/P (MAP) 120/90 (100) Pulse Ox 100 O2 Delivery Mechanical Ventilator O2 Flow Rate 100.00 FiO2 100 (LIDYA PENA APRN) Capillary Refill : (LY LEACH) Height, Weight, BMI Height: 5'7.00" Weight: 223lbs. 0.0oz. [id number]; 34.9 BMI Method:Stated General Appearance: severe distress, obese HEENT: PERRL/EOMI, normal ENT inspection Neck: full range of motion, supple, normal inspection Respiratory: lungs clear, normal breath sounds, no respiratory distress, no accessory muscle use Cardiovascular: normal peripheral pulses, regular rate, rhythm Peripheral Pulses: 2+ Radial Pulses (R), 2+ Radial Pulses (L) Gastrointestinal: normal bowel sounds, non tender, soft Extremities: normal range of motion, non-tender, normal capillary refill Neurologic/Psychiatric: alert, other (anxious, vomiting, not entirely cooperative. Nonbelligerent) Appearance/Memory: disheveled, impaired insight Behavior/Eye Contact: good eye contact, uncooperative Thoughts/Hallucinations: no apparent hallucination; No auditory hallucinations, No delusions Skin: normal color, warm/dry (LY LEACH) Procedures/Interventions Chest Tube : Chest Tube Position: Right Chest Tube Location: Anterior Chest Size of [place] Tube (cm): 1 (13 danish) Chest Tube Procedure: betadine prep, sterile drapes applied, sterile dressing applied Anesthesia: 1% Lidocaine Volume Anesthetic (ccs): 2 De Jesus of Air [place]: No Number of Attempts: 1 Progress able to syringe aspirate 180cc air (LIDYA PENA APRN) Reason for Intubation: failure to protect airway secondary to drug overdose Date of ETT Placement: Jan 20, 2020 Time of ETT Placement: 21:34 Intubation Method: orotracheal Tube Size: 7.5 Medications: Etomidate (40 mg), Rocuronium (50 mg) Positive End Tide CO2: Yes (colorimetric paper color change) Breath Sounds after Intubation: right greater than left Intubation Complications: other (oxygen saturation stayed 95 200%. No emesis seen.) Post Intubation Xray: Yes cannot see the radiopaque line. We did withdraw the ET tube until we obtained symmetric breath sounds left versus right. Cannot see the ET tube on the chest x-ray. No apparent pneumothorax on initial x-ray. Subsequent x-ray showed pneumothorax thought to be from possible barotrauma from a right mainstem intubation. Ventilator started tidal volume 470 mL, PEEP 5, FiO2 of 100%, respirations of 22. (LY LEACH) Progress/Results/Core Measures Results/Orders Lab Results Laboratory Tests Test 01/20/20 20:31 01/20/20 20:35 01/20/20 20:40 01/21/20 03:40 Range/Units Urine Color YELLOW Urine Clarity CLEAR Urine pH 6.0 5-9 Urine Specific [place] 1.025 H 1.016-1.022 Urine Protein 2+ H NEGATIVE Urine Glucose (UA) NEGATIVE NEGATIVE Urine Ketones NEGATIVE NEGATIVE Urine Nitrite NEGATIVE NEGATIVE Urine Bilirubin NEGATIVE NEGATIVE Urine Urobilinogen 0.2 < = 1.0 MG/DL Urine Leukocyte Esterase 2+ H NEGATIVE Urine RBC (Auto) TRACE-I NEGATIVE Urine RBC 0-2 /HPF Urine WBC 50-100 H /HPF Urine Crystals NONE /LPF Urine Amorphous Sediment FEW [place] URATES H /LPF Urine Bacteria MODERATE H /HPF Urine Casts PRESENT /LPF Urine Hyaline Casts 0-2 H /LPF Urine Mucus NEGATIVE /LPF Urine Culture Indicated YES Urine Test NEGATIVE NEGATIVE Urine Opiates Screen NEGATIVE NEGATIVE Urine Oxycodone Screen NEGATIVE NEGATIVE Urine Methadone Screen NEGATIVE NEGATIVE Urine Propoxyphene Screen NEGATIVE NEGATIVE Urine Barbiturates Screen NEGATIVE NEGATIVE Ur Tricyclic Antidepressants Screen NEGATIVE NEGATIVE Urine Phencyclidine Screen NEGATIVE NEGATIVE Urine Amphetamines Screen NEGATIVE NEGATIVE Urine Methamphetamines Screen NEGATIVE NEGATIVE Urine Benzodiazepines Screen POSITIVE H NEGATIVE Urine Cocaine Screen NEGATIVE NEGATIVE Urine Cannabinoids Screen POSITIVE H NEGATIVE White Blood Count 16.0 H 16.7 H 4.3-11.0 10^3/uL Red Blood Count 3.96 L 3.97 L 4.35-5.85 10^6/uL Hemoglobin 11.4 L 11.3 L 11.5-16.0 G/DL Hematocrit 32 L 32 L 35-52 % Mean Corpuscular Volume 82 81 80-99 FL Mean Corpuscular Hemoglobin 29 28 25-34 PG Mean Corpuscular Hemoglobin Concent 35 35 32-36 G/DL Red Cell Distribution Width 14.0 14.1 10.0-14.5 % Platelet Count 300 299 130-400 10^3/uL Mean Platelet Volume 9.5 9.4 7.4-10.4 FL Neutrophils (%) (Auto) 80 H 78 H 42-75 % Lymphocytes (%) (Auto) 12 16 12-44 % Monocytes (%) (Auto) 7 6 0-12 % Eosinophils (%) (Auto) 0 0 0-10 % Basophils (%) (Auto) 0 0 0-10 % Neutrophils # (Auto) 12.8 H 13.1 H 1.8-7.8 X 10^3 Lymphocytes # (Auto) 2.0 2.6 1.0-4.0 X 10^3 Monocytes # (Auto) 1.1 H 1.0 0.0-1.0 X 10^3 Eosinophils # (Auto) 0.1 0.0 0.0-0.3 10^3/uL Basophils # (Auto) 0.0 0.0 0.0-0.1 10^3/uL Neutrophils % (Manual) 85 % Lymphocytes % (Manual) 11 % Monocytes % (Manual) 4 % Smudge Cells SLIGHT Blood Morphology Comment NORMAL Sodium Level 136 136 135-145 MMOL/L Potassium Level 3.2 L 3.3 L 3.6-5.0 MMOL/L Chloride Level 112 H 107 98-107 MMOL/L Carbon Dioxide Level 9 *L 16 L 21-32 MMOL/L Anion Gap 15 H 13 5-14 MMOL/L Blood Urea Nitrogen 9 8 7-18 MG/DL Creatinine 0.87 0.72 0.60-1.30 MG/DL Estimat Glomerular Filtration Rate > 60 > 60 BUN/Creatinine Ratio 10 11 Glucose Level 134 H 114 H 70-105 MG/DL Calcium Level 7.9 L 8.5 8.5-10.1 MG/DL Corrected Calcium 8.1 L 8.4 L 8.5-10.1 MG/DL Total Bilirubin 0.2 0.2 0.1-1.0 MG/DL Aspartate Amino Transf (AST/SGOT) 24 20 5-34 U/L Alanine Aminotransferase (ALT/SGPT) 20 21 0-55 U/L Alkaline Phosphatase 52 57 40-136 U/L Total Protein 6.5 6.5 6.4-8.2 GM/DL Albumin 3.8 4.1 3.2-4.5 GM/DL Salicylates Level < 5.0 L 5.0-20.0 MG/DL Acetaminophen Level < 10 L 10-30 UG/ML Serum Alcohol < 10 <10 MG/DL Blood Gas Puncture Site RIGHT RADIAL Blood Gas Patient Temperature 35.0 Arterial Blood pH 7.42 7.37-7.43 Arterial Blood Partial Pressure CO2 30 L 35-45 MMHG Arterial Blood Partial Pressure O2 65 L 79-93 MMHG Arterial Blood HCO3 19 L 23-27 MMOL/L Arterial Blood Total CO2 20.4 L 21.0-31.0 MMOL/L Arterial Blood Oxygen Saturation 95 94-100 % Arterial Blood Base Excess -4.7 L -2.5-2.5 MMOL/L Scooby Test YES-POS Blood Gas Ventilator Setting NO Blood Gas Inspired Oxygen NOT INDIACATED Phosphorus Level 3.2 2.3-4.7 MG/DL Magnesium Level 2.0 1.6-2.4 MG/DL Test 01/21/20 04:27 01/21/20 07:07 Range/Units Blood Gas Puncture Site RIGHT RADIAL Blood Gas Patient Temperature 36.4 Arterial Blood pH 7.39 7.37-7.43 Arterial Blood Partial Pressure CO2 36 35-45 MMHG Arterial Blood Partial Pressure O2 134 H 79-93 MMHG Arterial Blood HCO3 22 L 23-27 MMOL/L Arterial Blood Total CO2 22.7 21.0-31.0 MMOL/L Arterial Blood Oxygen Saturation 98 94-100 % Arterial Blood Base Excess -2.7 L -2.5-2.5 MMOL/L Scooby Test YES-POS Blood Gas Ventilator Setting YES Blood Gas Inspired Oxygen 80% Lactic Acid Level 1.38 0.50-2.00 MMOL/L (LIDYA PENA APRN) Vital Signs/I&O 01/21/20 01/21/20 01/21/20 01/21/20 00:25 00:48 00:59 01:00 Temp 36.0 Pulse 59 61 61 60 Resp B/P (MAP) 116/86 (123) 115/79 Pulse Ox 100 100 FiO2 100 01/21/20 01/21/20 01/21/20 01/21/20 01:00 01:00 01:15 01:30 Temp 35.7 35.9 Pulse 60 59 60 Resp 22 B/P (MAP) 112/69 (83) 127/82 (97) 121/78 (92) Pulse Ox 100 100 100 O2 Delivery Mechanical Ventilator Mechanical Ventilator Mechanical Ventilator Me chanical Ventilator O2 Flow Rate 100.00 100.00 100.00 FiO2 100 01/21/20 01/21/20 01/21/20 01/21/20 01:45 02:00 02:00 02:15 Temp 35.9 36.0 Pulse 59 62 B/P (MAP) 118/76 (90) 119/78 (92) Pulse Ox 100 100 O2 Delivery Mechanical Ventilator Mechanical Ventilator Mechanical Ventilator O2 Flow Rate 100.00 80.00 80.00 FiO2 80 01/21/20 01/21/20 01/21/20 01/21/20 02:45 03:10 04:00 04:05 Temp 36.1 36.3 Pulse 58 61 B/P (MAP) 104/70 (81) 108/69 127/82 (97) Pulse Ox 100 99 80 O2 Delivery Mechanical Ventilator Mechanical Ventilator Mechanical Ventilator O2 Flow Rate 80.00 80.00 01/21/20 01/21/20 01/21/20 01/21/20 04:31 04:36 04:37 04:50 Pulse 60 Resp 22 B/P (MAP) 120/75 Pulse Ox 98 O2 Delivery Mechanical Ventilator O2 Flow Rate 60.00 FiO2 60 01/21/20 01/21/20 01/21/20 01/21/20 05:00 05:25 06:00 07:00 Temp 36.4 36.5 Pulse 61 59 61 Resp 22 22 22 B/P (MAP) 107/66 (80) 104/67 (79) 114/78 (90) Pulse Ox 98 97 97 O2 Delivery Mechanical Ventilator Mechanical Ventilator Mechanical Ventilator Mechanical Ventilator O2 Flow Rate 60.00 40.00 40.00 40.00 01/21/20 01/21/20 01/21/20 01/21/20 07:00 08:00 08:00 08:24 Pulse 87 68 68 Resp 21 B/P (MAP) 97/61 (73) 98/61 Pulse Ox 94 O2 Delivery Mechanical Ventilator Mechanical Ventilator O2 Flow Rate 40.00 01/21/20 00:00 Intake Total 1000 ml Balance 1000 ml (LIDYA PENA APRN) Progress Progress Note #1: Time: 21:21 Progress Note ABG shows an okay pH but she has metabolic acidosis on the CMP is likely due to her ingestion. Benzos come back on as well as opiates and I suspect she will only get further obtunded. At this point she is no longer answering questions or cooperating will not wear oxygen so we are going to intubate her to protect her airway. Respiratory therapy has been summons. Plan to do RSI with etomidate 20 mg and rocuronium 50 mg. Unable to complete an EKG She will not hold still. She is not talking only moaning. GCS 8-9, anticipating worsening. Progress Note #2: Time: 22:30 Progress Note Despite difficulty visualizing the radiopaque line on the ET tube and the initial right mainstem which apparently resulted in a pneumothorax the patient was with good vital signs, well sedated and oxygenating 98-100%. Chest tube was in place. (LY LEACH) Initial ECG Impression Date: Jan 20, 2020 Initial ECG Impression Time: 22:59 Initial ECG Rate: 63 Initial ECG Rhythm: Normal Sinus Initial ECG Intervals: QT (535) Initial ECG Impression: Normal, Nonspecific Changes Initial ECG Comparisson: No Previous ECG Available Comment Normal sinus rhythm without clinically relevant ST elevation or depression. (LY LEACH) Diagnostic Imaging Diagonstic Imaging: Xray Plain Films/CT/US/NM/MRI: chest Comments Cannot see the radiopaque line from the ET tube. OG tube appears to be in good position. Reviewed: Reviewed by Me Diagonstic Imaging: Xray Plain Films/CT/US/NM/MRI: chest Comments Pneumothorax on the right side; non-tension pneumothorax. Reviewed: Reviewed by Me Diagonstic Imaging: Xray Plain Films/CT/US/NM/MRI: chest Comments Cannot see the radiopaque line of the ET tube. OG has been subscleral removed. Right lung has reinflated after interval placement of Thoravent. Reviewed: Reviewed by Me (LY LEACH) Critical Care Note Critical Care Start Time: 21:00 Stop Time: 22:30 Total Time (minutes) 90 m Progress Patient was having difficult time maintaining oxygen sats and had decreased breath sounds on the left side so the ET tube was withdrawn from 21-19. Breath sounds on the left side were better and symmetric and oxygen sats were still poor. Chest x-ray revealed pneumothorax on the right side without tension pneumothorax. See procedure note for thoravent placement. Could not see the radiopaque line on the ET tube so we removed the OG and shot another image. The chest x-ray could still not see a radiopaque line and I suspect that there is a manufacturing defect with the ET tube however lungs are better inflated after placement of the thoravent and oxygen sats are 98%. She is stable so we will not risk doing a tube change at this time. She has 2 large bore IV access in her periphery and does not need a central line at this time. She is adequately sedated on propofol. (LY LEACH) Departure Communication (Admissions) Time/Spoke to Admitting Phy: 22:40 Discussed the case with Dr. Reyes and she agrees to admit the patient to the ICU intubated on propofol. She agrees with Rocephin for the apparent UTI. (LY LEACH) Impression Primary Impression: Drug overdose Qualified Codes: T50.902A - Poisoning by unspecified drugs, medicaments and biological substances, intentional self-harm, initial encounter Additional Impressions: Suicide attempt by adequate means Qualified Codes: X83.8XXA - Intentional self-harm by other specified means, initial encounter UTI (urinary tract infection) Qualified Codes: N30.00 - Acute cystitis without hematuria Disposition: ADMITTED INPATIENT Condition: Critical Admissions Decision to Admit Reason: Admit from ER (General) Decision to Admit/Date: Jan 20, 2020 Time/Decision to Admit Time: 20:50 (LY LEACH) Departure-Patient Inst. Referrals: [facility] [place]) Primary Care Physician Focused Exam Sepsis Stage: Ruled Out Reason for ruling out sepsis: UTI is not the source of her presentation. Drug overdose is the source. (LY LEACH) Lactate Level 01/21/20 07:07: Lactic Acid Level 1.38 (LIDYA PENA APRN) Height, Weight, BMI Height: 5'7.00" Weight: 223lbs. 0.0oz. 101.304794cz; 37.00 BMI Method:Stated (LY LEACH) Lactic Acid Level Laboratory Tests Test 01/21/20 07:07 Lactic Acid Level 1.38 MMOL/L (0.50-2.00) (LIDYA PENA APRN) LY LEACH Jan 20, 2020 20:34 LIDYA PENA APRN Jan 21, 2020 10:52
[2020-01-20 20:37] LABS: BILIRUBIN,URINE NEGATIVE (NEGATIVE); CLARITY,URINE CLEAR; COLOR,URINE YELLOW; GLUCOSE, URINE (UA) NEGATIVE (NEGATIVE); KETONES,URINE NEGATIVE (NEGATIVE); LEUKOCYTE ESTERASE ,URINE 2+ (NEGATIVE); NITRITE,URINE NEGATIVE (NEGATIVE); PROTEIN,URINE 2+ (NEGATIVE)
[2020-01-20 20:54] LABS: ABG BASE EXCESS -4.7 MMOL/L (-2.5-2.5); ABG OXYGEN SATURATION 95 % (94-100); ABG PCO2 30 MMHG (35-45); ABG PH 7.42 (7.37-7.43); ABG PO2 65 MMHG (79-93); ABG TCO2 20.4 MMOL/L (21.0-31.0); ALLENS TEST YES-POS
[2020-01-20 20:55] LABS: INSPIRED O2 NOT INDIACATED; VENTILATOR NO
[2020-01-20 20:55] LABS: BASOPHILS % (AUTO) 0 % (0-10); EOSINOPHILS # (AUTO) 0.1 10^3/uL (0.0-0.3); EOSINOPHILS % (AUTO) 0 % (0-10); HEMATOCRIT 32 % (35-52); HEMOGLOBIN 11.4 G/DL (11.5-16.0); LYMPHOCYTES % (AUTO) 12 % (12-44); MEAN CORPUSCULAR HEMOGLOBIN 29 PG (25-34); MEAN CORPUSCULAR HGB CONC 35 G/DL (32-36); MEAN CORPUSCULAR VOLUME 82 FL (80-99); MEAN PLATELET VOLUME 9.5 FL (7.4-10.4); MONOCYTES # (AUTO) 1.1 X 10^3 (0.0-1.0); MONOCYTES % (AUTO) 7 % (0-12); NEUTROPHILS # (AUTO) 12.8 X 10^3 (1.8-7.8); NEUTROPHILS % (AUTO) 80 % (42-75); PLATELET COUNT 300 10^3/uL (130-400)
[2020-01-20 21:00] LABS: ALBUMIN 3.8 GM/DL (3.2-4.5); CHLORIDE 112 MMOL/L (98-107); POTASSIUM 3.2 MMOL/L (3.6-5.0); SODIUM 136 MMOL/L (135-145)
[2020-01-20 21:01] LABS: CALCIUM 7.9 MG/DL (8.5-10.1)
[2020-01-20 21:02] LABS: GLUCOSE 134 MG/DL (70-105)
[2020-01-20 21:03] LABS: RBC,URINE 0-2 /HPF
[2020-01-20 21:03] LABS: TOTAL PROTEIN 6.5 GM/DL (6.4-8.2)
[2020-01-20 21:04] LABS: BILIRUBIN,TOTAL 0.2 MG/DL (0.1-1.0)
[2020-01-20 21:04] LABS: BACTERIA,URINE MODERATE /HPF; WBC,URINE 50-100 /HPF
[2020-01-20 21:05] LABS: AMORPHOUS SEDIMENT,UR FEW AMOR URATES /LPF
[2020-01-20 21:06] LABS: HYALINE CASTS, URINE 0-2 /LPF
[2020-01-20 21:06] LABS: ALKALINE PHOSPHATASE 52 U/L (40-136); CREATININE SERUM 0.87 MG/DL (0.60-1.30); GFR ESTIMATED > 60
[2020-01-20 21:07] LABS: CARBON DIOXIDE 9 MMOL/L (21-32)
[2020-01-20 21:08] LABS: BUN/CREATININE RATIO 10
[2020-01-20 21:09] LABS: ALANINE AMINOTRANSFERASE 20 U/L (0-55); SALICYLATE < 5.0 MG/DL (5.0-20.0)
[2020-01-20 21:12] LABS: AMPHETAMINE SCREEN, URINE NEGATIVE (NEGATIVE); BENZODIAZEPINES SCREEN URINE POSITIVE (NEGATIVE); COCAINE SCREEN URINE NEGATIVE (NEGATIVE)
[2020-01-20 21:13] LABS: BARBITURATE SCREEN URINE NEGATIVE (NEGATIVE); CANNABINOID SCREEN, URINE POSITIVE (NEGATIVE); METHADONE STAT NEGATIVE (NEGATIVE); METHAMPHETAMINE SCREEN URINE S NEGATIVE (NEGATIVE); OPIATE SCREEN URINE NEGATIVE (NEGATIVE); OXYCODONE STAT NEGATIVE (NEGATIVE); PROPOXYPHENE STAT NEGATIVE (NEGATIVE); TRICYCLIC ANTIDEPRESSANTS SCRE NEGATIVE (NEGATIVE)
[2020-01-20 21:19] LABS: ACETAMINOPHEN < 10 UG/ML (10-30)
--- NOTE | 2020-01-20 21:25 | NUR ---
RT STAFF, GERARDO LEACH AND RASHARD RN IN ROOM FOR INTUBATION. AT 2133 7.0 ET TUBE WAS PLACED BY DR LEACH 20 AT THE TEETH ON FIRST ATTEMPT POSITIVE COLOR CHANGE NOTED TO ETO2 MONITOR. OG INSERTED BY GERARDO AT 2139. XRAY OBTAINED ORDER TO PULL TUBE BACK TO [address] LEACH. AT 2213 LIDYA LEACH, RASHARD RN, RT STAFF AND GERARDO TO ROOM FOR THOROVENT PLACEMENT D/T PNUMOTHORAX. DEVICE IS PLACED BY LIDYA PENA APRN AND HOOKED TO LOW SUCTION.
--- NOTE | 2020-01-20 21:25 | NUR ---
RSI BOX PULLED FOR THIS INTUBATION 2126 20MG ETOMIDATE GIVEN BY GERARDO RUTLEDGE 2130 20 MG ETOMIDATE GIVEN BY RASHARD RN 2131 50MG ROCURONIUM GIVEN BY THIS RN 2133 ET TUBE PLACED BY HAYLEE
[2020-01-20] MEDS ORDERED: PROPOFOL DRIP (ICU) 100 ML IV ONE (21:30)
[2020-01-20 21:32] LABS: LYMPHOCYTES % (MANUAL) 11 %; MONOCYTES % (MANUAL) 4 %; NEUTROPHILS % (MANUAL) 85 %; RBC MORPH NORMAL; SMUDGE CELLS SLIGHT
[2020-01-20] MEDS: PROPOFOL DRIP (ICU) 100 ML IV SCH (21:40)
--- NOTE | 2020-01-20 22:14 | NUR ---
OG TUBE REMOVED BY GERARDO RN 2233 NEW OG TUBE PLACED BY THIS RN AT THIS TIME.
[2020-01-20] MEDS ORDERED: cefTRIAXone FOR IV USE 1,000 MG in WATER (STERILE) FOR INJECTION 10 ML IV ONE (23:00)
[2020-01-20] MEDS ORDERED: MAGNESIUM 1 GM/100 ML IVPB 100 ML IV ONE (23:45)
[2020-01-21] VITALS (32 sets, daily range): BP systolic 85–127; BP diastolic 51–105
[2020-01-21] MEDS: PROPOFOL DRIP (ICU) 100 ML IV SCH ×10 (01:00→23:41)
[2020-01-21] MEDS ORDERED: ACETAMINOPHEN 325 MG TABLET PO PRN (01:15)
[2020-01-21] MEDS: LACTATED RINGERS 1,000 ML IV SCH ×4 (01:30→21:16)
[2020-01-21 04:01] LABS: BASOPHILS % (AUTO) 0 % (0-10); EOSINOPHILS % (AUTO) 0 % (0-10); HEMATOCRIT 32 % (35-52); HEMOGLOBIN 11.3 G/DL (11.5-16.0); LYMPHOCYTES # (AUTO) 2.6 X 10^3 (1.0-4.0); LYMPHOCYTES % (AUTO) 16 % (12-44); MEAN CORPUSCULAR HGB CONC 35 G/DL (32-36); MEAN CORPUSCULAR VOLUME 81 FL (80-99); MEAN PLATELET VOLUME 9.4 FL (7.4-10.4); MONOCYTES % (AUTO) 6 % (0-12); NEUTROPHILS # (AUTO) 13.1 X 10^3 (1.8-7.8); NEUTROPHILS % (AUTO) 78 % (42-75); PLATELET COUNT 299 10^3/uL (130-400); WHITE BLOOD COUNT 16.7 10^3/uL (4.3-11.0)
[2020-01-21 04:05] LABS: MEAN CORPUSCULAR HEMOGLOBIN 28 PG (25-34)
[2020-01-21 04:11] LABS: ALBUMIN 4.1 GM/DL (3.2-4.5); CHLORIDE 107 MMOL/L (98-107); POTASSIUM 3.3 MMOL/L (3.6-5.0); SODIUM 136 MMOL/L (135-145)
[2020-01-21 04:13] LABS: CALCIUM 8.5 MG/DL (8.5-10.1)
[2020-01-21 04:14] LABS: GLUCOSE 114 MG/DL (70-105); TOTAL PROTEIN 6.5 GM/DL (6.4-8.2)
[2020-01-21 04:15] LABS: CARBON DIOXIDE 16 MMOL/L (21-32)
[2020-01-21 04:16] LABS: BILIRUBIN,TOTAL 0.2 MG/DL (0.1-1.0)
[2020-01-21 04:17] LABS: ALKALINE PHOSPHATASE 57 U/L (40-136); CREATININE SERUM 0.72 MG/DL (0.60-1.30); GFR ESTIMATED > 60
[2020-01-21 04:18] LABS: BUN/CREATININE RATIO 11
[2020-01-21 04:20] LABS: ALANINE AMINOTRANSFERASE 21 U/L (0-55)
[2020-01-21] MEDS ORDERED: POTASSIUM CL 10MEQ/50ML IVPB 200 ML IV ONE (04:29)
[2020-01-21 04:34] LABS: ABG BASE EXCESS -2.7 MMOL/L (-2.5-2.5); ABG OXYGEN SATURATION 98 % (94-100); ABG PCO2 36 MMHG (35-45); ABG PH 7.39 (7.37-7.43); ABG PO2 134 MMHG (79-93); ABG TCO2 22.7 MMOL/L (21.0-31.0)
[2020-01-21] MEDS: POTASSIUM CL 10MEQ/50ML IVPB 50 ML IV SCH ×6 (04:35→09:42)
[2020-01-21 04:41] LABS: ALLENS TEST YES-POS
[2020-01-21 04:42] LABS: INSPIRED O2 80%; PATIENT TEMP 36.4; VENTILATOR YES
--- NOTE | 2020-01-21 04:52 | Pulmonary Consultation ---
History of Present Illness History of Present Illness Date Seen by Provider: Jan 21, 2020 Time Seen by Provider: 04:47 Date of Admission History of Present Illness 39yo presented to ED after taking a handful of pills in suicidal attempt per family/friends. Pt was intubated in the ED for airway protection. Pt was found to have a right PTX in the ED and a right chest tube was placed. All information obtained from chart. Pt is sedated on vent. patient took a muscle relaxant, amitriptyline, Latuda, unknown amounts. Poison control is following. Allergies and Home Medications Allergies Coded Allergies: tramadol (Verified Allergy, Unknown, 06/19/16) codeine (Verified Adverse Reaction, Mild, NAUSEA, 01/26/15) Uncoded Allergies: SEANSONAL ENVIRONMENTAL (Allergy, Mild, 01/17/14) Home Medications Duloxetine HCl 60 Mg Capsule.dr, 60 MG PO BID, (Reported) Hydroxyzine Pamoate 50 Mg Capsule, 100 MG PO DAILY, (Reported) take 2 (50mg) Tab Hydroxyzine Pamoate 50 Mg Capsule, 200 MG PO HS, (Reported) take 2 (50mg) Tab Orphenadrine Citrate 100 Mg Tablet.er, 100 MG PO BID, (Reported) Oxcarbazepine 300 Mg Tablet, 300 MG PO DAILY, (Reported) Oxcarbazepine 300 Mg Tablet, 600 MG PO HS, (Reported) take 2 (300mg) tabs Pantoprazole Sodium 40 Mg Tablet.dr, 40 MG PO DAILY, (Reported) Promethazine HCl 25 Mg Tablet, 25 MG PO Q6H PRN for NAUSEA/VOMITING, (Reported) Sucralfate 1 Gm Tablet, 1 GM PO QID PRN for HEARTBURN, (Reported) Past Avilplp-Ogmiap-Ugurav Hx Patient Social History Alcohol Use: Regular Use Alcohol Beverage of Choice: Beer Recreational Drug Use: Yes Smoking Status: Current Everyday Smoker Type Used: Cigarettes Former Smoker, Quit: May 19, 2000 Recent Foreign Travel: No Contact w/Someone Who Travel: No Recent Infectious Disease Expo: No Recent Hopitalizations: No Physical Abuse: No Sexual Abuse: No Mistreated: No Fear: No Immunizations Up To Date Tetanus Booster (TDap): Less than 5yrs PED Vaccines UTD: No Date of Pneumonia Vaccine: Apr 19, 2013 Date of Influenza Vaccine: Mar 19, 2015 Seasonal Allergies Seasonal Allergies: Yes Past Medical History Surgeries: Yes (D&C in 1999 and 2001; HYST/OVARIES INTACT) Adenoidectomy, Gallbladder, Hysterectomy, Tonsillectomy Respiratory: No Cardiac: No Neurological: No Reproductive Disorders: No 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 0.0oz. 101.926850hn; 37.00 BMI Method:Stated Exam Exam Vital Signs Date Time Temp Pulse Resp B/P (MAP) Pulse Ox O2 Delivery O2 Flow Rate FiO2 01/21/20 04:37 Mechanical Ventilator 60.00 01/21/20 04:36 120/75 01/21/20 04:05 80 Mechanical Ventilator 01/21/20 03:10 108/69 01/21/20 02:45 36.1 58 22 104/70 (81) 100 Mechanical Ventilator 80.00 01/21/20 02:15 36.0 62 21 119/78 (92) 100 Mechanical Ventilator 80.00 01/21/20 02:00 Mechanical Ventilator 80.00 01/21/20 01:45 35.9 59 21 118/76 (90) 100 Mechanical Ventilator 100.00 01/21/20 01:30 35.9 60 22 121/78 (92) 100 Mechanical Ventilator 100.00 01/21/20 01:15 35.7 59 21 127/82 (97) 100 Mechanical Ventilator 100.00 01/21/20 01:00 60 22 112/69 (83) 100 Mechanical Ventilator 100.00 01/21/20 01:00 Mechanical Ventilator 100 01/21/20 01:00 60 115/79 01/21/20 00:59 61 01/21/20 00:48 36.0 61 20 116/86 (123) 100 01/21/20 00:25 59 22 100 100 01/20/20 22:16 67 22 100 100 01/20/20 21:40 86 165/103 01/20/20 20:45 35.0 93 20 120/90 (100) I & O 01/21/20 07:00 Intake Total 1110 ml Output Total 525 ml Balance 585 ml Height & Weight Height: 5'7.00" Weight: 223lbs. 0.0oz. 101.150446cp; 37.00 BMI Method:Stated General Appearance: Other (sedated on vent') HEENT: Normal ENT Inspection, Pharynx Normal Neck: Full Range of Motion, Non Tender, Supple Respiratory: Chest Non Tender, Normal Breath Sounds, No Accessory Muscle Use, No Respiratory Distress, Decreased Breath Sounds (bilaterally ) Cardiovascular: Regular Rate, Rhythm, No Edema, No Gallop Capillary Refill: Less Than 3 Seconds Peripheral Pulses: 2+ Radial Pulses (R), 2+ Radial Pulses (L) Gastrointestinal: soft, no organomegaly, no pulsatile mass Extremity: Normal Capillary Refill, Normal Inspection, No Pedal Edema Skin: Normal Color, Warm/Dry Lymphatic: No Adenopathy Results Lab Laboratory Tests 01/20/20 20:35 01/21/20 03:40 Assessment/Plan Assessment/Plan Acute respiratory failure -Pt is sedated on vent -Unable to see ET tube on CXR -PT does have bilateral BS, Sp02 is 99% on RA. ABG reviewed. -Check CT of chest to ensure proper position of ET tube and Chest tube. -Check urine test Multidrug OD suicidal attempt -poison control following -RN is going to call poison control to ensure they are following patient. -EICU managed through the night Acute PTX s/p thoravent per ED doc -Continue suction to chest tube. -Connect Chest tube to atrium. -There does not appear to be an air leak. Will check CT of chest to ensure proper position of tube. -Monitor Hypokalemia -replace Anemia -Monitor Metabolic acidosis -Check [place] UTI -Rocephin Marijuana use ANGÉLICA NUÑEZ DO Jan 21, 2020 04:52
[2020-01-21 05:13] LABS: PHOSPHORUS 3.2 MG/DL (2.3-4.7)
--- NOTE | 2020-01-21 05:38 | Diagnostic Imaging Report ---
INDICATION: Post intubation COMPARISON: 05/23/2018 TECHNIQUE: Single radiograph of the chest dated 01/20/2020 at 2207 FINDINGS: Enteric catheter is in place which courses into the abdomen, though the distal tip is not included within the [id number]. No endotracheal tube is identified. The cardiac silhouette is enlarged. No significant pulmonary vascular congestion. The left lung is clear. Dense consolidation within the right upper lung with suggestion of volume loss. Opacification of the right lower chest is also present. No significant left pleural effusion. No pneumothorax. Surgical clips within the right upper quadrant of the abdomen. No acute osseous abnormality. IMPRESSION: Dense consolidation within the right upper lung which may relate to infiltrate, though atelectasis may be present given suggestion of volume loss. Recommend radiographic follow-up to ensure there is no underlying obstructing mass lesion. Elevation of the right hemidiaphragm versus right subpulmonic effusion. Cardiomegaly without significant pulmonary vascular congestion. No endotracheal tube is seen despite examination indication being intubation. Recommend clinical correlation. Enteric catheter is present. Though the distal tip is not included within the [id number], this appears to extend at least into the mid stomach. Dictated by: Dictated on workstation # [id number]
--- NOTE | 2020-01-21 06:00 | Diagnostic Imaging Report ---
INDICATION: Removal of enteric catheter, line placement. COMPARISON: Imaging from the same date TECHNIQUE: Single radiograph of the chest dated 01/20/2020 at 2212 hours. FINDINGS: The cardiac silhouette is enlarged, though stable. No significant pulmonary vascular congestion. The left lung appears clear. Persistent opacities within the right upper lung with volume loss and rightward shift of the mediastinum. Opacification in the right lung base is also present. Previously noted enteric catheter has been removed. Surgical clips within right upper quadrant of the abdomen. No pneumothorax. No new acute osseous abnormality. Chronic healed posterior left-sided rib fracture. IMPRESSION: Interval removal of enteric catheter. Persistent right upper lung opacities. Persistent opacification of the right lung base which may relate to a subpulmonic effusion versus elevation of the right hemidiaphragm with associated volume loss. Stable cardiomegaly. Dictated by: Dictated on workstation # [id number]
--- NOTE | 2020-01-21 06:07 | Diagnostic Imaging Report ---
INDICATION: Chest tube placement. COMPARISON: Imaging from same date. TECHNIQUE: Single radiograph of the chest dated 01/20/2020 at 2223 hours. FINDINGS: Interval placement of a small caliber right-sided chest tube overlying the peripheral right midlung. A small to moderate sized right-sided pneumothorax is present. Persistent opacities within the right upper lung and right lung base remain. The left lung remains clear. No significant left pleural effusion. No left-sided pneumothorax. Cardiac silhouette remains enlarged without pulmonary vascular congestion. Remainder of exam appears similar. IMPRESSION: Interval placement of a small caliber right-sided chest tube. Small to moderate sized right-sided hydropneumothorax is present. Recommend continued follow-up. No evidence of tension phenomenon. Persistent right upper lung opacities. Persistent volume loss within the right lung. Dictated by: Dictated on workstation # [id number]
--- NOTE | 2020-01-21 06:11 | Diagnostic Imaging Report ---
INDICATION: Post OG placement COMPARISON: Imaging from same date TECHNIQUE: Single frontal radiograph of the chest dated 01/20/2020 at 2244 FINDINGS: Interval placement of an enteric catheter which extends into the stomach extending into the left upper abdomen. Small caliber right-sided chest tube is again identified. The cardiac silhouette is enlarged, though stable. No significant pulmonary vascular congestion. Decreased lung volumes. Improved though persistent small right-sided hydropneumothorax. No focal opacity within the left lung. No significant left pleural effusion. No left-sided pneumothorax. Osseous structures are stable. IMPRESSION: Interval placement of an enteric catheter extending into the stomach with the distal tip within the left upper abdomen. Improved though persistent small right-sided hydropneumothorax with small caliber right-sided chest tube in place. Persistent cardiomegaly. Improved volume loss within the right lung. Dictated by: Dictated on workstation # [id number]
[2020-01-21] MEDS ORDERED: PIPERACILLIN/TAZO 4.5 GM/NS 100 ML IV NR ×2 (07:00)
[2020-01-21] MEDS ORDERED: fentaNYL INJECTION 100 MCG/2 ML AMP ONE (07:23)
[2020-01-21] MEDS ORDERED: NS 100 ML (IVPB) BAG IV ONE (07:30)
[2020-01-21] MEDS ORDERED: IOHEXOL 350 MG/ML 100 ML (OMNIPAQUE 350) VIAL IV ONE (07:30)
[2020-01-21] MEDS ORDERED: fentaNYL INJECTION 100 MCG/2 ML AMP IVP PRN (07:45)
[2020-01-21] MEDS ORDERED: LORazepam INJ 2 MG/ML (ATIVAN) VIAL IVP PRN (07:45)
--- NOTE | 2020-01-21 07:59 | Occ Therapy Progress Note ---
Therapy Progress Note OT orders received and chart reviewed, pt is currently intubated and sedated. OT will continue to follow pt and initiate OT when pt is more medically stable and able to actively participate in skilled therapy. TRENTON VARGAS OT Jan 21, 2020 07:59
[2020-01-21] MEDS ORDERED: ETOMIDATE IV SOLN 20 MG/10 ML VIAL IV ONE (08:15)
[2020-01-21] MEDS ORDERED: ROCURONIUM 10 MG/ML 5 ML SYRINGE IV ONE (08:15)
[2020-01-21] MEDS: ENOXAPARIN 40 MG/0.4 ML (LOVENOX) SYR SC SCH (08:34)
--- NOTE | 2020-01-21 08:44 | Physical Therapy Progress Note ---
Therapy Progress Note Evaluation order received. Patient is currently intubated and sedated. Will monitor patient progress and start when appropriate. TORI LEACH PT Jan 21, 2020 08:44
--- NOTE | 2020-01-21 08:48 | Diagnostic Imaging Report ---
INDICATION: Pneumothorax. TECHNIQUE: Single view chest 2:16 AM. CORRELATION STUDY: 01/20/2020 FINDINGS: Gastric tube tip in the left upper quadrant. A small caliber right-sided thoracostomy tube is present. There is asymmetric lucency over the right lung apex. While pleural line is not well-defined does suggest probable pneumothorax. Some improvement in aeration of the right lung base. There is overall generalized right lung volume loss. There is slight hyperinflation left lung given findings. Heart size, mediastinum and vasculature overall within normal limits, but are slightly deviated towards the right. IMPRESSION: 1. Small caliber right-sided thoracostomy tube. While pleural line not definitively visualized, does appear to represent a small right-sided pneumothorax, slightly more prominent from prior. Dictated by: Dictated on workstation # [id number]
--- NOTE | 2020-01-21 09:31 | Diagnostic Imaging Report ---
INDICATION: Tube advancement COMPARISON: Imaging from the same date TECHNIQUE: Single radiograph of the chest dated 01/21/2020 at 0832 FINDINGS: Enteric catheter is again identified with the distal tip and sidehole within the stomach. Small caliber right-sided chest tube is again identified. This catheter appears to be in a slightly different configuration than the prior examination and is seen overlying the osseous chest wall. Definitive extrapleural location of the catheter cannot be confirmed on this exam. Persisting opacities within the right upper lung, appearing stable from the prior examination. Small right-sided pneumothorax is again identified. No evidence of tension phenomenon. Improved aeration of the right lung base. Remainder of examination appears stable. IMPRESSION: Small caliber right-sided chest tube is in place. This overlies the ribs, and extrapleural location of the chest tube cannot be confirmed on this location as it could be within the chest wall itself. Recommend clinical correlation for functionality of the chest tube. Persisting small right-sided pneumothorax without evidence of tension phenomenon. Remainder of the exam appears similar. Report given to patient's nurse (Wolf) at 9:30 AM 01/21/2020/cb Dictated by: Dictated on workstation # [id number]
[2020-01-21] MEDS: PANTOPRAZOLE 40 MG (PROTONIX) VIAL IV SCH (10:20)
[2020-01-21] MEDS: fentaNYL INJECTION 1,250 MCG in NS (IVPB) 250 ML IV SCH (11:06)
--- NOTE | 2020-01-21 11:54 | Diagnostic Imaging Report ---
PROCEDURE: CT chest with contrast only. TECHNIQUE: Multiple contiguous axial images were obtained through the chest after administration of intravenous contrast. Auto Exposure Controls were utilized during the CT exam to meet ALARA standards for radiation dose reduction. INDICATION: Pneumothorax, chest tube COMPARISON: Imaging from the same date FINDINGS: A small caliber right-sided chest tube is in place entering via an anterior approach. However, the chest tube does not extend into the chest cavity/pleural space as it terminates within the soft tissues anterior to the right 1st rib and clavicle. A significant amount of subcutaneous emphysema is present at this location, also extending along the chest wall inferiorly and anteriorly. A moderate sized right-sided pneumothorax is present. A small amount of pneumomediastinum is also present, extending into the right lower neck. No leftward shift of the mediastinum. Enteric catheter is present extending into the stomach. No significant adenopathy within chest. No aneurysmal dilatation of the thoracic aorta. No significant pericardial effusion or pneumopericardium. No significant pleural effusion. Mild left basilar atelectasis. The left lung is otherwise clear. Prominent dense irregular consolidation is present within the right upper lobe measuring up to 5 cm. Additional dense consolidation is present within the right lower lobe with some air bronchograms present. The trachea is patent. Cholecystectomy. The visualized upper abdomen is otherwise unremarkable. Multiple chronic left-sided rib fractures, many of which appear ununited within the inferior aspect of the left chest posteriorly. Scattered osseous degenerative changes without new acute osseous abnormality. However, evaluation of the osseous structures is limited secondary to respiratory motion. IMPRESSION: Small caliber right-sided chest tube is not located within the pleural space and is within the soft tissues of the anterior upper chest. Recommend removal and repositioning. Moderate sized right-sided pneumothorax without evidence of tension phenomenon. Small pneumomediastinum is also present, extending into the right lower neck. Extensive opacities within the right lung. A component of this likely relates to atelectasis and volume loss. However, infiltrate within the right lower lobe is suspected. Recommend radiographic follow-up to ensure clearance as a mass lesion is not excluded, particularly within the right upper lobe. Additional findings as above. Findings discussed with the patient's nurse at 11:41 AM on 01/21/2020. At that time, this was a known finding. Dictated by: Dictated on workstation # [id number]
--- NOTE | 2020-01-21 12:42 | History & Physical-Hospitalist ---
History of Present Illness HPI/Chief Complaint CC: OD HPI: This is a 39yoWF clinic patient of [facility] who presents to ER after a suicide attempt with Elavil and Latuda. Patient intubated and currently stable but critical. Source: RN/MD Exam Limitations: clinical condition Date Seen 01/21/20 Time Seen by a Provider: 12:05 Attending Physician Bell Reyes MD [facility] [place] Referring Physician Date of Admission Jan 20, 2020 at 22:57 Home Medications & Allergies Home Medications Reviewed patient Home Medication Reconciliation performed by pharmacy medication reconciliations oscillograph technician and/or nursing. Patients Allergies have been reviewed. Allergies Allergies Coded Allergies tramadol (Verified Allergy, Unknown, 06/19/16) codeine (Verified Adverse Reaction, Mild, NAUSEA, 01/26/15) Uncoded Allergies SEANSONAL ENVIRONMENTAL ( Allergy, Mild, 01/17/14) Past [id number] Hx Past Med/Social Hx: Reviewed Nursing Past Med/Soc Hx, Reviewed and Corrections made Patient Social History Alcohol Use: Regular Use Alcohol Beverage of Choice: Beer Recreational Drug Use: Yes Smoking Status: Current Everyday Smoker Former Smoker, Quit: May 19, 2000 Type Used: Cigarettes Recent Foreign Travel: No Contact w/other who traveled: No Recent Hopitalizations: No Recent Infectious Disease Expo: No Immunizations Up To Date Tetanus Booster (TDap): Less than 5yrs Pediatric: No Date of Pneumonia Vaccine: Apr 19, 2013 Date of Influenza Vaccine: Mar 19, 2015 Seasonal Allergies Seasonal Allergies: Yes Past Medical History Surgeries: Adenoidectomy, Gallbladder, Hysterectomy, Tonsillectomy Reproductive: No Sexually Transmitted Disease: No HIV/AIDS: No Hysterectomy Gastrointestinal: Gastroesophageal Reflux, Truong's Esophagus Musculoskeletal: Fibromyalgia, Scoliosis, Chronic Back Pain Psychosocial: Anxiety, Depression History of Blood Disorders: No Family History No Pertinent Family Hx Review of Systems Constitutional: see HPI, weakness Physical Exam Physical Exam Vital Signs Vital Signs - First Documented 01/20/20 01/20/20 01/21/20 20:45 22:16 01:00 Temp 35.0 Pulse 93 Resp 20 B/P (MAP) 120/90 (100) Pulse Ox 100 O2 Delivery Mechanical Ventilator O2 Flow Rate 100.00 FiO2 100 Capillary Refill : Less Than 3 Seconds Height, Weight, BMI Height: 5'7.00" Weight: 223lbs. 0.0oz. [id number]; 37.00 BMI Method:Stated General Appearance: No Apparent Distress, Chronically ill, Other (intubated) Respiratory: Lungs Clear Cardiovascular: Regular Rate, Rhythm Results Results/Procedures Labs Laboratory Tests 01/20/20 20:35 01/21/20 03:40 Patient resulted labs reviewed. Assessment/Plan Admission Diagnosis Assessment: OD Suicide attempt Smoker Plan: Intubation Monitor closely Critical Admission Status: Inpatient Order (span 2 midnights) Reason for Inpatient Admission: od intubated Diagnosis/Problems Diagnosis/Problems (1) Drug overdose Status: Acute Qualifiers: Encounter type: initial encounter Injury intent: intentional self-harm Qualified Codes: T50.902A - Poisoning by unspecified drugs, medicaments and biological substances, intentional self-harm, initial encounter (2) Suicide attempt by adequate means Status: Acute Qualifiers: Encounter type: initial encounter Qualified Codes: X83.8XXA - Intentional self-harm by other specified means, initial encounter Clinical Quality Measures DVT/VTE Risk/Contraindication: Risk Factor Score Per Nursin RFS Level Per Nursing on Admit: 2=Moderate SIMON ARMAS DO Jan 21, 2020 12:42
--- NOTE | 2020-01-21 12:43 | Progress Note ---
Standard Progress Note Progress Notes/Assess & Plan Date Seen by a Provider: Jan 21, 2020 Time Seen by a Provider: 11:45 Progress/Assessment & Plan Called by E-ICU to assess patient for possible endotracheal tube exchange. To ICU patient intubated and sedated. Oxygen saturation 100% on 100% O2. Patient has bilateral breath sounds. Slightly greater on the left than right, coarse. Video bronchoscope used to visualize trachea. Upon advancing bronchoscope there was a whitened area around tube assumed to be vocal cords with the Quyen visualized well below the end of the endotracheal tube. ETT does not require exchanging with noted findings. Focused Exam Lactate Level 01/21/20 07:07: Lactic Acid Level 1.38 READING,HIEU Almonte CRNA Jan 21, 2020 12:43
[2020-01-21] MEDS: PIPERACILLIN/TAZOBACTAM (BULK) 4.5 GM in NS (IVPB) 100 ML IV SCH ×2 (13:30→21:16)
--- NOTE | 2020-01-21 13:32 | NUR ---
"Received dietary consult regarding pt's vent status. Est kcal needs: 1575 kcal | 15 kcal/kg Est Pro needs: 63 g Pro | 0.6 g Pro/kg Note pt is currently intubated/sedated. Plan of care is for pt to extubated in the next few days. If pt is to remain NPO for more than 3days, would recommend the following TF to reduce risk of malnutrition: Pulmocare 1.5 kcal at goal rate of 45ml/hr. Begin at 10ml/hr and increase by 10ml q6h as medically able and as tolerated. Monitor gastric residuals for tolerance. At goal rate, provides 1620 kcal (15 kcal/kg); 68 g Pro (0.6 g Pro/kg); and 848ml free water. Flush with 75ml water q4h for hydration status. With flushes, provides 1298ml free water. Will continue to follow and reassess as pt needs, intake, and status change. Kristine Gutierrez, MS, RD, LD [phone] (cell)"
[2020-01-21] MEDS ORDERED: LIDOCAINE 1% INJ 20 ML 20 ML VIAL ONE (15:16)
--- NOTE | 2020-01-21 15:16 | Consultation - Surgery ---
History of Present Illness History of Present Illness Patient Consulted On(kassandra/time) 01/21/20 15:10 Time Seen by Provider: 14:51 History of Present Illness Surgery asked to consult regarding Pneumothorax. HPI per ED: Patient presents to the ER by EMS from home with chief complaint of nausea vomiting, ingestion of a handful of pills and suicidal ideation per family/friends. Patient states she took them about one hour ago, approximately 1900. Friends thinks maybe she took a muscle relaxer. She has been vomiting for EMS. She does answer questions but she is fairly uncooperative. She does not answer what she took. Family calls back to the ER and clarifies that the patient took a muscle relaxant, amitriptyline, Latuda, unknown amounts. Pt is intubated and sedated, unable to obtain any hx. I was called by Tele-ICU regarding PTX and previous chest tube is not in the plueral cavity, pt will not be able to be extubated and with positive pressure ventilation there is high risk of increasing the PTX. Allergies and Home Medications Allergies Coded Allergies: tramadol (Verified Allergy, Unknown, 06/19/16) codeine (Verified Adverse Reaction, Mild, NAUSEA, 01/26/15) Uncoded Allergies: SEANSONAL ENVIRONMENTAL (Allergy, Mild, 01/17/14) Home Medications Duloxetine HCl 60 Mg Capsule.dr, 60 MG PO BID, (Reported) Hydroxyzine Pamoate 50 Mg Capsule, 100 MG PO DAILY, (Reported) take 2 (50mg) Tab Hydroxyzine Pamoate 50 Mg Capsule, 200 MG PO HS, (Reported) take 2 (50mg) Tab Orphenadrine Citrate 100 Mg Tablet.er, 100 MG PO BID, (Reported) Oxcarbazepine 300 Mg Tablet, 300 MG PO DAILY, (Reported) Oxcarbazepine 300 Mg Tablet, 600 MG PO HS, (Reported) take 2 (300mg) tabs Pantoprazole Sodium 40 Mg Tablet.dr, 40 MG PO DAILY, (Reported) Promethazine HCl 25 Mg Tablet, 25 MG PO Q6H PRN for NAUSEA/VOMITING, (Reported) Sucralfate 1 Gm Tablet, 1 GM PO QID PRN for HEARTBURN, (Reported) Patient Home Medication List Home Medication List Reviewed: Yes Past Bynsnbc-Satqxa-Qtugra Hx Patient Social History Alcohol Use: Regular Use Recreational Drug Use: Yes Smoking Status: Current Everyday Smoker Former Smoker, Quit: May 19, 2000 Type Used: Cigarettes Recent Foreign Travel: No Contact w/Someone Who Travel: No Recent Infectious Disease Expo: No Recent Hopitalizations: No Immunizations Up To Date Tetanus Booster (TDap): Less than 5yrs PED Vaccines UTD: No Date of Pneumonia Vaccine: Apr 19, 2013 Date of Influenza Vaccine: Mar 19, 2015 Seasonal Allergies Seasonal Allergies: Yes Surgeries History of Surgeries: Yes (D&C in 1999 and 2001; HYST/OVARIES INTACT) Surgeries: Adenoidectomy, Gallbladder, Hysterectomy, Tonsillectomy Respiratory History of Respiratory Disorde: No Cardiovascular History of Cardiac Disorders: No Neurological History of Neurological Disord: No Reproductive System Hx Reproductive Disorders: No Sexually Transmitted Disease: No HIV/AIDS: No 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 Genitourinary History of Genitourinary Disor: No Gastrointestinal History of Gastrointestinal Di: Yes (DYSPHAGIA) Gastrointestinal Disorders: Gastroesophageal Reflux, Truong's Esophagus Musculoskeletal History of Musculoskeletal Dis: Yes Musculoskeletal Disorders: Fibromyalgia, Scoliosis, Chronic Back Pain Endocrine History of Endocrine Disorders: No HEENT History of HEENT Disorders: No Cancer History of Cancer: No Psychosocial History of Psychiatric Problem: Yes Behavioral Health Disorders: Anxiety, Depression Integumentary History of Skin or Integumenta: No Blood Transfusions History of Blood Disorders: No Family Medical History Significant Family History: No Pertinent Family Hx (unable to obtain because pt is sedated and intubated) Review of Systems-General ROS-Unable to Obtain: pt sedated and intubated Physical Exam-General Problems Physical Exam Vital Signs Vital Signs - First Documented 01/20/20 01/20/20 01/21/20 20:45 22:16 01:00 Temp 35.0 Pulse 93 Resp 20 B/P (MAP) 120/90 (100) Pulse Ox 100 O2 Delivery Mechanical Ventilator O2 Flow Rate 100.00 FiO2 100 Capillary Refill : Less Than 3 Seconds General Appearance: no apparent distress, other (sedated and intubated) Eyes: Bilateral Eye PERRL HEENT: No scleral icterus (R), No scleral icterus (L); other (ET tube in place) Neck: supple; No carotid bruit, No thyromegaly Respiratory: lungs clear, normal breath sounds (on left ), no respiratory distress, no accessory muscle use, decreased breath sounds (on Right), other (crepitance on right chest) Cardiovascular: regular rate, rhythm, no murmur Gastrointestinal: non tender, soft, no organomegaly Skin: normal color, warm/dry Lymphatic: no adenopathy (neck, axilla or groin) Data Review Labs Laboratory Tests 01/20/20 20:31: Urine Color YELLOW, Urine Clarity CLEAR, Urine pH 6.0, Urine Specific [place] 1.025H, Urine Protein 2+H, Urine Glucose (UA) NEGATIVE, Urine Ketones NEGATIVE, Urine Nitrite NEGATIVE, Urine Bilirubin NEGATIVE, Urine Urobilinogen 0.2, Urine Leukocyte Esterase 2+H, Urine RBC (Auto) TRACE-I, Urine RBC 0-2, Urine WBC 50- 100H, Urine Crystals NONE, Urine Amorphous Sediment FEW [place] URATESH, Urine Bacteria MODERATEH, Urine Casts PRESENT, Urine Hyaline Casts 0-2H, Urine Mucus NEGATIVE, Urine Culture Indicated YES, Urine Test NEGATIVE, Urine Opiates Screen NEGATIVE, Urine Oxycodone Screen NEGATIVE, Urine Methadone Screen NEGATIVE, Urine Propoxyphene Screen NEGATIVE, Urine Barbiturates Screen NEGATIVE, Ur Tricyclic Antidepressants Screen NEGATIVE, Urine Phencyclidine Screen NEGATIVE, Urine Amphetamines Screen NEGATIVE, Urine Methamphetamines Screen NEGATIVE, Urine Benzodiazepines Screen POSITIVEH, Urine Cocaine Screen NEGATIVE, Urine Cannabinoids Screen POSITIVEH 01/20/20 20:35: White Blood Count 16.0H, Red Blood Count 3.96L, Hemoglobin 11.4L, Hematocrit 32L , Mean Corpuscular Volume 82, Mean Corpuscular Hemoglobin 29, Mean Corpuscular Hemoglobin Concent 35, Red Cell Distribution Width 14.0, Platelet Count 300, Mean Platelet Volume 9.5, Neutrophils (%) (Auto) 80H, Lymphocytes (%) (Auto) 12, Monocytes (%) (Auto) 7, Eosinophils (%) (Auto) 0, Basophils (%) (Auto) 0, Neutrophils # (Auto) 12.8H, Lymphocytes # (Auto) 2.0, Monocytes # (Auto) 1.1H, Eosinophils # (Auto) 0.1, Basophils # (Auto) 0.0, Neutrophils % (Manual) 85, Lymphocytes % (Manual) 11, Monocytes % (Manual) 4, Smudge Cells SLIGHT, Blood Morphology Comment NORMAL, Sodium Level 136, Potassium Level 3.2L, Chloride Level 112H, Carbon Dioxide Level 9*L, Anion Gap 15H, Blood Urea Nitrogen 9, Creatinine 0.87, Estimat Glomerular Filtration Rate > 60, BUN/Creatinine Ratio 10, Glucose Level 134H, Calcium Level 7.9L, Corrected Calcium 8.1L, Total Bilirubin 0.2, Aspartate Amino Transf (AST/SGOT) 24, Alanine Aminotransferase (ALT/SGPT) 20, Alkaline Phosphatase 52, Total Protein 6.5, Albumin 3.8, Salicylates Level < 5.0L, Acetaminophen Level < 10L, Serum Alcohol < 10 01/20/20 20:40: Blood Gas Puncture Site RIGHT RADIAL, Blood Gas Patient Temperature 35.0, Arterial Blood pH 7.42, Arterial Blood Partial Pressure CO2 30L, Arterial Blood Partial Pressure O2 65L, Arterial Blood HCO3 19L, Arterial Blood Total CO2 20.4L , Arterial Blood Oxygen Saturation 95, Arterial Blood Base Excess -4.7L, Scooby Test YES-POS, Blood Gas Ventilator Setting NO, Blood Gas Inspired Oxygen NOT INDIACATED 01/21/20 03:40: White Blood Count 16.7H, Red Blood Count 3.97L, Hemoglobin 11.3L, Hematocrit 32L , Mean Corpuscular Volume 81, Mean Corpuscular Hemoglobin 28, Mean Corpuscular Hemoglobin Concent 35, Red Cell Distribution Width 14.1, Platelet Count 299, Mean Platelet Volume 9.4, Neutrophils (%) (Auto) 78H, Lymphocytes (%) (Auto) 16, Monocytes (%) (Auto) 6, Eosinophils (%) (Auto) 0, Basophils (%) (Auto) 0, Neutrophils # (Auto) 13.1H, Lymphocytes # (Auto) 2.6, Monocytes # (Auto) 1.0, Eosinophils # (Auto) 0.0, Basophils # (Auto) 0.0, Sodium Level 136, Potassium Level 3.3L, Chloride Level 107, Carbon Dioxide Level 16L, Anion Gap 13, Blood Urea Nitrogen 8, Creatinine 0.72, Estimat Glomerular Filtration Rate > 60, BUN/Creatinine Ratio 11, Glucose Level 114H, Calcium Level 8.5, Corrected Calcium 8.4L, Total Bilirubin 0.2, Aspartate Amino Transf (AST/SGOT) 20, Alanine Aminotransferase (ALT/SGPT) 21, Alkaline Phosphatase 57, Total Protein 6.5, Albumin 4.1, Phosphorus Level 3.2, Magnesium Level 2.0 01/21/20 04:27: Blood Gas Puncture Site RIGHT RADIAL, Blood Gas Patient Temperature 36.4, Arterial Blood pH 7.39, Arterial Blood Partial Pressure CO2 36, Arterial Blood Partial Pressure O2 134H, Arterial Blood HCO3 22L, Arterial Blood Total CO2 22.7, Arterial Blood Oxygen Saturation 98, Arterial Blood Base Excess -2.7L, Scooby Test YES-POS, Blood Gas Ventilator Setting YES, Blood Gas Inspired Oxygen 80% 01/21/20 07:07: Lactic Acid Level 1.38 Radiology Date of Exam:01/21/20 CT CHEST W PROCEDURE: CT chest with contrast only. TECHNIQUE: Multiple contiguous axial images were obtained through the chest after administration of intravenous contrast. Auto Exposure Controls were utilized during the CT exam to meet ALARA standards for radiation dose reduction. INDICATION: Pneumothorax, chest tube COMPARISON: Imaging from the same date FINDINGS: A small caliber right-sided chest tube is in place entering via an anterior approach. However, the chest tube does not extend into the chest cavity/pleural space as it terminates within the soft tissues anterior to the right 1st rib and clavicle. A significant amount of subcutaneous emphysema is present at this location, also extending along the chest wall inferiorly and anteriorly. A moderate sized right-sided pneumothorax is present. A small amount of pneumomediastinum is also present, extending into the right lower neck. No leftward shift of the mediastinum. Enteric catheter is present extending into the stomach. No significant adenopathy within chest. No aneurysmal dilatation of the thoracic aorta. No significant pericardial effusion or pneumopericardium. No significant pleural effusion. Mild left basilar atelectasis. The left lung is otherwise clear. Prominent dense irregular consolidation is present within the right upper lobe measuring up to 5 cm. Additional dense consolidation is present within the right lower lobe with some air bronchograms present. The trachea is patent. Cholecystectomy. The visualized upper abdomen is otherwise unremarkable. Multiple chronic left-sided rib fractures, many of which appear ununited within the inferior aspect of the left chest posteriorly. Scattered osseous degenerative changes without new acute osseous abnormality. However, evaluation of the osseous structures is limited secondary to respiratory motion. IMPRESSION: Small caliber right-sided chest tube is not located within the pleural space and is within the soft tissues of the anterior upper chest. Recommend removal and repositioning. Moderate sized right-sided pneumothorax without evidence of tension phenomenon. Small pneumomediastinum is also present, extending into the right lower neck. Extensive opacities within the right lung. A component of this likely relates to atelectasis and volume loss. However, infiltrate within the right lower lobe is suspected. Recommend radiographic follow-up to ensure clearance as a mass lesion is not excluded, particularly within the right upper lobe. Additional findings as above. Findings discussed with the patient's nurse at 11:41 AM on 01/21/2020. At that time, this was a known finding. Dictated by: Dictated on workstation # [id number] Dict: 01/21/20 1126 Trans: 01/21/[address] [facility] [id number] Interpreted by: MAINOR JONES MD Electronically signed by: MAINOR JONES MD 01/21/20 1202 Assessment/Plan Assessment/Plan Assessment/Plan Pneumothorax Drug Overdose Respiratory Failure Pt will not be able to be extubated and with positive pressure ventilation there is high risk of increasing the PTX. Previous thoravent removed and pt already has consent for Chest tube will replace. Clinical Quality Measures DVT/VTE Risk/Contraindication: Risk Factor Score Per Nursin RFS Level Per Nursing on Admit: 2=Moderate AAMIR BISHOP DO Jan 21, 2020 15:16
--- NOTE | 2020-01-21 15:35 | Progress Note-Post Operative ---
Post-Operative Progess Note Surgeon (s)/Director Of Student Services (s) Surgeon AAMIR BISHOP DO Director Of Student Services: Letty Pre-Operative Diagnosis PTX Post-Operative Diagnosis PTX Procedure & Operative Findings Date of Procedure 01/21/20 Procedure Performed/Findings Chest Tube Insertion Chest Tube removal Anesthesia Type Local lidocaine Estimated Blood Loss Estimated blood loss (mL): none Specimens/Packing Specimens Removed none AAMIR BISHOP DO Jan 21, 2020 15:35
--- NOTE | 2020-01-21 16:06 | Diagnostic Imaging Report ---
Indication: Chest tube placement Portable chest 3:57 PM There is an ET tube projects over the trachea. There is NG tube projects over the stomach. There is a catheter projecting over the lower thoracic spine that may be a thoracostomy tube. Clinical correlation recommended. There is no appreciable pneumothorax. There is right perihilar atelectasis. IMPRESSION: Right perihilar atelectasis. No appreciable effusion or pneumothorax. Dictated by: Dictated on workstation # [id number]
[2020-01-21] MEDS ORDERED: cefTRIAXone 1,000 MG/SWFI 10 ML IV PUSH IV SCH ×2 (21:00)
[2020-01-22] VITALS (18 sets, daily range): BP systolic 94–154; BP diastolic 52–100
[2020-01-22] MEDS: PROPOFOL DRIP (ICU) 100 ML IV SCH ×5 (02:04→08:37)
[2020-01-22 03:37] LABS: ABG BASE EXCESS -2.1 MMOL/L (-2.5-2.5); ABG OXYGEN SATURATION 99 % (94-100); ABG PCO2 32 MMHG (35-45); ABG PH 7.44 (7.37-7.43); ABG PO2 101 MMHG (79-93); ABG TCO2 22.3 MMOL/L (21.0-31.0)
[2020-01-22 03:38] LABS: ALLENS TEST YES-POS; INSPIRED O2 30%; VENTILATOR YES
[2020-01-22 03:39] LABS: PATIENT TEMP 37.1
[2020-01-22] MEDS: LACTATED RINGERS 1,000 ML IV SCH ×4 (03:53→20:57)
--- NOTE | 2020-01-22 04:21 | OPERATIVE REPORT ---
DATE OF SERVICE: 01/21/2020 PREOPERATIVE DIAGNOSES: Pneumothorax. POSTOPERATIVE DIAGNOSES: Pneumothorax, pending chest x-ray. PROCEDURE: 1. Insertion of chest tube. 2. Removal of chest tube. SURGEON: Félix Saenz DO WAX ROOM SUPERVISOR: None. ANESTHESIA: Local lidocaine. BLOOD LOSS: Scant. FLUIDS: None. POSTOPERATIVE CONDITION: Stable. SPECIMENS: None. INDICATION FOR PROCEDURE: The patient is a 39-year-old female who unfortunately had a drug overdose and had a pneumothorax found. A chest tube was placed yesterday unfortunately was not in the pleural cavity and it was in the chest wall, confirmed on x-ray and CT. She will need a chest tube placed because she is on positive pressure ventilation and this pneumothorax could get worse. FINDINGS: The patient had a chest tube placed midclavicular line between the second and third ribs. PROCEDURE NOTE: The patient had informed consent for chest tube placed yesterday and in the room and we sterilely prepped and draped her in normal fashion, removed the previous Thora-Vent, elected to place another Thora-Vent, infiltrated the skin with local just above the 3rd rib at the midclavicular line. I made a stab incision with #11 blade and then using Thora-Vent on a trocar gently pushed down through the tissues, felt the top rib, the 3rd rib and then went just over the top of it and then gently advanced, felt it pop through and then easily advanced the catheter, went in and then placed a Thora-Vent to the chest, hooked up the one-way valve to the Thora-Vent and then aspirated to try and suction out all of the air until we met resistance. Suctioned about 150 mL of air and at this point then hooked the Thora-Vent up to the Pleur-evac and taped it down to the chest wall, ordered a chest x-ray. The patient tolerated the procedure. Job ID: [id number] DocumentID: [id number] Dictated Date: 01/21/2020 15:38:34 Painter Decorator Date: 01/22/2020 00:05:20 Dictated By: FÉLIX SAENZ DO
[2020-01-22] MEDS: PIPERACILLIN/TAZOBACTAM (BULK) 4.5 GM in NS (IVPB) 100 ML IV SCH ×3 (05:37→20:55)
[2020-01-22 05:43] LABS: BASOPHILS # (AUTO) 0.1 10^3/uL (0.0-0.1); BASOPHILS % (AUTO) 1 % (0-10); EOSINOPHILS # (AUTO) 0.1 10^3/uL (0.0-0.3); EOSINOPHILS % (AUTO) 1 % (0-10); HEMATOCRIT 29 % (35-52); HEMOGLOBIN 10.2 G/DL (11.5-16.0); LYMPHOCYTES # (AUTO) 2.5 X 10^3 (1.0-4.0); LYMPHOCYTES % (AUTO) 24 % (12-44); MEAN CORPUSCULAR HEMOGLOBIN 29 PG (25-34); MEAN CORPUSCULAR HGB CONC 35 G/DL (32-36); MEAN CORPUSCULAR VOLUME 84 FL (80-99); MEAN PLATELET VOLUME 9.8 FL (7.4-10.4); MONOCYTES # (AUTO) 0.6 X 10^3 (0.0-1.0); MONOCYTES % (AUTO) 6 % (0-12); NEUTROPHILS # (AUTO) 7.2 X 10^3 (1.8-7.8); NEUTROPHILS % (AUTO) 69 % (42-75); PLATELET COUNT 268 10^3/uL (130-400); WHITE BLOOD COUNT 10.5 10^3/uL (4.3-11.0)
[2020-01-22 05:51] LABS: CHLORIDE 109 MMOL/L (98-107); POTASSIUM 3.1 MMOL/L (3.6-5.0); SODIUM 138 MMOL/L (135-145)
[2020-01-22 05:52] LABS: CALCIUM 8.1 MG/DL (8.5-10.1)
[2020-01-22 05:53] LABS: GLUCOSE 113 MG/DL (70-105)
[2020-01-22 05:54] LABS: CARBON DIOXIDE 19 MMOL/L (21-32)
[2020-01-22 05:56] LABS: CREATININE SERUM 0.74 MG/DL (0.60-1.30); GFR ESTIMATED > 60; PHOSPHORUS 2.4 MG/DL (2.3-4.7)
[2020-01-22 05:57] LABS: BUN/CREATININE RATIO 8
[2020-01-22 05:59] LABS: MAGNESIUM 1.7 MG/DL (1.6-2.4)
[2020-01-22] MEDS: inSUlin ASPART (NovoLOG) 1 UNIT/0.01 ML (CHARGE PER UNIT) SQ SCH ×2 (05:59→12:55)
[2020-01-22] MEDS: POTASSIUM CL 10MEQ/50ML IVPB 50 ML IV SCH ×5 (06:00→08:36)
--- NOTE | 2020-01-22 06:07 | NUR ---
Notified BRODY SHIPMAN MD of 3.1 potassium. would like to hold K+ replacement and just observe patient at this time due to pt's urine output less than 0.5ml/kg/hr (52ml/hr). Rn will continue to monitor patient.
--- NOTE | 2020-01-22 06:14 | NUR ---
notified Dr. Spencer of patient's potassium of 3.1, and mag 1.7. Unable to replace per protocol due to urine output less than 0.5ml/kg/hr (52ml/hr). New order received at this time to replace per protocol.
[2020-01-22] MEDS: MAGNESIUM 1 GM/100 ML IVPB 100 ML IV SCH ×3 (06:25→08:35)
[2020-01-22] MEDS: ENOXAPARIN 40 MG/0.4 ML (LOVENOX) SYR SC SCH (06:25)
[2020-01-22] MEDS: fentaNYL INJECTION 1,250 MCG in NS (IVPB) 250 ML IV SCH (06:27)
[2020-01-22] MEDS: KCL 20 MEQ TAB (K-DUR) PO SCH (07:44)
[2020-01-22] MEDS: PANTOPRAZOLE 40 MG (PROTONIX) VIAL IV SCH (08:39)
--- NOTE | 2020-01-22 09:02 | Diagnostic Imaging Report ---
EXAMINATION: Chest 1 view HISTORY: Overdose. Intubated. COMPARISON: 01/21/2020. FINDINGS: Stable endotracheal tube and enteric tube. Right-sided thoracostomy tube is again noted. No large pneumothorax or pleural effusion. Patchy bibasilar opacities are present. The cardiac silhouette is stable. No acute osseous abnormalities. IMPRESSION: 1. Patchy bibasilar opacities likely representing atelectasis. No large pneumothorax or pleural effusion. 2. Thoracostomy tube is again noted overlying the right hemithorax. Stable configuration of the endotracheal tube and enteric tube. Dictated by: Dictated on workstation # [id number]
--- NOTE | 2020-01-22 11:41 | Progress Note - Surgery ---
LIDYA HOWELL MED STUDENT 01/22/20 1141: Subjective Date Seen by a Provider: Jan 22, 2020 Time Seen by a Provider: 10:00 Subjective/Events-last exam Per RN Gaye was recently given a large dose of propofol. Eyes open in the room and head wanders around with intermittent non-purposeful LE movement, but does not respond to voice. Spouse states he arrived 20 minutes prior and the patient has been this way and has not attempted to communicate. Focused Exam Lactate Level 01/21/20 07:07: Lactic Acid Level 1.38 Objective Exam Vital Signs Date Time Temp Pulse Resp B/P (MAP) Pulse Ox O2 Delivery O2 Flow Rate FiO2 01/22/20 11:00 36.8 150 16 150/91 (110) 96 Nasal Cannula 2.50 01/22/20 10:00 36.9 130 23 145/94 (111) 96 Nasal Cannula 2.50 01/22/20 09:37 116 28 97 01/22/20 09:00 36.9 63 22 115/66 (82) 97 Mechanical Ventilator 35.00 01/22/20 08:37 56 100/58 01/22/20 08:00 30 Mechanical Ventilator 01/22/20 08:00 36.9 56 22 94/61 (72) 96 Mechanical Ventilator 35.00 01/22/20 07:08 Mechanical Ventilator 35.00 01/22/20 07:00 36.9 58 21 96/55 (69) 95 Mechanical Ventilator 25.00 01/22/20 07:00 56 01/22/20 06:53 59 22 95 35 01/22/20 06:27 36.9 01/22/20 06:24 68 107/59 01/22/20 06:00 37.1 96 27 107/59 (75) 94 Mechanical Ventilator 25.00 01/22/20 05:00 37.0 66 21 106/52 (70) 92 Mechanical Ventilator 25.00 01/22/20 04:00 30 Mechanical Ventilator 01/22/20 04:00 37.0 77 21 111/56 (74) 95 Mechanical Ventilator 25.00 01/22/20 03:55 69 126/81 01/22/20 03:45 Mechanical Ventilator 25.00 01/22/20 03:00 37.0 62 21 117/70 (86) 95 Mechanical Ventilator 30.00 01/22/20 02:04 80 109/67 01/22/20 02:00 37.1 62 22 114/67 (83) 94 Mechanical Ventilator 30.00 01/22/20 01:59 63 22 92 35 01/22/20 01:00 36.9 58 21 128/74 (92) 97 Mechanical Ventilator 30.00 01/22/20 01:00 60 01/22/20 00:00 36.9 59 22 105/60 (75) 97 Mechanical Ventilator 30.00 01/22/20 00:00 30 Mechanical Ventilator 01/21/20 23:41 60 111/62 01/21/20 23:00 36.9 60 21 109/67 (81) 96 Mechanical Ventilator 30.00 01/21/20 22:00 36.9 61 22 107/65 (79) 97 Mechanical Ventilator 30.00 01/21/20 21:45 63 22 96 35 01/21/20 21:27 81 106/57 01/21/20 21:08 Mechanical Ventilator 30.00 01/21/20 21:00 37.2 71 22 106/57 (73) 98 Mechanical Ventilator 35.00 01/21/20 20:00 35 Mechanical Ventilator 01/21/20 20:00 37.1 71 21 102/57 (72) 92 Mechanical Ventilator 35.00 01/21/20 19:26 64 99/54 01/21/20 19:15 Mechanical Ventilator 35.00 01/21/20 19:00 64 22 96 35 01/21/20 19:00 37.4 63 22 112/68 (83) 96 Mechanical Ventilator 40.00 01/21/20 19:00 65 01/21/20 18:00 37.5 64 21 101/56 (71) 95 Mechanical Ventilator 40.00 01/21/20 17:16 64 100/61 01/21/20 17:00 37.5 63 21 98/57 (71) 95 Mechanical Ventilator 40.00 01/21/20 16:30 Mechanical Ventilator 01/21/20 16:00 37.4 64 26 101/60 (74) 95 Mechanical Ventilator 40.00 01/21/20 15:34 63 97/60 01/21/20 15:00 37.3 61 21 91/53 (66) 94 Mechanical Ventilator 40.00 01/21/20 14:20 61 22 94 35 01/21/20 14:00 37.1 61 22 85/54 (64) 94 Mechanical Ventilator 40.00 01/21/20 13:00 36.9 64 22 98/60 (73) 98 Mechanical Ventilator 40.00 01/21/20 13:00 65 91/54 01/21/20 12:38 62 01/21/20 12:20 Mechanical Ventilator 01/21/20 12:00 36.7 62 22 87/53 (64) 96 Mechanical Ventilator 40.00 I & O 01/22/20 07:00 Intake Total 2715 ml Output Total 1160 ml Balance 1555 ml Capillary Refill : Greater Than 3 Seconds General Appearance: No Apparent Distress, Chronically ill, Other (intubated) HEENT: Normal ENT Inspection, Pharynx Normal, Other (thoravent in the right chest, connected to [facility] suction device. small skin wound with coagulated blood several centimeters superolaterally in the left chest from prior chest tube without surrounding erythema or edema. ) Neck: Full Range of Motion, Non Tender, Supple Respiratory: Lungs Clear Cardiovascular: Regular Rate, Rhythm Peripheral Pulses: 2+ Radial Pulses (R), 2+ Radial Pulses (L) Gastrointestinal: non tender, soft, no organomegaly Extremity: Normal Capillary Refill, Normal Inspection, No Pedal Edema Skin: Normal Color, Warm/Dry Lymphatic: No Adenopathy Results Lab Laboratory Tests 01/21/20 17:31: Glucometer 125H 01/22/20 01:37: Glucometer 128H 01/22/20 03:29: Blood Gas Puncture Site RIGHT RADIAL, Blood Gas Patient Temperature 37.1, Art erial Blood pH 7.44H, Arterial Blood Partial Pressure CO2 32L, Arterial Blood Partial Pressure O2 101H, Arterial Blood HCO3 21L, Arterial Blood Total CO2 22.3, Arterial Blood Oxygen Saturation 99, Arterial Blood Base Excess -2.1, Scooby Test YES-POS, Blood Gas Ventilator Setting YES, Blood Gas Inspired Oxygen 30% 01/22/20 05:27: White Blood Count 10.5, Red Blood Count 3.51L, Hemoglobin 10.2L, Hematocrit 29L, Mean Corpuscular Volume 84, Mean Corpuscular Hemoglobin 29, Mean Corpuscular Hemoglobin Concent 35, Red Cell Distribution Width 14.5, Platelet Count 268, Mean Platelet Volume 9.8, Neutrophils (%) (Auto) 69, Lymphocytes (%) (Auto) 24, Monocytes (%) (Auto) 6, Eosinophils (%) (Auto) 1, Basophils (%) (Auto) 1, Neutrophils # (Auto) 7.2, Lymphocytes # (Auto) 2.5, Monocytes # (Auto) 0.6, Eosinophils # (Auto) 0.1, Basophils # (Auto) 0.1, Sodium Level 138, Potassium Level 3.1L, Chloride Level 109H, Carbon Dioxide Level 19L, Anion Gap 10, Blood Urea Nitrogen 6L, Creatinine 0.74, Estimat Glomerular Filtration Rate > 60, BUN/Creatinine Ratio 8, Glucose Level 113H, Calcium Level 8.1L, Phosphorus Level 2.4, Magnesium Level 1.7 Microbiology 01/21/20 MRSA Screen - Final, Complete MRSA not isolated 01/20/20 Urine Culture - Preliminary, Resulted Gram Negative Bacillus 1 Assessment/Plan Assessment/Plan Admission Diagonsis medication overdose Assessment/Plan Pneumothorax Drug Overdose Respiratory Failure chest tube placement Repeat CXR this morning did not reveal pneumothorax Disconnected thoravent from [facility] suction device. Thoravent still in place patient currently under influence of recent sedative medications will follow Dr. Hutson recommendations on patient plan Recheck CXR in 4 to 6 hours Clinical Quality Measures DVT/VTE Risk/Contraindication: Risk Factor Score Per Nursin RFS Level Per Nursing on Admit: 2=Moderate CAROLE HUNT DO 01/22/20 1517: Subjective Subjective/Events-last exam Patient just extubated. Eyes open and confused. Does not speak. Boyfriend at bedside. Thoravent in place right chest anteriorly. No air leak. No nursing concerns at this time. Objective Exam General Appearance: No Apparent Distress HEENT: PERRL/EOMI, Normal ENT Inspection Neck: Normal Inspection, Non Tender Respiratory: Lungs Clear, Other (right chest thoravent in place\) Cardiovascular: Regular Rate, Rhythm, No Edema Gastrointestinal: non tender, soft, no organomegaly Extremity: Normal Capillary Refill, Normal Inspection Neurologic/Psychiatric: Alert; No Oriented x3 Skin: Normal Color, Warm/Dry Lymphatic: No Adenopathy Assessment/Plan Assessment/Plan Assessment/Plan Right Pneumothorax Drug Overdose Respiratory Failure Thoravent in place Repeat CXR this morning did not reveal pneumothorax will take off atrium patient currently under influence of recent sedative medications- monitor will follow Dr. Hutson recommendations on patient plan Recheck CXR in 4 to 6 hours Supervisory-Addendum Brief Verification & Attestation Participated in pt care: history, MDM, physical Personally performed: exam, history, MDM, supervision of care Care discussed with: Medical Student Procedures: n/a Results interpretation: Verified all documentation Verification and Attestation of Medical Student E/M Service A medical student performed and documented this service in my presence. I reviewed and verified all information documented by the medical student and made modifications to such information, when appropriate. I personally performed the physical exam and medical decision making. Carole Hunt, Jan 22, 2020,15:16 LIDYA HOWELL MED STUDENT Jan 22, 2020 11:41 CAROLE HUNT DO Jan 22, 2020 15:17
--- NOTE | 2020-01-22 12:30 | Progress Note - Hospitalist ---
Subjective HPI/CC On Admission Date Seen by Provider: Jan 22, 2020 Time Seen by Provider: 11:00 CC: OD HPI: This is a 39yoWF clinic patient of [facility] who presents to ER after a suicide attempt with Elavil and Latuda. Patient intubated and currently stable but critical. Subjective/Events-last exam Extubated now Patient anxious so ordered Xanax Vitals stable CHecked labs and imaging Review of Systems General: Fatigue, Malaise Neurological: Confusion Focused Exam Lactate Level 01/21/20 07:07: Lactic Acid Level 1.38 Objective Exam Vital Signs Vital Signs Date Time Temp Pulse Resp B/P (MAP) Pulse Ox O2 Delivery O2 Flow Rate FiO2 01/23/20 03:35 37.4 83 18 152/90 (110) 93 Room Air 01/22/20 11:00 2.50 01/22/20 06:53 35 Capillary Refill : Greater Than 3 Seconds General Appearance: No Apparent Distress, WD/WN Respiratory: Chest Non Tender, Lungs Clear, Normal Breath Sounds, No Accessory Muscle Use, No Respiratory Distress Cardiovascular: Regular Rate, Rhythm, No Edema, No Gallop, No JVD, No Murmur, Normal Peripheral Pulses Neurologic/Psychiatric: Alert, Depressed Affect, Disoriented Results/Procedures Lab Laboratory Tests 01/23/20 04:18 Patient resulted labs reviewed. Assessment/Plan Assessment and Plan Assess & Plan/Chief Complaint Assessment: Suicide attempt s/p VDRF Plan: Monitor closely IS Xanax for anxiety Diagnosis/Problems Diagnosis/Problems (1) Drug overdose Status: Acute Qualifiers: Encounter type: initial encounter Injury intent: intentional self-harm Qualified Codes: T50.902A - Poisoning by unspecified drugs, medicaments and biological substances, intentional self-harm, initial encounter (2) Suicide attempt by adequate means Status: Acute Qualifiers: Encounter type: initial encounter Qualified Codes: X83.8XXA - Intentional self-harm by other specified means, initial encounter Clinical Quality Measures DVT/VTE Risk/Contraindication: Risk Factor Score Per Nursin RFS Level Per Nursing on Admit: 2=Moderate SIMON ARMAS DO Jan 22, 2020 12:30
--- NOTE | 2020-01-22 12:35 | Occ Therapy Progress Note ---
Therapy Progress Note Pt continues intubated. Will follow. SUGEY PINEDA OT Jan 22, 2020 12:35
[2020-01-22] MEDS: ALPRAZolam 0.5 MG (XANAX) TAB PO PRN (15:35)
--- NOTE | 2020-01-22 15:57 | Diagnostic Imaging Report ---
EXAMINATION: Chest 1 view. HISTORY: Follow-up right pneumothorax. COMPARISON: Chest radiograph performed earlier the same date. FINDINGS: There has been interval removal of the endotracheal tube and enteric tube. Stable configuration of a right thoracostomy tube. The lung volumes are normal. Patchy bibasilar opacities are seen. No focal consolidation is seen. No appreciable pneumothorax is seen on the right. No large pleural effusion. The cardiomediastinal silhouette is normal in size and contour. No acute osseous abnormality is seen. IMPRESSION: 1. No appreciable pneumothorax with stable configuration of the right thoracostomy tube. 2. Unchanged bibasilar opacities. 3. Interval removal of the endotracheal tube and enteric tube. Dictated by: Dictated on workstation # [id number]
[2020-01-22] MEDS ORDERED: ONDANSETRON 4 MG/2 ML (SDV) Z0FRAN IVP ONE (16:15)
[2020-01-22] MEDS ORDERED: ONDANSETRON 4 MG (ZOFRAN) ORAL DISSOLVE TAB ONE (16:39)
[2020-01-23] VITALS (8 sets, daily range): BP systolic 134–163; BP diastolic 83–102
[2020-01-23] MEDS: PIPERACILLIN/TAZOBACTAM (BULK) 4.5 GM in NS (IVPB) 100 ML IV SCH (04:17)
[2020-01-23 04:38] LABS: BASOPHILS % (AUTO) 0 % (0-10); EOSINOPHILS # (AUTO) 0.1 10^3/uL (0.0-0.3); EOSINOPHILS % (AUTO) 1 % (0-10); HEMATOCRIT 30 % (35-52); HEMOGLOBIN 10.3 G/DL (11.5-16.0); LYMPHOCYTES # (AUTO) 2.5 X 10^3 (1.0-4.0); LYMPHOCYTES % (AUTO) 17 % (12-44); MEAN CORPUSCULAR HEMOGLOBIN 28 PG (25-34); MEAN CORPUSCULAR HGB CONC 34 G/DL (32-36); MEAN CORPUSCULAR VOLUME 83 FL (80-99); MEAN PLATELET VOLUME 9.9 FL (7.4-10.4); MONOCYTES # (AUTO) 0.9 X 10^3 (0.0-1.0); MONOCYTES % (AUTO) 7 % (0-12); NEUTROPHILS # (AUTO) 10.9 X 10^3 (1.8-7.8); NEUTROPHILS % (AUTO) 75 % (42-75); PLATELET COUNT 246 10^3/uL (130-400); WHITE BLOOD COUNT 14.5 10^3/uL (4.3-11.0)
[2020-01-23 04:52] LABS: CHLORIDE 106 MMOL/L (98-107); POTASSIUM 2.9 MMOL/L (3.6-5.0); SODIUM 139 MMOL/L (135-145)
[2020-01-23 04:54] LABS: GLUCOSE 111 MG/DL (70-105)
[2020-01-23 04:55] LABS: CARBON DIOXIDE 19 MMOL/L (21-32)
[2020-01-23 04:57] LABS: PHOSPHORUS 3.3 MG/DL (2.3-4.7)
[2020-01-23 04:58] LABS: CREATININE SERUM 0.65 MG/DL (0.60-1.30); GFR ESTIMATED > 60
[2020-01-23 04:59] LABS: BUN/CREATININE RATIO 5
[2020-01-23 05:00] LABS: MAGNESIUM 1.7 MG/DL (1.6-2.4)
[2020-01-23] MEDS: POTASSIUM CL 10MEQ/50ML IVPB 50 ML IV SCH (06:08)
[2020-01-23] MEDS: MAGNESIUM 1 GM/100 ML IVPB 100 ML IV SCH (06:08)
[2020-01-23] MEDS: LACTATED RINGERS 1,000 ML IV SCH (06:09)
[2020-01-23] MEDS: fentaNYL INJECTION 1,250 MCG in NS (IVPB) 250 ML IV SCH (06:09)
[2020-01-23] MEDS: KCL 20 MEQ TAB (K-DUR) PO SCH (06:09)
[2020-01-23] MEDS: ENOXAPARIN 40 MG/0.4 ML (LOVENOX) SYR SC SCH (06:22)
--- NOTE | 2020-01-23 06:24 | Progress Note - Hospitalist ---
Subjective HPI/CC On Admission Date Seen by Provider: Jan 23, 2020 Time Seen by Provider: 11:00 CC: OD HPI: This is a 39yoWF clinic patient of [facility] who presents to ER after a suicide attempt with Elavil and Latuda. Patient intubated and currently stable but critical. Subjective/Events-last exam Patient doing much better at the bedside Would like to go home but chest tube still in place in the right anterior chest wall Spoke with Dr. Hunt and he will likely remove it tomorrow Replacing potassium We will ambulate and discontinue the IV that hurts in her right arm to prepare for discharge tomorrow Eating and drinking and bowels are moving well Denies SI Review of Systems General: Fatigue, Malaise Focused Exam Lactate Level 01/21/20 07:07: Lactic Acid Level 1.38 Objective Exam Vital Signs Vital Signs Date Time Temp Pulse Resp B/P (MAP) Pulse Ox O2 Delivery O2 Flow Rate FiO2 01/23/20 15:38 36.8 80 18 137/85 (102) 96 Room Air 01/22/20 11:00 2.50 01/22/20 06:53 35 Capillary Refill : Less Than 3 Seconds General Appearance: No Apparent Distress, WD/WN Respiratory: Chest Non Tender, Lungs Clear, Normal Breath Sounds, No Accessory Muscle Use, No Respiratory Distress Cardiovascular: Regular Rate, Rhythm, No Edema, No Gallop, No JVD, No Murmur, Normal Peripheral Pulses Neurologic/Psychiatric: Alert, Oriented x3, No Motor/Sensory Deficits, Normal Mood/Affect Results/Procedures Lab Laboratory Tests 01/23/20 04:18 Patient resulted labs reviewed. Assessment/Plan Assessment and Plan Assess & Plan/Chief Complaint Assessment: Suicide attempt s/p VDRF Right PTX s/p chest tube Plan: Monitor closely IS Xanax for anxiety Move to 4th CT per Dr Hunt Diagnosis/Problems Diagnosis/Problems (1) Drug overdose Status: Acute Qualifiers: Encounter type: initial encounter Injury intent: intentional self-harm Qualified Codes: T50.902A - Poisoning by unspecified drugs, medicaments and biological substances, intentional self-harm, initial encounter (2) Suicide attempt by adequate means Status: Acute Qualifiers: Encounter type: initial encounter Qualified Codes: X83.8XXA - Intentional self-harm by other specified means, initial encounter Clinical Quality Measures DVT/VTE Risk/Contraindication: Risk Factor Score Per Nursin RFS Level Per Nursing on Admit: 2=Moderate SIMON ARMAS DO Jan 23, 2020 06:24
[2020-01-23] MEDS ORDERED: KCL 20 MEQ TAB (K-DUR) PO ONE ×4 (08:00→17:00)
--- NOTE | 2020-01-23 08:00 | NUR ---
REPORT RECEIVED AND ASSESSMENT COMPLETED. ASSISTED PATIENT TO RESTROOM WITH SBA. PT DENIES ANY SUICIDAL IDEATION. SHE STATES THAT SHE JUST HAD A HARD TIME COPING WITH THE OF HER DOG. PT SITS UP IN THE CHAIR. NOTIFIED THAT THERE WERE MULTIPLE PEOPLE ATTEMPTING TO VISIT THE PATIENT. THIS RN ASKED THE PATIENT WHO SHE WANTED TO BE HER VISITOR FOR TODAY. PATIENT STATED SHE WANTED "MY " TO VISIT. EDUCATION TECHNICIAN NOTIFIED AND WILL BE ALLOWED TO ENTER. PATIENT STATES THAT HER DAUGHTER WAS "UPSET" AT HIM BUT DID NOT FURTHER ELABORATE. PATIENT DENIED ANY NEEDS AT THIS TIME. CALL LIGHT LIGHT WITHIN REACH.
--- NOTE | 2020-01-23 08:23 | Progress Note - Surgery ---
LIDYA HOWELL MED STUDENT 01/23/20 0823: Subjective Date Seen by a Provider: Jan 23, 2020 Time Seen by a Provider: 07:00 Subjective/Events-last exam Patient now awake, alert, oriented. Thoravent still in place. Pt would like to return home. Denies medical complaints. Denies SOB, chest pain, nausea, vomiting, fever, chills, and pain. States bowels have been moving, 5x overnight. Expresses regret for suicide attempt, states was in a bad place when her dog . Denies regular alcohol use. PMH bipolar and depression. PSH 2x D&C, no other surgeries. Focused Exam Lactate Level 01/21/20 07:07: Lactic Acid Level 1.38 Objective Exam Vital Signs Date Time Temp Pulse Resp B/P (MAP) Pulse Ox O2 Delivery O2 Flow Rate FiO2 01/23/20 03:35 37.4 83 18 152/90 (110) 93 Room Air 01/23/20 00:00 37.6 89 18 155/87 (109) 94 Room Air 01/22/20 21:00 95 Room Air 01/22/20 20:00 37.4 91 18 144/84 (104) 95 Room Air 01/22/20 16:00 37.6 96 Room Air 01/22/20 16:00 96 26 154/100 (118) Room Air 01/22/20 16:00 Room Air 01/22/20 15:00 101 18 138/80 (99) 96 Room Air 01/22/20 14:29 101 01/22/20 13:00 104 01/22/20 12:00 101 18 138/80 (99) 96 Room Air 01/22/20 12:00 Room Air 01/22/20 11:00 36.8 150 16 150/91 (110) 96 Nasal Cannula 2.50 01/22/20 10:00 36.9 130 23 145/94 (111) 96 Nasal Cannula 2.50 01/22/20 09:37 116 28 97 01/22/20 09:00 36.9 63 22 115/66 (82) 97 Mechanical Ventilator 35.00 01/22/20 08:37 56 100/58 I & O 01/23/20 07:00 Intake Total 2025 ml Output Total 3100 ml Balance -1075 ml Capillary Refill : Less Than 3 Seconds General Appearance: No Apparent Distress, WD/WN HEENT: PERRL/EOMI, Normal ENT Inspection Neck: Normal Inspection, Non Tender Respiratory: Chest Non Tender, Lungs Clear, Normal Breath Sounds, No Accessory Muscle Use, No Respiratory Distress, Other (thoravent in place in right chest wall. Tape partially obscuring view but no apparent erythema or cellulitis in the area. Not connected to suction.) Cardiovascular: Regular Rate, Rhythm, No Edema, No Gallop, No JVD, No Murmur, Normal Peripheral Pulses Peripheral Pulses: 2+ Radial Pulses (R), 2+ Radial Pulses (L) Gastrointestinal: non tender, soft, no organomegaly Extremity: Normal Capillary Refill, Normal Inspection Neurologic/Psychiatric: Alert, Oriented x3, Normal Mood/Affect Skin: Normal Color, Warm/Dry Lymphatic: No Adenopathy Results Lab Laboratory Tests 01/23/20 04:18: White Blood Count 14.5H, Red Blood Count 3.64L, Hemoglobin 10.3L, Hematocrit 30L , Mean Corpuscular Volume 83, Mean Corpuscular Hemoglobin 28, Mean Corpuscular Hemoglobin Concent 34, Red Cell Distribution Width 14.6H, Platelet Count 246, Mean Platelet Volume 9.9, Neutrophils (%) (Auto) 75, Lymphocytes (%) (Auto) 17, Monocytes (%) (Auto) 7, Eosinophils (%) (Auto) 1, Basophils (%) (Auto) 0, Neutrophils # (Auto) 10.9H, Lymphocytes # (Auto) 2.5, Monocytes # (Auto) 0.9, Eosinophils # (Auto) 0.1, Basophils # (Auto) 0.0, Sodium Level 139, Potassium Level 2.9L, Chloride Level 106, Carbon Dioxide Level 19L, Anion Gap 14, Blood Urea Nitrogen 3L, Creatinine 0.65, Estimat Glomerular Filtration Rate > 60, BUN/Creatinine Ratio 5, Glucose Level 111H, Calcium Level 8.0L, Phosphorus Level 3.3, Magnesium Level 1.7 Microbiology 01/21/20 MRSA Screen - Final, Complete MRSA not isolated 01/20/20 Urine Culture - Final, Complete Klebsiella pneumoniae Assessment/Plan Assessment/Plan Assessment/Plan Right Pneumothorax Drug Overdose Respiratory Failure Thoravent in place CXR yesterday afternoon and this morning no evidence of PTX will remove Thoravent device and Recheck CXR will follow Dr. Hutson recommendations on patient disposition and overall management Clinical Quality Measures DVT/VTE Risk/Contraindication: Risk Factor Score Per Nursin RFS Level Per Nursing on Admit: 2=Moderate CAROLE HUNT DO 01/23/201939: Subjective Subjective/Events-last exam Patient breathing okay. No pain at this time. No shortness of breath. Wanting to go home. Denies n/v fever sweats chills shortness of breath or chest pain. Chest x ray no pneumothorax on right at this time, thoravent in place. Very minimal movement of the diaphragm. Objective Exam General Appearance: No Apparent Distress, WD/WN HEENT: PERRL/EOMI, Normal ENT Inspection Neck: Normal Inspection, Non Tender Respiratory: Chest Non Tender, No Accessory Muscle Use, No Respiratory Distress Cardiovascular: Regular Rate, Rhythm, No JVD Gastrointestinal: non tender, soft, no organomegaly Extremity: Normal Capillary Refill, Normal Inspection Neurologic/Psychiatric: Alert, Oriented x3 Skin: Normal Color, Warm/Dry Lymphatic: No Adenopathy Assessment/Plan Assessment/Plan Assessment/Plan Right Pneumothorax Drug Overdose Respiratory Failure-extubated hypokalemia thoravent in place no pneumo on chest x ray likely remove tomorrow replace k Supervisory-Addendum Brief Verification & Attestation Participated in pt care: history, MDM, physical Personally performed: exam, history, MDM, supervision of care Care discussed with: Medical Student Procedures: n/a Results interpretation: Verified all documentation Verification and Attestation of Medical Student E/M Service A medical student performed and documented this service in my presence. I reviewed and verified all information documented by the medical student and made modifications to such information, when appropriate. I personally performed the physical exam and medical decision making. Carole Hunt, Jan 23, 2020,19:40 LIDYA HOWELL MED STUDENT Jan 23, 2020 08:23 CAROLE HUNT DO Jan 23, 2020 19:40
--- NOTE | 2020-01-23 08:40 | Diagnostic Imaging Report ---
INDICATION: Overdose. History of pneumothorax COMPARISON: 01/22/2020 FINDINGS: Single frontal radiographic view of the chest was obtained. Small bore chest tube is again identified projecting over the right upper chest. There is no recurrent or residual pneumothorax on either side. Lungs are clear. No large effusion is seen. Cardiac silhouette and pulmonary vasculature are within normal limits. Osseous structures show no new acute abnormalities. IMPRESSION: 1. Small bore right-sided chest tube. No pneumothorax. Dictated by: Dictated on workstation # [id number]
[2020-01-23] MEDS: PANTOPRAZOLE 40 MG (PROTONIX) VIAL IV SCH (09:13)
[2020-01-23] MEDS ORDERED: MELATONIN 3 MG TABLET PO PRN (12:30)
[2020-01-23] MEDS ORDERED: DOCUSATE SODIUM 100 MG (COLACE) CAP PO PRN (12:30)
[2020-01-23] MEDS ORDERED: ACETAMINOPHEN 500 MG TAB (TYLENOL) PO PRN (12:30)
[2020-01-23] MEDS ORDERED: LOPERAMIDE 2 MG (IMODIUM) TABLET PO PRN (12:30)
[2020-01-23] MEDS ORDERED: diphenhydrAMINE 25 MG TAB (BENADRYL) PO PRN (12:30)
[2020-01-23] MEDS ORDERED: CALCIUM CARBONATE 500 MG (TUMS) TAB.CHEW PO PRN (12:30)
[2020-01-23] MEDS: AUGMENTIN 875 MG TAB (AMOXICILLIN/CLAVULANATE) PO SCH ×2 (13:25→17:46)
--- NOTE | 2020-01-23 13:50 | NUR ---
REPORT CALLED TO MATY PIÑA. PT TO BE TRANSPORTED VIA W/C TO ROOM 414. ALL PERSONAL BELONGINGS WITH PATIENT. AT SIDE.
--- NOTE | 2020-01-23 14:00 | NUR ---
PT TRANSPORTED VIA W/C TO ROOM 414 WITH ALL PERSONAL BELONGINGS. PT AT SIDE.
--- NOTE | 2020-01-23 14:05 | NUR ---
PT ICU TRANSFER TO ROOM 414. AT SIDE. NEEDS MET AT THIS TIME.
[2020-01-23] MEDS: SENNA W/DOCUSATE (SENOKOT S) TABLET PO SCH (20:26)
[2020-01-23] MEDS: ALPRAZolam 0.5 MG (XANAX) TAB PO PRN (23:51)
[2020-01-24] MEDS: HYDROcodone/APAP 5 MG/325 MG (LORTAB) TAB PO PRN ×4 (03:13→17:46)
[2020-01-24 03:29] VITALS: BP 138/84
[2020-01-24 05:01] LABS: BASOPHILS % (AUTO) 0 % (0-10); EOSINOPHILS # (AUTO) 0.2 10^3/uL (0.0-0.3); EOSINOPHILS % (AUTO) 2 % (0-10); HEMATOCRIT 32 % (35-52); LYMPHOCYTES # (AUTO) 2.3 X 10^3 (1.0-4.0); LYMPHOCYTES % (AUTO) 19 % (12-44); MEAN CORPUSCULAR HEMOGLOBIN 29 PG (25-34); MEAN CORPUSCULAR HGB CONC 34 G/DL (32-36); MEAN CORPUSCULAR VOLUME 83 FL (80-99); MEAN PLATELET VOLUME 9.5 FL (7.4-10.4); MONOCYTES # (AUTO) 0.7 X 10^3 (0.0-1.0); MONOCYTES % (AUTO) 6 % (0-12); NEUTROPHILS # (AUTO) 8.7 X 10^3 (1.8-7.8); NEUTROPHILS % (AUTO) 73 % (42-75); PLATELET COUNT 267 10^3/uL (130-400); WHITE BLOOD COUNT 11.9 10^3/uL (4.3-11.0)
[2020-01-24 05:33] LABS: ALBUMIN 3.9 GM/DL (3.2-4.5); CHLORIDE 106 MMOL/L (98-107); POTASSIUM 3.1 MMOL/L (3.6-5.0); SODIUM 139 MMOL/L (135-145)
[2020-01-24 05:34] LABS: CALCIUM 8.4 MG/DL (8.5-10.1)
[2020-01-24 05:35] LABS: GLUCOSE 135 MG/DL (70-105)
[2020-01-24 05:36] LABS: TOTAL PROTEIN 6.6 GM/DL (6.4-8.2)
[2020-01-24 05:37] LABS: BILIRUBIN,TOTAL 0.4 MG/DL (0.1-1.0); CARBON DIOXIDE 23 MMOL/L (21-32)
[2020-01-24 05:39] LABS: ALKALINE PHOSPHATASE 63 U/L (40-136); CREATININE SERUM 0.69 MG/DL (0.60-1.30); GFR ESTIMATED > 60
[2020-01-24 05:40] LABS: BUN/CREATININE RATIO 6
[2020-01-24 05:42] LABS: ALANINE AMINOTRANSFERASE 36 U/L (0-55)
[2020-01-24] MEDS: ENOXAPARIN 40 MG/0.4 ML (LOVENOX) SYR SC SCH (06:03)
[2020-01-24] MEDS ORDERED: KCL 20 MEQ TAB (K-DUR) PO ONE (06:45)
[2020-01-24 08:00] VITALS: BP 144/91
--- NOTE | 2020-01-24 08:17 | Progress Note - Surgery ---
LIDYA HOWELL MED STUDENT 01/24/20 0816: Subjective Date Seen by a Provider: Jan 24, 2020 Time Seen by a Provider: 06:50 Subjective/Events-last exam pt reports difficulty sleeping in hospital. Expresses some discomfort with Thoravent. Denies other CP, denies n/v, fever, chills, abdominal pain, con stipation, diarrhea. reports no medical concerns aside from Thoravent. Potassium was given after found to be 2.9 yesterday, was 3.1 upon recheck at 4am today Objective Exam Vital Signs Date Time Temp Pulse Resp B/P (MAP) Pulse Ox O2 Delivery O2 Flow Rate FiO2 01/24/20 03:29 37.0 69 20 138/84 (102) 95 Room Air 01/23/20 23:11 36.8 81 18 134/83 (100) 97 Room Air 01/23/20 21:00 Room Air 01/23/20 19:06 37.3 94 20 134/88 (103) 97 Room Air 01/23/20 15:38 36.8 80 18 137/85 (102) 96 Room Air 01/23/20 15:00 96 Room Air 01/23/20 14:00 36.5 90 18 160/94 (116) 97 Room Air 01/23/20 12:00 36.8 93 161/89 (113) 94 Room Air I & O 01/24/20 07:00 Intake Total 2170 ml Balance 2170 ml Capillary Refill : Less Than 3 Seconds General Appearance: No Apparent Distress, WD/WN HEENT: PERRL/EOMI, Normal ENT Inspection Neck: Normal Inspection, Non Tender Respiratory: Chest Non Tender, Lungs Clear, Normal Breath Sounds, No Accessory Muscle Use, No Respiratory Distress, Other (thoravent in place right chest wall. No surrounding cellulitis. Tape partially obscures view of surrounding tissue) Cardiovascular: Regular Rate, Rhythm, No JVD Peripheral Pulses: 2+ Radial Pulses (R), 2+ Radial Pulses (L) Gastrointestinal: non tender, soft, no organomegaly Extremity: Normal Capillary Refill, Normal Inspection Neurologic/Psychiatric: Alert, Oriented x3 Skin: Normal Color, Warm/Dry Lymphatic: No Adenopathy Results Lab Laboratory Tests 01/24/20 04:48: White Blood Count 11.9H, Red Blood Count 3.86L, Hemoglobin 11.0L, Hematocrit 32L , Mean Corpuscular Volume 83, Mean Corpuscular Hemoglobin 29, Mean Corpuscular Hemoglobin Concent 34, Red Cell Distribution Width 14.1, Platelet Count 267, Mean Platelet Volume 9.5, Neutrophils (%) (Auto) 73, Lymphocytes (%) (Auto) 19, Monocytes (%) (Auto) 6, Eosinophils (%) (Auto) 2, Basophils (%) (Auto) 0, Neutrophils # (Auto) 8.7H, Lymphocytes # (Auto) 2.3, Monocytes # (Auto) 0.7, Eosinophils # (Auto) 0.2, Basophils # (Auto) 0.0, Sodium Level 139, Potassium Level 3.1L, Chloride Level 106, Carbon Dioxide Level 23, Anion Gap 10, Blood Urea Nitrogen 4L, Creatinine 0.69, Estimat Glomerular Filtration Rate > 60, BUN/Creatinine Ratio 6, Glucose Level 135H, Calcium Level 8.4L, Corrected Calcium 8.5, Total Bilirubin 0.4, Aspartate Amino Transf (AST/SGOT) 25, Alanine Aminotransferase (ALT/SGPT) 36, Alkaline Phosphatase 63, Total Protein 6.6, Albumin 3.9 Microbiology 01/21/20 MRSA Screen - Final, Complete MRSA not isolated 01/20/20 Urine Culture - Final, Complete Klebsiella pneumoniae Assessment/Plan Assessment/Plan Assessment/Plan Right Pneumothorax Drug Overdose Respiratory Failure-extubated hypokalemia thoravent in place no pneumo on chest x ray yesterday potassium still low continue to replace remove thoravent when k at acceptable level for return home Clinical Quality Measures DVT/VTE Risk/Contraindication: Risk Factor Score Per Nursin RFS Level Per Nursing on Admit: 2=Moderate CAROLE HUNT DO 01/24/20 1607: Subjective Subjective/Events-last exam Wanting thoravent out. Causes some discomfort for her. Breathing okay. No new complaints. Denies n/v fever sweats chills shortness of breath or chest pain. Wanting to go home. Objective Exam General Appearance: No Apparent Distress, WD/WN HEENT: PERRL/EOMI, Normal ENT Inspection Neck: Normal Inspection, Non Tender Respiratory: Chest Non Tender, No Accessory Muscle Use, No Respiratory Distress Cardiovascular: Regular Rate, Rhythm, No JVD Gastrointestinal: non tender, soft, no organomegaly Extremity: Normal Capillary Refill, Normal Inspection Neurologic/Psychiatric: Alert, Oriented x3 Skin: Normal Color, Warm/Dry Lymphatic: No Adenopathy Assessment/Plan Assessment/Plan Assessment/Plan Right Pneumothorax Drug Overdose Respiratory Failure-extubated hypokalemia thoravent in place no pneumo on chest x ray today so will remove thoravent and repeat chest x ray in 4 hrs. If no pneumo okay to dc from surgical standpoint. Supervisory-Addendum Brief Verification & Attestation Participated in pt care: history, MDM, physical Personally performed: exam, history, MDM, supervision of care Care discussed with: Medical Student Procedures: n/a Results interpretation: Verified all documentation Verification and Attestation of Medical Student E/M Service A medical student performed and documented this service in my presence. I reviewed and verified all information documented by the medical student and made modifications to such information, when appropriate. I personally performed the physical exam and medical decision making. Carole Hunt, Jan 24, 2020,16:06 LIDYA HOWELL MED STUDENT Jan 24, 2020 08:16 CAROLE HUNT DO Jan 24, 2020 16:07
[2020-01-24] MEDS: PANTOPRAZOLE 40 MG (PROTONIX) VIAL IV SCH (08:19)
[2020-01-24] MEDS: SENNA W/DOCUSATE (SENOKOT S) TABLET PO SCH (08:20)
[2020-01-24] MEDS: AUGMENTIN 875 MG TAB (AMOXICILLIN/CLAVULANATE) PO SCH ×2 (08:20→17:46)
[2020-01-24] MEDS: ONDANSETRON 4 MG (ZOFRAN) ORAL DISSOLVE TAB PO PRN ×3 (08:29→17:47)
[2020-01-24 12:00] VITALS: BP 141/83
[2020-01-24] MEDS ORDERED: KCL 20 MEQ TAB (K-DUR) PO NR (12:00)
[2020-01-24] MEDS ORDERED: AMOX1TAB12 PO (12:33)
[2020-01-24] MEDS ORDERED: POTA20TA15 PO (12:33)
[2020-01-24] MEDS ORDERED: ACHD5005 PO (12:33)
--- NOTE | 2020-01-24 12:34 | Diagnostic Imaging Report ---
INDICATION: Pneumothorax. Comparison made with prior examination 01/23/2020. FINDINGS: The heart size is stable. Lungs are clear. There is no pleural effusion. There is no residual pneumothorax. Mediastinum is unremarkable. IMPRESSION: No significant residual pneumothorax. Dictated by: Dictated on workstation # [id number]
--- NOTE | 2020-01-24 12:35 | Discharge Summary ---
Discharge Summary Hospital Course Was the Problem List Reviewed?: Yes Problems/Dx: (1) Drug overdose Status: Acute Qualifiers: Qualified Codes: T50.902A - Poisoning by unspecified drugs, medicaments and biological substances, intentional self-harm, initial encounter (2) Suicide attempt by adequate means Status: Acute Qualifiers: Qualified Codes: X83.8XXA - Intentional self-harm by other specified means, initial encounter Hospital Course Date of Admission: Jan 20, 2020 at 22:57 Admission Diagnosis : Family Physician/Provider: [facility] Date of Discharge: 01/24/20 Discharge Diagnosis: OD suicide attempt, right sided PTX s/p chest tube placement, s/p VDRF Hospital Course: Patient had a standard hospital course following ER intubation for resp failure after OD on Latuda and CYmbalta in suicide gesture of which now she denies and will not do anything like that again. Patient had right sided PTX requiring chest tube placement of which was managed by Dr Hunt. Patient was extubated without difficulty and patient required aggressive potassium supplement. Patient was able to be DC after CT removed and will be seen in close f/u with [facility]. Labs and Pending Lab Test: Laboratory Tests 01/24/20 04:48: White Blood Count 11.9H, Red Blood Count 3.86L, Hemoglobin 11.0L, Hematocrit 32L , Mean Corpuscular Volume 83, Mean Corpuscular Hemoglobin 29, Mean Corpuscular Hemoglobin Concent 34, Red Cell Distribution Width 14.1, Platelet Count 267, Mean Platelet Volume 9.5, Neutrophils (%) (Auto) 73, Lymphocytes (%) (Auto) 19, Monocytes (%) (Auto) 6, Eosinophils (%) (Auto) 2, Basophils (%) (Auto) 0, Neutrophils # (Auto) 8.7H, Lymphocytes # (Auto) 2.3, Monocytes # (Auto) 0.7, Eosinophils # (Auto) 0.2, Basophils # (Auto) 0.0, Sodium Level 139, Potassium Level 3.1L, Chloride Level 106, Carbon Dioxide Level 23, Anion Gap 10, Blood Urea Nitrogen 4L, Creatinine 0.69, Estimat Glomerular Filtration Rate > 60, BUN/Creatinine Ratio 6, Glucose Level 135H, Calcium Level 8.4L, Corrected Calcium 8.5, Total Bilirubin 0.4, Aspartate Amino Transf (AST/SGOT) 25, Alanine Aminotransferase (ALT/SGPT) 36, Alkaline Phosphatase 63, Total Protein 6.6, Albumin 3.9 Microbiology 01/21/20 MRSA Screen - Final, Complete MRSA not isolated 01/20/20 Urine Culture - Final, Complete Klebsiella pneumoniae Home Meds Active Potassium Chloride 20 Meq Tab.er.prt 40 Meq PO DAILY Hydrocodone-Acetamin 5-325 mg (Hydrocodone/Acetaminophen) 1 Each Tablet 1 Tab PO Q4H PRN Amox Tr-K Clv 875-125 mg Tab (Amoxicillin/Potassium Clav) 1 Each Tablet 875 Mg PO BID WITH MEALS Reported Carafate (Sucralfate) 1 Gm Tablet 1 Gm PO QID PRN Trileptal (Oxcarbazepine) 300 Mg Tablet 600 Mg PO HS take 2 (300mg) tabs Trileptal (Oxcarbazepine) 300 Mg Tablet 300 Mg PO DAILY Vistaril (Hydroxyzine Pamoate) 50 Mg Capsule 200 Mg PO HS take 2 (50mg) Tab Hydroxyzine Pamoate 50 Mg Capsule 100 Mg PO DAILY take 2 (50mg) Tab Promethazine Tablet (Promethazine HCl) 25 Mg Tablet 25 Mg PO Q6H PRN Pantoprazole Sodium 40 Mg Tablet.dr 40 Mg PO DAILY Orphenadrine Citrate 100 Mg Tablet.er 100 Mg PO BID Cymbalta (Duloxetine HCl) 60 Mg Capsule.dr 60 Mg PO BID Assessment/Pt Instructions [facility] this week Discharge Planning: <30 minutes discharge planning Discharge Instructions Discharge Diet: No Restrictions Activity as Tolerated: Yes Discharge Physical Examination Vital Signs Vital Signs Date Time Temp Pulse Resp B/P (MAP) Pulse Ox O2 Delivery O2 Flow Rate FiO2 01/24/20 12:00 36.6 88 18 141/83 (102) 96 Room Air 01/22/20 11:00 2.50 01/22/20 06:53 35 General Appearance: No Apparent Distress, WD/WN, Chronically ill Respiratory: Lungs Clear Allergies: Coded Allergies: tramadol (Verified Allergy, Unknown, 06/19/16) codeine (Verified Adverse Reaction, Mild, NAUSEA, 01/26/15) Uncoded Allergies: SEANSONAL ENVIRONMENTAL (Allergy, Mild, 01/17/14) Discharge Summary Date of Admission Jan 20, 2020 at 22:57 Date of Discharge Discharge Date: Jan 24, 2020 Admission Diagnosis Assessment: OD Suicide attempt Smoker Plan: Intubation Monitor closely Critical Discharge Diagnosis Assessment: Suicide attempt s/p VDRF Right PTX s/p chest tube Plan: Monitor closely IS Xanax for anxiety Move to 4th CT per Dr Hunt (1) Drug overdose Status: Acute Qualifiers: Qualified Codes: T50.902A - Poisoning by unspecified drugs, medicaments and biological substances, intentional self-harm, initial encounter (2) Suicide attempt by adequate means Status: Acute Qualifiers: Qualified Codes: X83.8XXA - Intentional self-harm by other specified means, initial encounter Clinical Quality Measures DVT/VTE Risk/Contraindication: Risk Factor Score Per Nursin RFS Level Per Nursing on Admit: 2=Moderate SIMON ARMAS DO Jan 24, 2020 12:35
--- NOTE | 2020-01-24 12:44 | Physical Therapy Evaluation ---
PT Evaluation-General Medical Diagnosis Admission Date Jan 20, 2020 at 22:57 Medical Diagnosis: Suicide attempt Onset Date: Jan 21, 2020 Therapy Diagnosis Therapy Diagnosis: none Height/Weight Height (Feet): 5 Height (Inches): 7.00 Weight (Pounds): 223 Weight (Ounces): 0.0 Precautions Precautions/Isolations: Fall Prevention, Standard Precautions Weight Bear Status Right Lower Extremity: Right Full Weight Bearing Left Lower Extremity: Left Full Weight Bearing Referral Physician: Eric Reason for Referral: Evaluation/Treatment Medical History Pertinent Medical History: GERD Additional Medical History regular Etoh use, current everyday smoker, Truong's esophagus, fibromyalgia, scoliosis, chronic back pain, anxiety, depression Current History To ER with suicide attempt, intubated initially. Extubated 01/23/2020. Reviewed History: Yes Social History Home: Single Level Current Living Status: Spouse Entry Into Home: Stairs With Railing PT Steps Into Home: 2 Prior Prior Level of Function SCALE: Activities may be completed with or without assistive devices. 8-Cowuccbkjq-wwcolld completes the activity by him/herself with no assistance from a helper. 5-Set-up or Clean-up Assistance-helper sets up or cleans up; patient completes activity. [place] assists only prior to or following the activity. 4-Supervision or Touching Assistance-helper provides verbal cues and/or touching/steadying and/or contact guard assistance as patient completes activity. Assistance may be provided throughout the activity or intermittently. 3-Partial/Moderate Assistance-helper does LESS THAN HALF the effort. [place] lifts, holds or supports trunk or limbs, but provides less than half the effort. 2-Substantial/Maximal Assistance-helper does MORE THAN HALF the effort. [place] lifts or holds trunk or limbs and provides more than half the effort. 5-Reneawgct-wmbomd does ALL the effort. Patient does none of the effort to complete the activity. Or, the assistance of 2 or more helpers is required for the patient to complete the activity. If activity was not attempted, code reason: 7-Patient Refused. 9-Not Applicable-not attempted and the patient did not perform the activity before the current illness, exacerbation or injury. 10-Not Attempted due to Environmental Limitations-(lack of equipment, weather restraints, etc.). 88-Not Attempted due to Medical Conditions or Safety Concerns. Bed Mobility: 7 Transfers (B,C,W/C): 7 Gait: 7 Stairs: 7 Indoor Mobility (Ambulation): Independent Stairs: Independent Prior Devices Use: None PT Evaluation-Current Subjective Pt up in recliner, anxious to go home. Denies pain, reports functional mobility is at PLOF. Pt/Family Goals Home Objective Patient Orientation: Person, Place, Time, Situation Attachments: Chest Tube ROM/Strength ROM Upper Extremities WFL ROM Lower Extremities WFL Strength Upper Extremities WFL for mobility Strength Lower Extremities WFL for mobility Integumentary/Posture Integumentary See nurses' notes Posture WNL Neuromuscular (Tone, Coordination, Reflexes) Grossly intact Sensory Vision: Functional Hearing: Functional Sensation Right Upper Extremit: Intact Sensation Left Upper Extremity: Intact Sensation Right Lower Extremit: Intact Sensation Left Lower Extremity: Intact Transfers Sit to Stand (QC): 7 Pt stood (I) and donned additional gown (I) without LOB Gait Does the Patient Walk?: Yes Mode of Locomotion: Walk Anticipated Mode of Locomotion: Walk Walk 10 feet (QC): 7 Walk 50 ft with 2 Turns(QC): 7 Walk 150 ft (QC): 7 Distance: 750 Gait Assistive Device: None Comments/Gait Description Smooth, reciprocal gait (I). No safety concerns, Pt reports functional mobility at PLOF. Wheelchair Training Does the Pt Use a Wheelchair?: No Balance Sitting Static: Normal Sitting Dynamic: Normal Standing Static: Normal Standing Dynamic: Normal Treatment Eval. Pt returned to room with all needs met. Assessment/Needs Pt demonstrates safe functional mobility and is at PLOF. No skilled PT intervention indicated. Rehab Potential: Good PT Plan Treatment/Plan Treatment Plan: Discontinue PT Treatment Duration: Jan 24, 2020 Frequency: 1 time per week (Pt seen for evaluation this date with D/C as Pt is at PLOF) Estimated Hrs Per Day: .25 hour per day Patient and/or Family Agrees t: Yes Discharge Recommendations Therapy Discharge Recommendati: Home & Family Time/GCodes Time In: 922 Time Out: 935 Total Billed Treatment Time: 13 Total Billed Treatment 1, TAHIREZEQUIEL x 13' MAYE OHARA DPT Jan 24, 2020 12:44
--- NOTE | 2020-01-24 12:51 | Occ Therapy Progress Note ---
Therapy Progress Note OT order received, chart reviewed. PT completed treatment with this pt. first, and let this OT know that pt. does not need OT services. Pt. is independent with daily skills in room, and is able to ambulate independently. PT has discharged pt. from services. No OT warranted at this time. Discharge pt. [address] OT Jan 24, 2020 12:51
--- NOTE | 2020-01-24 14:41 | NUR ---
PT HAD THORAVENT TAKEN OUT TODAY BY DR LEAL. AREA WAS COVERED WITH XEROFORM AND 4X4 GAUZE AND TAPE. PT C/O PAIN AND DISCOMFORT TO SITE AT 1415, RATING AT A THREE. PT ADMIN HER PRN LORTAB.
--- NOTE | 2020-01-24 14:42 | NUR ---
DR LEAL ORDERED A CHEST XRAY FOR FOURS POST THORAVENT REMOVAL. THIS RN PUT IN ORDER FOR 1630. AFTERWARDS SHE COULD POSSIBLY BE DISCHARGED BY DR LEAL IF XRAY LOOKS OK PER . PT AWARE AND IS RESTING NOW IN BED WITH AT BEDSIDE.
[2020-01-24 16:00] VITALS: BP 165/90
--- NOTE | 2020-01-24 16:59 | Diagnostic Imaging Report ---
INDICATION: Chest tube removal. FINDINGS: The small bore right thoracostomy tube has been removed. Lungs are otherwise clear. No pleural effusion. Mediastinum is unremarkable. IMPRESSION: Interval removal of the right thoracostomy tube. There is no residual pneumothorax. Dictated by: Dictated on workstation # [id number]
== END 2020-01-24 18:00 | disposition home or self-care (01) | DRG 917 ==
LOC: EDUNIT# 20:13 → ER 20:15 → ICU 22:57 → CSD 01-22 14:23 → 4TH 01-23 13:54
PROVIDERS: ADMIT Family Medicine; ATTEND Family Medicine
PROC: 0WP9X0Z Removal of Drainage Device from Right Pleural Cavity, External Approach (ICD-10-PCS; principal; 2020-01-21)
PROC: 0W9930Z Drainage of Right Pleural Cavity with Drainage Device, Percutaneous Approach (ICD-10-PCS; 2020-01-21)
PROC: 5A1945Z Respiratory Ventilation, 24-96 Consecutive Hours (ICD-10-PCS; 2020-01-21)
PROC: 0BH17EZ Insertion of Endotracheal Airway into Trachea, Via Natural or Artificial Opening (ICD-10-PCS; 2020-01-21)
DX: T49 Poisoning by, adverse effect of and underdosing of topical agents primarily affecting skin and mucous membrane and by ophthalmological, otorhinorlaryngological and dental drugs (principal); J96.00 Acute respiratory failure, unspecified whether with hypoxia or hypercapnia; J93.9 Pneumothorax, unspecified; E87.2 Acidosis; N39.0 Urinary tract infection, site not specified; T47 Poisoning by, adverse effect of and underdosing of agents primarily affecting the gastrointestinal system; F17.210 Nicotine dependence, cigarettes, uncomplicated; E87.6 Hypokalemia; D64.9 Anemia, unspecified; F12.90 Cannabis use, unspecified, uncomplicated
CPT/HCPCS: 31500; 36415; 51702; 71045; 71260; 80048; 80053; 80306; 80320; 80329; 81000; 82805; 82962; 83605; 83735; 84100; 84703; 85007; 85025; 85027; 87070; 87077; 87081; 87088; 87186; 87205; 93005; 93041; 94002; 94003; 94799; 96361; 96374; 96375; 99291; 99292

== ENCOUNTER → 2021-01-01 | Outpatient (CLI) | payer OTHER ==
[~2021-01-01] MED LIST changes: +AMOX1TAB12 PO; -CIPR500T4 PO; +CIPR500T5 PO; -OMEP40CA27; +OMEP40CA6; -PANT40TA3 PO; +PANT40TA52 PO; +POTA20TA15 PO
--- NOTE | 2021-01-01 12:57 | Diagnostic Imaging Report ---
INDICATION: Routine screening. Comparison is made with prior mammogram from 01/10/2009. 2-D and 3-D bilateral screening mammography was performed with CAD. Both breasts are heterogeneously dense, limiting the sensitivity of mammography. No mass or malignant-appearing microcalcifications are seen. Axillae are unremarkable. IMPRESSION: BI-RADS Category 1 No mammographic features suspicious for malignancy are identified. ACR BI-RADS Category 1: Negative. Result letter will be mailed to the patient. Note: At least 10% of breast cancer is not imaged by mammography. Dictated by: Dictated on workstation # [id number]
== END ==
LOC: RAD 08:43
PROVIDERS: ATTEND Nurse Practitioner
DX: Z12.31 Encounter for screening mammogram for malignant neoplasm of breast (principal)
CPT/HCPCS: 77063; 77067

== ENCOUNTER 2023-02-26 05:47 | Outpatient (CLI) | payer OTHER ==
[~2023-02-26] VITALS: Ht 167 cm; Wt 104.0 kg
[~2023-02-26 05:47] MED LIST changes: -CITA10TA7; +CITA10TA9; +DICY20TA PO; -DICY20TA10 PO; -DULO60CA6 PO; +DULO60CA7 PO; -ORPH100T; +ORPH100T3; +ORPH100T3 PO; +POTA-179 PO; -POTA20TA15 PO
[2023-02-26] MEDS ORDERED: CLN.1T PO (14:49)
[2023-02-26] MEDS ORDERED: ASCO500T17 PO (14:49)
[2023-02-26] MEDS ORDERED: MULT-1136 PO (14:49)
[2023-02-26] MEDS ORDERED: OXYB5TAB13 PO (14:49)
[2023-02-26] MEDS ORDERED: LAMO200T5 PO (14:49)
[2023-02-26] MEDS ORDERED: TRAZ-227 PO (14:49)
[2023-02-26] MEDS ORDERED: OMEG1CAP24 PO (14:49)
[2023-02-26] MEDS ORDERED: FAMO40TA6 PO (14:49)
[2023-02-26] MEDS ORDERED: CARI3CAP PO (14:49)
== END 2023-02-26 14:27 | disposition home or self-care (01) ==
LOC: PREOP 05:47
PROVIDERS: ATTEND Surgery
DX: Z01.818 Encounter for other preprocedural examination (principal)

== ENCOUNTER 2023-03-11 09:57 | Day surgery (SDC) | payer OTHER ==
[~2023-03-11] VITALS: Ht 167 cm; Wt 104.0 kg
[~2023-03-11 09:57] MED LIST changes: +ASCO500T17 PO; +CARI3CAP PO; +CLN.1T PO; +FAMO40TA6 PO; +LAMO200T5 PO; +MULT-1136 PO; +OMEG1CAP24 PO; +OXYB5TAB13 PO; +TRAZ-227 PO
[2023-03-11] MEDS ORDERED: LACTATED RINGERS 1,000 ML 1,000 ML IV STA (10:08)
[2023-03-11] MEDS ORDERED: HURRICAINE EXT TUBE (BENZOCAINE) XX PRN (10:15)
--- NOTE | 2023-03-11 10:42 | Progress Note-Pre Operative ---
Pre-Operative Progress Note Date H&P Reviewed: Mar 11, 2023 Time H&P Reviewed: 10:40 History & Physical: H&P Reviewed Pre-Operative Diagnosis: Chronic esophagitis, Hx Gonsalo's esophagitis CAROLE LEAL DO Mar 11, 2023 10:42
[2023-03-11] MEDS ORDERED: MIDAZOLAM INJ 2 MG/2 ML VIAL ONE (11:00)
[2023-03-11 11:09] VITALS: BP 121/67
--- NOTE | 2023-03-11 11:14 | Progress Note-Post Operative ---
Post-Operative Progess Note Surgeon (s)/Oil Scout (s) Surgeon CAROLE LEAL DO Oil Scout: n/a Pre-Operative Diagnosis Chronic esophagitis, Hx Gonsalo's esophagitis Post-Operative Diagnosis short segment barretts Procedure & Operative Findings Date of Procedure 03/11/23 Procedure Performed/Findings EGD w/ biopsies Anesthesia Type per DO Estimated Blood Loss Estimated blood loss (mL): scant Specimens/Packing Specimens Removed antrum GE x4 CAROLE LEAL DO Mar 11, 2023 11:14
[2023-03-11 11:15] VITALS: BP 123/59
--- NOTE | 2023-03-11 11:16 | Discharge Inst-Simple/Standard ---
Discharge Inst-Standard Patient Instructions/Follow Up Plan of Care/Instructions/FU: 2 weeks Marilee Activity as Tolerated: Yes Discharge Diet: Regular Diet CAROLE LEAL DO Mar 11, 2023 11:15
[2023-03-11 11:20] VITALS: BP 121/67
[2023-03-11 12:00] VITALS: BP 121/67
--- NOTE | 2023-03-11 13:40 | Anesthesia-General Post-Op ---
MAC Patient Condition Mental Status/LOC: Same as Preop Cardiovascular: Satisfactory Nausea/Vomiting: Absent Respiratory: Satisfactory Pain: Controlled Complications: Absent Post Op Complications Complications None Follow Up Care/Instructions Patient Instructions None needed. Anesthesiology Discharge Order Discharge Order Patient was doing well after the procedure with no complaints, stable vital signs, no apparent adverse anesthesia problems. No complications reported per nursing. GRIFFIN EASLEY DO Mar 11, 2023 13:40
--- NOTE | 2023-03-11 19:10 | OPERATIVE REPORT ---
DATE OF SERVICE: 03/11/2023 PREOPERATIVE DIAGNOSES: Chronic esophagitis, history of Truong's esophagitis. POSTOPERATIVE DIAGNOSIS: Short segment Truong's. SURGEON: Carole Hunt DO ANESTHESIA: Per MDA. ESTIMATED BLOOD LOSS: Scant. PROCEDURES: EGD with biopsies. INDICATIONS: The patient is a 42-year-old female with chronic esophagitis and history of Truong's esophagitis. She understands risks and benefits of procedure and wishes to proceed. Consent was signed in chart. DESCRIPTION OF PROCEDURE: The patient was taken to endoscopy suite, placed in left lateral recumbent position. Timeout was performed. Scope was inserted in the mouth, down the esophagus, stomach, into the duodenum without difficulty. No polyps, masses or ulcerations in the duodenum. Scope was slowly retracted back into the stomach where it was further insufflated. No polyps, masses or ulcerations. Biopsy of the antrum was obtained. Scope was retroflexed, noting no other pathology. Scope was returned to its normal position, slowly withdrawn until distal esophagus. Appearance of short segment of Truong's present. Four quadrant biopsies were obtained. Scope was then slowly retracted back until completely removed. The patient tolerated the procedure well without complications, taken to recovery room in stable condition. RECOMMENDATIONS: The patient will continue on current medications. We will await biopsy results. She will follow up in 2 weeks. She will need repeat endoscopy in 2-3 years. Job ID: [id number] DocumentID: [id number] Dictated Date: 03/11/2023 11:15:42 Maintenance Mechanic Technician Date: 03/11/2023 19:07:00 Dictated By: CAROLE HUNT DO
== END 2023-03-11 12:00 | disposition home or self-care (01) ==
LOC: ENDO 09:57
PROVIDERS: ATTEND Surgery
DX: K22.70 Barrett's esophagus without dysplasia (principal); K31.89 Other diseases of stomach and duodenum; E66.9 Obesity, unspecified; Z68.37 Body mass index [BMI] 37.0-37.9, adult; Z79.899 Other long term (current) drug therapy; Z87.891 Personal history of nicotine dependence